=== PATIENT | female | born 1945 | race Caucasian/White ===

== ENCOUNTER → 2016-08-17 | Outpatient (CLI) | payer MEDICARE, BC ==
--- NOTE | 2016-08-18 15:45 | BD ---
EXAMINATION TYPE: MG DEXA axial skeleton. DATE OF EXAM: 08/17/2016 4:15 PM COMPARISON: 2016 CLINICAL HISTORY: osteoarthritis Height: 5'3 Weight: 232 FRAX RISK QUESTIONS: Alcohol (3 or more units per day): no Family History (Parent hip fracture): no Glucocorticoids (More than 3mos): no (Ex: prednisone, prednisolone, methylprednisolone, dexamethasone, and hydrocortisone). History of Fracture in Adulthood: yes Secondary Osteoporosis: 1. Type 1 Diabetes: no 2. Hyperthyroidism: no 3. Menopause before 45: yes 4. Malnutrition: no 5. Chronic liver disease: no Rheumatoid Arthritis: yes Current Tobacco Use: no RISK FACTORS HISTORY OF: Surgery to Spine/ When: 2016 lumbar Other Fractures since Age 52: When: age 52 Family History of Osteoporosis: Active: Postmenopausal woman: MEDICATIONS: Osteoporosis Medications: Which medication: nose spray How Lon years Additional Medications: blood pressure, cholesterol, heart Additional History: osteoarthritis EXAM MEASUREMENTS: Bone mineral density about the R hip (g/cm2): 0.824 Bone mineral density about the L hip (g/cm2): 0.848 T Score values are as follows: -----R Neck: -1.5 -----L Neck: -1.4 -----R Intertrochanter: -0.6 -----L Intertrochanter: 0.7 Bone mineral density has: Decreased -1.5% since study of: 07/24/2015 IMPRESSION: Osteopenia (T Score between -2.5 and -1 as noted by T score values : Shubham Hips There is slightly increased risk of fracture and the patient may be considered for treatment. Re-Screen 1-2 years. NOTE: T-SCORE=SD OF THE YOUNG ADULT MEAN.
--- NOTE | 2016-08-19 08:57 | MM ---
Reason for exam: screening (asymptomatic). Last mammogram was performed 1 year and 1 month ago. History: Patient is postmenopausal. Physical Findings: A clinical breast exam by your physician is recommended on an annual basis and results should be correlated with mammographic findings. MG Screening Mammo w CAD Bilateral CC and MLO view(s) were taken. Prior study comparison: July 24, 2015, bilateral MG screening mammo w CAD. July 02, 2014, bilateral MG screening mammo w CAD. There are scattered fibroglandular densities. No significant changes when compared with prior studies. ASSESSMENT: Benign, BI-RAD 2 RECOMMENDATION: Routine screening mammogram of both breasts in 1 year.
== END | disposition home or self-care (01) ==
LOC: RADMAMWWP 15:02
PROVIDERS: ATTEND Family Medicine
DX: Z12.31 Encounter for screening mammogram for malignant neoplasm of breast (principal); M85.852 Other specified disorders of bone density and structure, left thigh; M85.851 Other specified disorders of bone density and structure, right thigh
CPT/HCPCS: 77080; G0202

== ENCOUNTER 2017-05-09 03:03 | Emergency (ER) | payer MEDICARE, BC ==
[2017-05-09] MEDS: ACETAMINOPHEN TAB 325 MG TAB PO STA ×2 (04:06→10:29)
[2017-05-09 04:12] LABS: ALT 24 U/L (9-52); AST 41 U/L (14-36); Alkaline Phosphatase 74 U/L (38-126); Amylase 60 U/L (30-110); Anion Gap 9 mmol/L; Blood Urea Nitrogen 36 mg/dL (7-17); Calcium 9.3 mg/dL (8.4-10.2); Carbon Dioxide 22 mmol/L (22-30); Chloride 107 mmol/L (98-107); Glucose 143 mg/dL (74-99); Magnesium 2.1 mg/dL (1.6-2.3); Non-African American GFR(MDRD) >60 (>60 ml/min/1.73 sqM); Potassium 5.3 mmol/L (3.5-5.1); Sodium 138 mmol/L (137-145); Total Protein 7.9 g/dL (6.3-8.2)
[2017-05-09 04:21] LABS: Basophils % (A) 1 %; CH 31.1; CHCM 32.2; Eosinophils # (A) 0.1 k/uL (0-0.7); Eosinophils % (A) 2 %; HCT 41.7 % (34.0-46.0); HDW 2.41; HGB 13.3 gm/dL (11.4-16.0); Luc # (Auto) 0.21; Luc % (Auto) 3; Lymphocytes # (A) 2.1 k/uL (1.0-4.8); Lymphocytes % (A) 27 %; MCH 31.1 pg (25.0-35.0); MCHC 31.9 g/dL (31.0-37.0); MCV 97.3 fL (80.0-100.0); Mean Platelet Volume 7.4; Monocytes # (A) 0.4 k/uL (0-1.0); Monocytes % (A) 6 %; Neutrophils # (A) 4.7 k/uL (1.3-7.7); Neutrophils % (A) 62 %; RBC 4.29 m/uL (3.80-5.40); RDW 13.2 % (11.5-15.5); WBC 7.5 k/uL (3.8-10.6); WBC (Perox) 7.21
[2017-05-09 04:25] LABS: INR 1.1 (<1.2); Partial Thromboplastin Time 21.9 sec (22.0-30.0); Prothrombin Time 10.9 sec (9.0-12.0)
[2017-05-09 04:37] LABS: Creatine Kinase MB 1.7 ng/mL (0.0-2.4)
[2017-05-09 04:39] LABS: Troponin I 0.147 ng/mL (0.000-0.034)
--- NOTE | 2017-05-09 04:53 | XR ---
EXAM: XR Chest, 1 View CLINICAL HISTORY: Right flank pain that radiates into the chest. TECHNIQUE: Frontal view of the chest. COMPARISON: 09/03/2011 FINDINGS: Lungs: Unchanged. No consolidation. Pleural space: Unremarkable. No pneumothorax. Heart: Unremarkable. No cardiomegaly. Mediastinum: Unremarkable. Bones/joints: Osseous structures are unchanged. IMPRESSION: No acute findings without significant interval change.
[2017-05-09] MEDS ORDERED: HEPARIN SODIUM,PORCINE 5,000 UNIT/ML 1 ML VIAL IV ONE (04:58)
[2017-05-09] MEDS ORDERED: HEPARIN SODIUM,PORCINE 5,000 UNIT/ML 1 ML VIAL IV PRN (04:58)
[2017-05-09] MEDS ORDERED: HEPARIN SODIUM,PORCINE/D5W PMX 25,000 UNIT in DEXTROSE/WATER 1 500ML.BAG IV SCH (05:00)
[2017-05-09] MEDS ORDERED: NITROGLYCERIN SL TABS 0.4 MG TAB SUBLINGUAL PRN (08:33)
[2017-05-09] MEDS ORDERED: KETOTIFEN 0.025% OPHTH DROPS 5 ML BTL BOTH EYES PRN (08:36)
[2017-05-09] MEDS ORDERED: METOCLOPRAMIDE 10 MG TAB PO PRN (08:36)
--- NOTE | 2017-05-09 08:58 | ED ---
Chest Pain HPI - General Chief Complaint: Chest Pain Stated Complaint: chest pain Time Seen by Provider: 05/09/17 03:15 Source: EMS Mode of arrival: EMS Limitations: no limitations - History of Present Illness Initial Comments: This patient is a 71-year-old woman who presents to be evaluated for pain to the mid back that radiates around both sides (contrary to triage note which states around one side). Patient states that it started little under an hour before she came in. She was at rest. She states the pain was severe, and felt like a rope wrapped around her. She states that has improved a little bit. She felt like he was hard to take a breath. Patient does not acknowledge worsening or relieving factors. MD Complaint: chest pain Onset/Timin -: hour(s) Onset: during rest Pain Location: other (Mid back) Severity: severe Quality: tightness Consistency: constant Improves With: nothing Worsens With: nothing Anginal Symptoms: dyspnea - Related Data Home Medications Medication Instructions Recorded Confirmed Atenolol [Tenormin] 25 mg PO BID 03/03/14 05/09/17 Azelastine HCl [Optivar] 6 ml OP DAILY PRN 03/03/14 05/09/17 Calcitonin Nasal [Fortical] 0.09 ml NASAL DAILY 03/03/14 05/09/17 Calcium Carbonate [Tums] 500 mg PO TID 03/03/14 05/09/17 Clopidogrel [Plavix] 75 mg PO DAILY 03/03/14 05/09/17 Colesevelam [Welchol] 2 tab PO TID 03/03/14 05/09/17 EPINEPHrine [Epipen 2-Sam] 0.3 mg IM ONCE PRN 03/03/14 05/09/17 Gordon 4 % 1 drop OP QID 03/03/14 05/09/17 Hydrochlorothiazide [Hydrodiuril] 12.5 mg PO DAILY 03/03/14 05/09/17 Meclizine [Antivert] 12.5 mg PO Q6H 03/03/14 05/09/17 Olmesartan [Benicar] 20 mg PO DAILY 03/03/14 05/09/17 Potassium Chloride [Klor-Con 10] 10 meq PO DAILY 03/03/14 05/09/17 RABEprazole SODIUM [Aciphex] 20 mg PO DAILY 03/03/14 05/09/17 Triamcinolone Acetonide [Nasacort 2 spray NASAL DAILY 03/03/14 05/09/17 Aq] amLODIPine BESYLATE [Norvasc] 5 mg PO BID 03/03/14 04/04/16 Previous Rx's Medication Instructions Recorded Metoclopramide HCl [Reglan] 10 mg PO Q6HR PRN #15 tablet 03/03/14 Allergies Allergy/AdvReac Type Severity Reaction Status Date / Time aspirin Allergy Unknown Verified 05/09/17 03:10 butorphanol tartrate Allergy Unknown Verified 05/09/17 03:10 [From Stadol] caffeine Allergy Unknown Verified 05/09/17 03:10 cefaclor [From Ceclor] Allergy Unknown Verified 05/09/17 03:10 cefpodoxime proxetil Allergy Unknown Verified 05/09/17 03:10 [From Vantin] cefuroxime axetil Allergy Unknown Verified 05/09/17 03:10 [From Ceftin] ciprofloxacin [From Cipro] Allergy Unknown Verified 05/09/17 03:10 ciprofloxacin HCl Allergy Unknown Verified 05/09/17 03:10 [From Cipro] doxepin Allergy Unknown Verified 05/09/17 03:10 Iodinated Contrast- Oral and Allergy Unknown Verified 05/09/17 03:10 IV Dye [Iodinated Contrast Media - IV Dye] iodine Allergy Unknown Verified 05/09/17 03:10 ketoprofen [From Oruvail] Allergy Unknown Verified 05/09/17 03:10 lidocaine Allergy Unknown Verified 05/09/17 03:10 [From Terramycin (with lidocaine)] loratadine [From Claritin] Allergy Unknown Verified 05/09/17 03:10 methylprednisolone sodium Allergy Unknown Verified 05/09/17 03:10 succinate [From Solu-Medrol] metronidazole [From Flagyl] Allergy Unknown Verified 05/09/17 03:10 ofloxacin [From Floxin] Allergy Unknown Verified 05/09/17 03:10 oxycodone HCl [From Percocet] Allergy Unknown Verified 05/09/17 03:10 oxytetracycline Allergy Unknown Verified 05/09/17 03:10 [From Terramycin (with lidocaine)] penicillin V potassium Allergy Unknown Verified 05/09/17 03:10 [From Pen-Vee K] pitavastatin calcium Allergy Unknown Verified 05/09/17 03:10 [From Livalo] propoxyphene napsylate Allergy Unknown Verified 05/09/17 03:10 [From Darvocet-N] quinapril HCl [From Accupril] Allergy Unknown Verified 05/09/17 03:10 shellfish derived Allergy Unknown Verified 05/09/17 03:10 solifenacin succinate Allergy Unknown Verified 05/09/17 03:10 [From Vesicare] Sulfa (Sulfonamide Allergy Unknown Verified 05/09/17 03:10 Antibiotics) Tetanus Vaccines and Toxoid Allergy Unknown Verified 05/09/17 03:10 [Tetanus Vaccines & Toxoid] nylon Allergy Unknown Uncoded 05/09/17 03:10 rheomacrodex Allergy Unknown Uncoded 05/09/17 03:10 trianlin Allergy Unknown Uncoded 05/09/17 03:10 Review of Systems ROS Statement: Those systems with pertinent positive or pertinent negative responses have been documented in the HPI. ROS Other: All systems not noted in ROS Statement are negative. Constitutional: Denies: fever, chills Respiratory: Denies: cough, dyspnea Cardiovascular: Reports: as per HPI, chest pain. Denies: palpitations, edema, syncope Gastrointestinal: Denies: abdominal pain, nausea, vomiting Genitourinary: Denies: dysuria Musculoskeletal: Reports: as per HPI, back pain Skin: Denies: rash Neurological: Denies: headache, weakness, numbness Psychiatric: Reports: anxiety EKG Findings - EKG Results: EKG: interpreted by AMALIA WNL, sinus rhythm, normal axis, normal QRS - Blocks, [place], Hypertrophy, ST Abn: Repolarization changes or abnormalities: nonspecific abnormality, ST segment, and/or T wave Past Medical History Past Medical History: GERD/Reflux, Hyperlipidemia, Hypertension, Pulmonary Embolus (PE), Rheumatoid Arthritis (RA) Additional Past Medical History / Comment(s): hypoglycemia, reynauds syndrome, ulcers, hiatal hernia, bells palsy History of Any Multi-Drug Resistant Organisms: None Reported Past Surgical History: Appendectomy, Orthopedic Surgery Additional Past Surgical History / Comment(s): carpal tunnel sx, hemmorhoid sx, miscarriage, left carotid Past Psychological History: No Psychological Hx Reported Smoking Status: Former smoker Past Alcohol Use History: None Reported Past Drug Use History: None Reported General Exam Limitations: no limitations General appearance: alert, in no apparent distress Head exam: Present: atraumatic, normocephalic Eye exam: Present: normal appearance. Absent: scleral icterus, conjunctival injection ENT exam: Present: normal oropharynx Neck exam: Present: normal inspection, full ROM Respiratory exam: Present: normal lung sounds bilaterally. Absent: respiratory distress, wheezes, rales, rhonchi, stridor, chest wall tenderness Cardiovascular Exam: Present: regular rate, normal rhythm, normal heart sounds. Absent: systolic murmur, diastolic murmur, rubs, gallop GI/Abdominal exam: Present: soft. Absent: distended, tenderness, guarding, rebound, mass Extremities exam: Present: normal inspection, normal capillary refill. Absent: pedal edema, calf tenderness Back exam: Present: normal inspection. Absent: CVA tenderness (R), CVA tenderness (L) Neurological exam: Present: alert Skin exam: Present: warm, dry, intact, normal color. Absent: rash Course Vital Signs 05/09/17 05/09/17 05/09/17 03:04 04:07 04:49 Temperature 98.3 F 97.4 F L Pulse Rate 68 56 L 60 Respiratory 20 16 20 Rate Blood Pressure 116/55 95/49 107/53 O2 Sat by Pulse 99 99 98 Oximetry 05/09/17 05/09/17 05/09/17 05:21 06:22 07:30 Temperature Pulse Rate 62 67 72 Respiratory 18 18 Rate Blood Pressure 118/56 107/59 O2 Sat by Pulse 99 99 98 Oximetry 05/09/17 05/09/17 09:06 09:35 Temperature Pulse Rate 74 74 Respiratory 16 16 Rate Blood Pressure 127/58 127/58 O2 Sat by Pulse 100 100 Oximetry - Reevaluation(s) Reevaluation #1: 05/09/17 09:04 Patient's repeat 12-lead ECG shows normal sinus rhythm. The intervals are normal. [place] is normal. There may be very subtle ST depression in lead V4. 05/09/17 09:05 Reevaluation #2: 05/09/17 09:04 Patient's repeat troponin came back elevated at 7.5 and I discussed case with Dr. Irvin who will come and see the patient Chest Pain [facility] This patient is a 71-year-old woman with back pain that radiates around the sides of her chest. Her initial EKG nondiagnostic. The initial cardiac enzyme is slightly elevated, and she is started on heparin. Repeat EKG is Nondiagnostic, but the repeat troponin is elevated at 7.5. Case discussed with the foam machine operator who did come and see the patient and offer heart catheterization here, but the patient is declining, stating that she gets her cardiology care through [facility] and requests transfer there. I discussed the case with the creative services coordinator there and they will accept, Dr. Corley as accepting physician. Disposition Clinical Impression: Acute coronary syndrome, Non-STEMI (non-ST elevated myocardial infarction) Disposition: OTHER INSTITUTION NOT DEFINED Condition: Serious Referrals: Hakeem Torres DO [Primary Care Provider] - 1-2 days - Out of Hospital Transfer - Req. Specs Out of Hospital Transfer - Requested Specifics: Other Emergency Center
[2017-05-09] MEDS ORDERED: CALCIUM CARBONATE 500 MG CHEWABLE PO SCH (09:00)
[2017-05-09] MEDS ORDERED: METOPROLOL TARTRATE 25 MG TAB PO SCH (09:00)
[2017-05-09] MEDS ORDERED: PANTOPRAZOLE 40 MG TABLET PO SCH (09:00)
[2017-05-09] MEDS ORDERED: COLESEVELAM 625 MG TAB PO SCH (09:00)
[2017-05-09] MEDS ORDERED: POTASSIUM CHLORIDE ER 10 MEQ TAB.ER.PRT PO SCH (09:00)
[2017-05-09] MEDS ORDERED: HYDROCHLOROTHIAZIDE 12.5 MG CAP PO SCH (09:00)
[2017-05-09] MEDS ORDERED: LOSARTAN 50 MG TAB PO SCH (09:00)
[2017-05-09] MEDS ORDERED: ATENOLOL 25 MG TAB PO SCH (09:00)
[2017-05-09] MEDS ORDERED: FLUTICASONE 50MCG/SPRAY NASAL 16GM NASAL SCH (09:00)
[2017-05-09] MEDS ORDERED: CLOPIDOGREL 75 MG TAB PO SCH (09:00)
[2017-05-09] MEDS ORDERED: amLODIPine 5 MG TAB PO SCH (09:00)
[2017-05-09 09:07] VITALS: PULSE 74; RESP 16
[2017-05-09] MEDS ORDERED: HYDROmorphone 1 MG/ML 1 ML SYRINGE IVP STA (09:30)
[2017-05-09] MEDS ORDERED: MECLIZINE 12.5 MG TAB PO SCH (10:00)
[2017-05-09] MEDS ORDERED: ACETAMINOPHEN TAB 325 MG TAB PO STA (10:26)
[2017-05-09 10:28] VITALS: BP 121/56; TEMP 98
--- NOTE | 2017-05-09 10:32 | CONS ---
CONSULTATION Mrs. Reinoso is a 71-year-old female, came to the emergency room earlier this morning. She woke up from the sleep. The patient started having pain in the back and subsequently it was radiating down to the chest. Pain was associated with nausea and sweating. The pain was moderate to severe and the pain persisted and she was brought to the emergency room. In emergency room, initial EKG showed mild ST depression in the anterolateral leads. The first troponin was a borderline. The second troponin was 7. Patient still has some mild chest discomfort. This patient has a history of hypertension, hyperlipidemia and peripheral vascular disease. Patient had a carotid endarterectomy done about a year ago at the [facility]. MEDICATIONS: The patient's current primary medications include AcipHex, Antivert, Benicar, Fortical spray, hydrochlorothiazide half a tablet daily, Klor-Con, Lipitor 10 mg daily, Nasacort, Tenormin 25 mg daily, Welchol 625 mg 2 tablets daily and Zyrtec p.r.n. ALLERGIES: PATIENT IS ALLERGIC TO ASPIRIN. PHYSICAL EXAMINATION: At present reveals a 71-year-old, obesely built female who does not appear to be in any acute distress. The patient is having mild discomfort. The patient's blood pressure is 110/80 mmHg. HEENT examination is negative. NECK: Supple. There is no increase in jugular venous pressure. Both the carotid pulses are felt. There is no bruit. Chest is symmetrical. Heart the PMI is not felt. First and second heart sounds are normal. There is a grade 2/6 ejection systolic murmur noted. Lungs are clinically clear to auscultation and percussion. Abdomen is negative. Extremities peripheral pulses are not felt. Both femoral pulses are 2+. EKG shows normal sinus rhythm with mild ST depression in V1 to V2 to V4. The patient's creatinine is normal. FINAL IMPRESSION: 1. This patient came with a prolonged episode of chest pain. Second troponin is 7.0. EKG shows mild ST-segment depression in the anterior lateral leads. This is suggestive of non-Q-wave myocardial infarction. 2. Patient has a known history of peripheral vascular disease with a prior history of carotid endarterectomy. The patient has been heparinized. The patient wishes to be transferred to the [facility] to the revenue specialist she has been following. The risk and benefits were fully explained to the patient. At present, patient clinically is stable and we will make arrangements for the transfer to [facility]. MMPRIMO / THOM: [id number] /
[2017-05-09] MEDS ORDERED: ATORVASTATIN 40 MG TAB PO SCH (21:00)
== END 2017-05-09 10:33 | disposition other institution (70) ==
LOC: EC 03:03 → UNDOADMIN 08:33 → 6ICU 08:33 → EC 10:33
DX: I21.4 Non-ST elevation (NSTEMI) myocardial infarction (principal); I24.9 Acute ischemic heart disease, unspecified; E78.5 Hyperlipidemia, unspecified; I10 Essential (primary) hypertension; K21.9 Gastro-esophageal reflux disease without esophagitis; Z86.711 Personal history of pulmonary embolism; Z87.891 Personal history of nicotine dependence; Z79.02 Long term (current) use of antithrombotics/antiplatelets; Z79.52 Long term (current) use of systemic steroids; Z79.899 Other long term (current) drug therapy; Z88.0 Allergy status to penicillin; Z88.1 Allergy status to other antibiotic agents; Z88.2 Allergy status to sulfonamides; Z88.4 Allergy status to anesthetic agent; Z88.5 Allergy status to narcotic agent; Z88.6 Allergy status to analgesic agent; Z88.7 Allergy status to serum and vaccine; Z88.8 Allergy status to other drugs, medicaments and biological substances; Z91.013 Allergy to seafood; Z91.041 Radiographic dye allergy status; Z91.048 Other nonmedicinal substance allergy status
CPT/HCPCS: 99285 ×2; 96365 ×2; 96366 ×5; 96376 ×2; 36415; 93005; 85379; 80053; 82150; 82550; 82553; 83690; 83735; 84484; 85025; 85610; 85730; 71010; J1644 ×2

== ENCOUNTER 2017-08-07 10:07 | Emergency (ER) | payer MEDICARE, BC ==
[2017-08-07 10:35] VITALS: RESP 18
--- NOTE | 2017-08-07 11:33 | ED ---
ENT HPI - General Chief complaint: ENT Stated complaint: NOSEBLEED Time Seen by Provider: 08/07/17 10:50 Source: patient Mode of arrival: ambulatory Limitations: no limitations - History of Present Illness Initial comments: This is a 72-year-old female with a history of CAD and Brilinta and aspirin presents emergency room for a nosebleed. She states it started this morning. Going on for approximately 2 hours. She states that it does go down into her throat every once a while however is mostly coming out from the naris. She denies any lightheadedness or dizziness. No chest pain or short of breath. She states that she is seen her doctor for these nosebleeds multiple times. She is tried home remedies without resolution. Upon evaluation the patient had a nasal clamp on and was not complaining of any further bleeding. - Related Data Home Medications Medication Instructions Recorded Confirmed Atenolol [Tenormin] 25 mg PO BID 03/03/14 05/19/17 Calcitonin Nasal [Fortical] 1 spray NASAL DAILY 03/03/14 05/19/17 Colesevelam [Welchol] 1,875 mg PO BID 03/03/14 05/19/17 EPINEPHrine [Epipen 2-Sam] 0.3 mg IM ONCE PRN 03/03/14 05/19/17 Meclizine [Antivert] 6.25 mg PO Q6H PRN 03/03/14 05/19/17 Olmesartan [Benicar] 20 mg PO DAILY 03/03/14 05/19/17 RABEprazole SODIUM [Aciphex] 20 mg PO DAILY 03/03/14 05/19/17 Triamcinolone Acetonide [Nasacort 2 spray NASAL DAILY PRN 03/03/14 05/19/17 Aq] amLODIPine BESYLATE [Norvasc] 5 mg PO QAM 03/03/14 05/19/17 Amiodarone [Cordarone] 400 mg PO DAILY 05/19/17 05/19/17 Apixaban [Eliquis] 5 mg PO Q12H 05/19/17 05/19/17 Aspirin EC [Ecotrin Low Dose] 81 mg PO DAILY@0900 05/19/17 05/19/17 Atorvastatin [Lipitor] 5 mg PO HS 05/19/17 05/19/17 Calcium Gluconate 500mg 500 mg PO DAILY 05/19/17 05/19/17 Cetirizine HCl [Zyrtec] 2.5 mg PO BID 05/19/17 05/19/17 Hydrochlorothiazide 12.5mg Tab 3.125 mg PO SUSA 05/19/17 05/19/17 Hydrochlorothiazide 12.5mg Tab 6.25 mg PO MOWEFR 05/19/17 05/19/17 Potassium Chloride ER [K-Dur 20] 10 meq PO HS 05/19/17 05/19/17 Potassium Chloride ER [K-Dur 20] 20 meq PO QAM 05/19/17 05/19/17 Ticagrelor [Brilinta] 90 mg PO BID 05/19/17 05/19/17 amLODIPine [Norvasc] 2.5 mg PO HS 05/19/17 05/19/17 Previous Rx's Medication Instructions Recorded Clindamycin [Cleocin] 150 mg PO Q8H #15 capsule 05/19/17 Allergies Allergy/AdvReac Type Severity Reaction Status Date / Time aspirin Allergy Unknown Verified 08/07/17 10:35 butorphanol tartrate Allergy Unknown Verified 08/07/17 10:35 [From Stadol] caffeine Allergy Unknown Verified 08/07/17 10:35 cefaclor [From Ceclor] Allergy Unknown Verified 08/07/17 10:35 cefpodoxime proxetil Allergy Unknown Verified 08/07/17 10:35 [From Vantin] cefuroxime axetil Allergy Unknown Verified 08/07/17 10:35 [From Ceftin] ciprofloxacin [From Cipro] Allergy Unknown Verified 08/07/17 10:35 ciprofloxacin HCl Allergy Unknown Verified 08/07/17 10:35 [From Cipro] doxepin Allergy Unknown Verified 08/07/17 10:35 Iodinated Contrast- Oral and Allergy Unknown Verified 08/07/17 10:35 IV Dye [Iodinated Contrast Media - IV Dye] iodine Allergy Unknown Verified 08/07/17 10:35 ketoprofen [From Oruvail] Allergy Unknown Verified 08/07/17 10:35 lidocaine Allergy Unknown Verified 08/07/17 10:35 [From Terramycin (with lidocaine)] loratadine [From Claritin] Allergy Unknown Verified 08/07/17 10:35 methylprednisolone sodium Allergy Unknown Verified 08/07/17 10:35 succinate [From Solu-Medrol] metronidazole [From Flagyl] Allergy Unknown Verified 08/07/17 10:35 ofloxacin [From Floxin] Allergy Unknown Verified 08/07/17 10:35 oxycodone HCl [From Percocet] Allergy Unknown Verified 08/07/17 10:35 oxytetracycline Allergy Unknown Verified 08/07/17 10:35 [From Terramycin (with lidocaine)] penicillin V potassium Allergy Unknown Verified 08/07/17 10:35 [From Pen-Vee K] pitavastatin calcium Allergy Unknown Verified 08/07/17 10:35 [From Livalo] propoxyphene napsylate Allergy Unknown Verified 08/07/17 10:35 [From Darvocet-N] quinapril HCl [From Accupril] Allergy Unknown Verified 08/07/17 10:35 shellfish derived Allergy Unknown Verified 08/07/17 10:35 solifenacin succinate Allergy Unknown Verified 08/07/17 10:35 [From Vesicare] Sulfa (Sulfonamide Allergy Unknown Verified 08/07/17 10:35 Antibiotics) Tetanus Vaccines and Toxoid Allergy Unknown Verified 08/07/17 10:35 [Tetanus Vaccines & Toxoid] nylon Allergy Unknown Uncoded 08/07/17 10:35 rheomacrodex Allergy Unknown Uncoded 08/07/17 10:35 trianlin Allergy Unknown Uncoded 08/07/17 10:35 Review of Systems ROS Statement: Those systems with pertinent positive or pertinent negative responses have been documented in the HPI. ROS Other: All systems not noted in ROS Statement are negative. Past Medical History Past Medical History: GERD/Reflux, Hyperlipidemia, Hypertension, Myocardial Infarction (OR), Pulmonary Embolus (PE), Rheumatoid Arthritis (RA) Additional Past Medical History / Comment(s): hypoglycemia, reynauds syndrome, ulcers, hiatal hernia, bells palsy History of Any Multi-Drug Resistant Organisms: None Reported Past Surgical History: Appendectomy, Heart Catheterization With Stent, Orthopedic Surgery Additional Past Surgical History / Comment(s): carpal tunnel sx, hemmorhoid sx, miscarriage, left carotid, right radial heart cath with 2 stents 05/09/17 Past Psychological History: No Psychological Hx Reported Smoking Status: Former smoker Past Alcohol Use History: None Reported Past Drug Use History: None Reported General Exam - General Exam Comments Initial Comments: Constitutional: Awake alert Appears comfortable Head: Normocephalic atraumatic Eyes: no conjunctival injection No scleral icterus EOMI ENT: Left near has a small ulceration on the septum anteriorly with a small amount of slow bleeding to this area. No evidence for severe bleeding. No blood going down the posterior pharynx Neck: No JVD Supple Heart: Regular rate rhythm normal S1-S2 no murmurs Lungs: Clear to auscultation bilaterally No wheezing No rales Abdomen: Soft nondistended nontender Extremities: Non edematous DP pulses intact Radial pulses intact Neuro: A&Ox3 No focal neurologic deficits Psych: Appropriate mood and affect Limitations: no limitations Course Vital Signs 08/07/17 08/07/17 10:30 11:41 Temperature 98.4 F 97.9 F Pulse Rate 71 55 L Respiratory 18 18 Rate Blood Pressure 142/78 127/58 O2 Sat by Pulse 97 96 Oximetry Medical Decision Making - Medical Decision Making Is a 72-year-old female came in for nosebleed. At time I evaluated the nosebleed was mostly resolved. I used chemical cautery over the ulceration on the septum she was monitored for 10 minutes and did not have recurrence of the bleeding. She was sent home. Told to watch for any nasal trauma. Needs return emergency Department if she has worsening bleeding and that she cannot control at home. Told to use Afrin and calm ball and nasal clamp at home if it rebleeds. Follow-up with her primary doctor. All questions were answered. Disposition Clinical Impression: Epistaxis Disposition: HOME SELF-CARE Condition: Stable Instructions: Nosebleed (ED) Referrals: Hakeem Torres DO [Primary Care Provider] - 1-2 days
[2017-08-07 11:42] VITALS: BP 127/58; PULSE 55; TEMP 97.9
== END 2017-08-07 11:41 | disposition home or self-care (01) ==
LOC: EC 10:07
DX: R04.0 Epistaxis (principal); I10 Essential (primary) hypertension; I25.2 Old myocardial infarction; E78.5 Hyperlipidemia, unspecified; K21.9 Gastro-esophageal reflux disease without esophagitis; I25.10 Atherosclerotic heart disease of native coronary artery without angina pectoris; Z86.711 Personal history of pulmonary embolism; Z87.891 Personal history of nicotine dependence; Z88.0 Allergy status to penicillin; Z88.1 Allergy status to other antibiotic agents; Z88.2 Allergy status to sulfonamides; Z88.4 Allergy status to anesthetic agent; Z88.5 Allergy status to narcotic agent; Z88.6 Allergy status to analgesic agent; Z88.7 Allergy status to serum and vaccine; Z88.8 Allergy status to other drugs, medicaments and biological substances; Z91.041 Radiographic dye allergy status; Z91.048 Other nonmedicinal substance allergy status; Z91.013 Allergy to seafood; Z79.01 Long term (current) use of anticoagulants; Z79.82 Long term (current) use of aspirin; Z79.899 Other long term (current) drug therapy
CPT/HCPCS: 30901; 99283

== ENCOUNTER 2017-08-08 19:52 | Emergency (ER) | payer MEDICARE, BC ==
[2017-08-08] MEDS ORDERED: SODIUM CHLORIDE 0.9% 1,000 ML IV STA (21:16)
[2017-08-08] MEDS ORDERED: PANTOPRAZOLE 40 MG/10 ML VIAL IVP STA (21:16)
[2017-08-08] MEDS ORDERED: ONDANSETRON 4 MG/2 ML VIAL IVP STA (21:16)
[2017-08-08] MEDS ORDERED: MAG HYDROX/AL HYDROX/SIMETH 30 ML, HYOSCYAMINE ELIXIR 10 ML, CIMETIDINE HCL 300 MG, LID... PO STA ×4 (21:17)
--- NOTE | 2017-08-08 21:22 | ED ---
Nausea/Vomiting/Diarrhea HPI - General Chief complaint: Nausea/Vomiting/Diarrhea Stated complaint: Vomiting/Chills Time Seen by Provider: 08/08/17 20:39 Source: patient, family, RN notes reviewed, old records reviewed Mode of arrival: ambulatory Limitations: no limitations - History of Present Illness Initial comments: This patient is a 72-year-old female presents today with chief complaint of vomiting and diarrhea since 3:00 this evening. She reports that she's had approximately 5 episodes of vomiting and multiple episodes of diarrhea. She states that she has had some epigastric abdominal pain related to this. She denies any food exposures that could've been related to this. She reports that she feels chilled and very dehydrated. She denies any specific chest pain or shortness of breath. She reports that she's been having some minor upper respiratory congestion for the past few weeks. Patient relates that she has had no headache vision changes or neck pain. He does relate that she's been having some back pain associated with this. Denies any urinary symptoms. - Related Data Home Medications Medication Instructions Recorded Confirmed Atenolol [Tenormin] 25 mg PO BID 03/03/14 08/08/17 Calcitonin Nasal [Fortical] 1 spray NASAL DAILY 03/03/14 08/08/17 Colesevelam [Welchol] 1,875 mg PO BID 03/03/14 08/08/17 EPINEPHrine [Epipen 2-Sam] 0.3 mg IM ONCE PRN 03/03/14 08/08/17 Meclizine [Antivert] 6.25 mg PO Q6H PRN 03/03/14 08/08/17 Olmesartan [Benicar] 20 mg PO DAILY 03/03/14 08/08/17 RABEprazole SODIUM [Aciphex] 20 mg PO DAILY 03/03/14 08/08/17 Triamcinolone Acetonide [Nasacort 2 spray NASAL DAILY PRN 03/03/14 08/08/17 Aq] amLODIPine BESYLATE [Norvasc] 5 mg PO QAM 03/03/14 08/08/17 Amiodarone [Cordarone] 200 mg PO DAILY 05/19/17 08/08/17 Aspirin EC [Ecotrin Low Dose] 81 mg PO DAILY@0900 05/19/17 08/08/17 Atorvastatin [Lipitor] 5 mg PO HS 05/19/17 08/08/17 Calcium Gluconate 500mg 500 mg PO DAILY 05/19/17 08/08/17 Cetirizine HCl [Zyrtec] 2.5 mg PO BID 05/19/17 08/08/17 Hydrochlorothiazide 12.5mg Tab 3.125 mg PO SUSA 05/19/17 08/08/17 Hydrochlorothiazide 12.5mg Tab 6.25 mg PO MOWEFR 05/19/17 08/08/17 Potassium Chloride ER [K-Dur 20] 10 meq PO HS 05/19/17 08/08/17 Potassium Chloride ER [K-Dur 20] 20 meq PO QAM 05/19/17 08/08/17 Ticagrelor [Brilinta] 90 mg PO BID 05/19/17 08/08/17 amLODIPine [Norvasc] 2.5 mg PO HS 05/19/17 08/08/17 Oxymetazoline 0.05% Nasl Rosalia 2 spray EA NOSTRIL BID PRN 08/08/17 08/08/17 [Afrin 0.05% Nasal Rosalia] Previous Rx's Medication Instructions Recorded Ondansetron Odt [Zofran Odt] 4 mg PO Q8HR PRN #12 tab 08/08/17 Allergies Allergy/AdvReac Type Severity Reaction Status Date / Time aspirin Allergy Unknown Verified 08/08/17 20:35 butorphanol tartrate Allergy Unknown Verified 08/08/17 20:35 [From Stadol] caffeine Allergy Unknown Verified 08/08/17 20:35 cefaclor [From Ceclor] Allergy Unknown Verified 08/08/17 20:35 cefpodoxime proxetil Allergy Unknown Verified 08/08/17 20:35 [From Vantin] cefuroxime axetil Allergy Unknown Verified 08/08/17 20:35 [From Ceftin] ciprofloxacin [From Cipro] Allergy Unknown Verified 08/08/17 20:35 ciprofloxacin HCl Allergy Unknown Verified 08/08/17 20:35 [From Cipro] doxepin Allergy Unknown Verified 08/08/17 20:35 Iodinated Contrast- Oral and Allergy Unknown Verified 08/08/17 20:35 IV Dye [Iodinated Contrast Media - IV Dye] iodine Allergy Unknown Verified 08/08/17 20:35 ketoprofen [From Oruvail] Allergy Unknown Verified 08/08/17 20:35 lidocaine Allergy Unknown Verified 08/08/17 20:35 [From Terramycin (with lidocaine)] loratadine [From Claritin] Allergy Unknown Verified 08/08/17 20:35 methylprednisolone sodium Allergy Unknown Verified 08/08/17 20:35 succinate [From Solu-Medrol] metronidazole [From Flagyl] Allergy Unknown Verified 08/08/17 20:35 ofloxacin [From Floxin] Allergy Unknown Verified 08/08/17 20:35 oxycodone HCl [From Percocet] Allergy Unknown Verified 08/08/17 20:35 oxytetracycline Allergy Unknown Verified 08/08/17 20:35 [From Terramycin (with lidocaine)] penicillin V potassium Allergy Unknown Verified 08/08/17 20:35 [From Pen-Vee K] pitavastatin calcium Allergy Unknown Verified 08/08/17 20:35 [From Livalo] propoxyphene napsylate Allergy Unknown Verified 08/08/17 20:35 [From Darvocet-N] quinapril HCl [From Accupril] Allergy Unknown Verified 08/08/17 20:35 shellfish derived Allergy Unknown Verified 08/08/17 20:35 solifenacin succinate Allergy Unknown Verified 08/08/17 20:35 [From Vesicare] Sulfa (Sulfonamide Allergy Unknown Verified 08/08/17 20:35 Antibiotics) Tetanus Vaccines and Toxoid Allergy Unknown Verified 08/08/17 20:35 [Tetanus Vaccines & Toxoid] nylon Allergy Unknown Uncoded 08/08/17 20:15 rheomacrodex Allergy Unknown Uncoded 08/08/17 20:15 trianlin Allergy Unknown Uncoded 08/08/17 20:15 Review of Systems ROS Statement: Those systems with pertinent positive or pertinent negative responses have been documented in the HPI. ROS Other: All systems not noted in ROS Statement are negative. Past Medical History Past Medical History: GERD/Reflux, Hyperlipidemia, Hypertension, Myocardial Infarction (RI), Pulmonary Embolus (PE), Rheumatoid Arthritis (RA) Additional Past Medical History / Comment(s): hypoglycemia, reynauds syndrome, ulcers, hiatal hernia, bells palsy History of Any Multi-Drug Resistant Organisms: None Reported Past Surgical History: Appendectomy, Heart Catheterization With Stent, Orthopedic Surgery Additional Past Surgical History / Comment(s): carpal tunnel sx, hemmorhoid sx, miscarriage, left carotid, right radial heart cath with 2 stents 05/09/17 Past Psychological History: No Psychological Hx Reported Smoking Status: Former smoker Past Alcohol Use History: None Reported Past Drug Use History: None Reported General Exam - General Exam Comments Initial Comments: This patient is a 72-year-old female. No acute distress. Limitations: no limitations General appearance: alert, in no apparent distress Head exam: Present: atraumatic, normocephalic, normal inspection Eye exam: Present: normal appearance, PERRL, EOMI. Absent: scleral icterus, conjunctival injection, periorbital swelling ENT exam: Present: normal exam, mucous membranes moist Neck exam: Present: normal inspection. Absent: tenderness, meningismus, lymphadenopathy Respiratory exam: Present: normal lung sounds bilaterally Cardiovascular Exam: Present: regular rate, normal rhythm, systolic murmur. Absent: normal heart sounds, diastolic murmur, rubs, gallop, clicks GI/Abdominal exam: Present: soft, tenderness (Minimal epigastric tenderness.), normal bowel sounds. Absent: distended, guarding, rebound, rigid Extremities exam: Present: normal inspection, full ROM, normal capillary refill. Absent: tenderness, pedal edema, joint swelling, calf tenderness Back exam: Present: normal inspection Neurological exam: Present: alert, oriented X3, CN II-XII intact Psychiatric exam: Present: normal affect, normal mood Skin exam: Present: warm, dry, intact, normal color. Absent: rash Course Vital Signs 08/08/17 08/08/17 20:10 22:16 Temperature 97.3 F L 97.6 F Pulse Rate 68 70 Respiratory 16 18 Rate Blood Pressure 136/60 117/56 O2 Sat by Pulse 98 99 Oximetry - Reevaluation(s) Reevaluation #1: 08/08/17 22:54 Patient is reevaluated reports she feels much better at this time. Denies any abdominal pain no tenderness. Medical Decision Making - Medical Decision Making This patient is a 72-year-old female presents today with sudden onset of vomiting and diarrhea. Patient has had no fever or chills. She states that she has no specific abdominal pains had some minimal epigastric tenderness. Patient EKG was reviewed and normal. Patient's labwork was reviewed. She does have a mildly elevated white blood cell count. Discusses likely inflammatory related to patient's vomiting and diarrhea. I discussed that we will give patient 2 L of fluid for dehydration. Discussed following up with her primary care physician as well. Discussed if she has any fevers chills or abdominal pain she should return for further evaluation including computed tomography scan. She KUB was reviewed and normal bowel gas pattern. Patient will be discharged at this time with diagnosis of acute nausea vomiting likely a viral gastroenteritis. Discussed she should take Zofran and small sips of fluid. Discussed return parameters. Patient is history plan will comply. - Lab Data Result diagrams: 08/08/17 21:00 08/08/17 21:00 Lab Results 08/08/17 08/08/17 08/08/17 Range/Units 21:00 21:00 21:00 WBC 14.2 H (3.8-10.6) k/uL RBC 4.57 (3.80-5.40) m/uL Hgb 14.2 (11.4-16.0) gm/dL Hct 44.5 (34.0-46.0) % MCV 97.5 (80.0-100.0) fL MCH 31.2 (25.0-35.0) pg MCHC 32.0 (31.0-37.0) g/dL RDW 15.3 (11.5-15.5) % Plt Count 178 (150-450) k/uL Neutrophils % 92 % Lymphocytes % 2 % Monocytes % 4 % Eosinophils % 1 % Basophils % 0 % Neutrophils # 13.1 H (1.3-7.7) k/uL Lymphocytes # 0.3 L (1.0-4.8) k/uL Monocytes # 0.5 (0-1.0) k/uL Eosinophils # 0.1 (0-0.7) k/uL Basophils # 0.0 (0-0.2) k/uL Sodium 142 (137-145) mmol/L Potassium 4.1 (3.5-5.1) mmol/L Chloride 107 (98-107) mmol/L Carbon Dioxide 23 (22-30) mmol/L Anion Gap 12 mmol/L BUN 30 H (7-17) mg/dL Creatinine 0.90 (0.52-1.04) mg/dL Est GFR (MDRD) Af Amer >60 (>60 ml/min/1.73 sqM) Est GFR (MDRD) Non-Af >60 (>60 ml/min/1.73 sqM) Glucose 139 H (74-99) mg/dL Calcium 9.8 (8.4-10.2) mg/dL Total Bilirubin 0.6 (0.2-1.3) mg/dL AST 22 (14-36) U/L ALT 28 (9-52) U/L Alkaline Phosphatase 69 (38-126) U/L Troponin I <0.012 (0.000-0.034) ng/mL Total Protein 8.0 (6.3-8.2) g/dL Albumin 4.7 (3.5-5.0) g/dL Amylase 112 H (30-110) U/L Lipase 331 H (23-300) U/L Urine Color Urine Appearance (Clear) Urine pH (5.0-8.0) Ur Specific [place] (1.001-1.035) Urine Protein (Negative) Urine Glucose (UA) (Negative) Urine Ketones (Negative) Urine Blood (Negative) Urine Nitrite (Negative) Urine Bilirubin (Negative) Urine Urobilinogen (<2.0) mg/dL Ur Leukocyte Esterase (Negative) Urine RBC (0-5) /hpf Urine WBC (0-5) /hpf Ur Squamous Epith Cells (0-4) /hpf Urine Bacteria (None) /hpf Hyaline Casts (0-2) /lpf Urine Mucus (None) /hpf Influenza Type A RNA (Not Detectd) Influenza Type B (PCR) (Not Detectd) 08/08/17 08/08/17 Range/Units 21:38 21:38 WBC (3.8-10.6) k/uL RBC (3.80-5.40) m/uL Hgb (11.4-16.0) gm/dL Hct (34.0-46.0) % MCV (80.0-100.0) fL MCH (25.0-35.0) pg MCHC (31.0-37.0) g/dL RDW (11.5-15.5) % Plt Count (150-450) k/uL Neutrophils % % Lymphocytes % % Monocytes % % Eosinophils % % Basophils % % Neutrophils # (1.3-7.7) k/uL Lymphocytes # (1.0-4.8) k/uL Monocytes # (0-1.0) k/uL Eosinophils # (0-0.7) k/uL Basophils # (0-0.2) k/uL Sodium (137-145) mmol/L Potassium (3.5-5.1) mmol/L Chloride (98-107) mmol/L Carbon Dioxide (22-30) mmol/L Anion Gap mmol/L BUN (7-17) mg/dL Creatinine (0.52-1.04) mg/dL Est GFR (MDRD) Af Amer (>60 ml/min/1.73 sqM) Est GFR (MDRD) Non-Af (>60 ml/min/1.73 sqM) Glucose (74-99) mg/dL Calcium (8.4-10.2) mg/dL Total Bilirubin (0.2-1.3) mg/dL AST (14-36) U/L ALT (9-52) U/L Alkaline Phosphatase (38-126) U/L Troponin I (0.000-0.034) ng/mL Total Protein (6.3-8.2) g/dL Albumin (3.5-5.0) g/dL Amylase (30-110) U/L Lipase (23-300) U/L Urine Color Yellow Urine Appearance Cloudy H (Clear) Urine pH 5.5 (5.0-8.0) Ur Specific [place] 1.019 (1.001-1.035) Urine Protein 1+ H (Negative) Urine Glucose (UA) Negative (Negative) Urine Ketones Negative (Negative) Urine Blood Negative (Negative) Urine Nitrite Negative (Negative) Urine Bilirubin Negative (Negative) Urine Urobilinogen <2.0 (<2.0) mg/dL Ur Leukocyte Esterase Negative (Negative) Urine RBC 2 (0-5) /hpf Urine WBC 1 (0-5) /hpf Ur Squamous Epith Cells 3 (0-4) /hpf Urine Bacteria Occasional H (None) /hpf Hyaline Casts 118 H (0-2) /lpf Urine Mucus Many H (None) /hpf Influenza Type A RNA Not Detected (Not Detectd) Influenza Type B (PCR) Not Detected (Not Detectd) 08/08/17 22:48 EKG shows normal sinus rhythm, normal EKG noted. Ventricularly of 70 bpm. IN interval 176 most seconds. QRS duration 88 ms. QT QTc is 448/483 ms. No evidence of ST elevation or T-wave inversion. Notrauma ventricular arrhythmias. - Radiology Data Radiology results: report reviewed KUB is reviewed and negative for any acute process. Disposition Clinical Impression: Gastroenteritis, Vomiting, Acute diarrhea Disposition: HOME SELF-CARE Condition: Good Instructions: Acute Nausea and Vomiting (ED) Additional Instructions: Patient should have clear liquids for the next any 4 hours. Take them and nausea medicine as needed every 8 hours. Recommended following up with her primary care physician. Return to the emergency department if there are any alarming signs or symptoms occur including fevers, chills, continued diarrhea or vomiting for more than 24 hours. Return if there is any specific abdominal pain. Prescriptions: Ondansetron Odt [Zofran Odt] 4 mg PO Q8HR PRN #12 tab PRN Reason: Nausea Referrals: Hakeem Torres DO [Primary Care Provider] - 1-2 days Time of Disposition: 22:57
[2017-08-08 21:29] LABS: Basophils % (A) 0 %; Eosinophils # (A) 0.1 k/uL (0-0.7); Eosinophils % (A) 1 %; HCT 44.5 % (34.0-46.0); HGB 14.2 gm/dL (11.4-16.0); Lymphocytes # (A) 0.3 k/uL (1.0-4.8); Lymphocytes % (A) 2 %; MCH 31.2 pg (25.0-35.0); MCV 97.5 fL (80.0-100.0); Mean Platelet Volume 8.5; Monocytes # (A) 0.5 k/uL (0-1.0); Monocytes % (A) 4 %; Neutrophils # (A) 13.1 k/uL (1.3-7.7); Neutrophils % (A) 92 %; Platelet Count 178 k/uL (150-450); RBC 4.57 m/uL (3.80-5.40); RDW 15.3 % (11.5-15.5); WBC 14.2 k/uL (3.8-10.6)
[2017-08-08 21:39] LABS: ALT 28 U/L (9-52); AST 22 U/L (14-36); Albumin 4.7 g/dL (3.5-5.0); Alkaline Phosphatase 69 U/L (38-126); Amylase 112 U/L (30-110); Anion Gap 12 mmol/L; Blood Urea Nitrogen 30 mg/dL (7-17); Calcium 9.8 mg/dL (8.4-10.2); Carbon Dioxide 23 mmol/L (22-30); Chloride 107 mmol/L (98-107); Glucose 139 mg/dL (74-99); Lipase 331 U/L (23-300); Potassium 4.1 mmol/L (3.5-5.1); Sodium 142 mmol/L (137-145); Total Bilirubin 0.6 mg/dL (0.2-1.3)
[2017-08-08 21:54] LABS: Appearance,Urine Cloudy (Clear); Bacteria,Urine Occasional /hpf; Bilirubin,Urine Negative (Negative); Blood,Urine Negative (Negative); Color,Urine Yellow; Glucose,Urine (UA) Negative (Negative); Hyaline Casts,Urine 118 /lpf (0-2); Ketones,Urine Negative (Negative); Leukocyte Esterase,Urine Negative (Negative); Mucus,Urine Many /hpf; Nitrite,Urine Negative (Negative); PH, Urine 5.5 (5.0-8.0); Protein,Urine 1+ (Negative); RBC,Urine 2 /hpf (0-5); Specific Gravity,Urine 1.019 (1.001-1.035); Squamous Epithelial Cell,Urine 3 /hpf (0-4); Urobilinogen,Urine <2.0 mg/dL (<2.0); WBC,Urine 1 /hpf (0-5)
--- NOTE | 2017-08-08 21:59 | XR ---
EXAMINATION TYPE: XR KUB DATE OF EXAM: 08/08/2017 9:50 PM CLINICAL HISTORY: Abdominal pain TECHNIQUE: Single supine KUB image of the abdomen is obtained. COMPARISON: None. FINDINGS: Scattered gas is seen in non-distended small bowel loops. Gas and fecal material is seen in non-distended colon. There is no visceromegaly, pneumoperitoneum, or abnormal calcification apprecia soo. The lung bases are clear and the osseous structures are intact. Fusion hardware is noted in the lumbar spine. IMPRESSION: Overall nonobstructive bowel gas pattern.
[2017-08-08 22:17] VITALS: BP 117/56; PULSE 70; RESP 18; TEMP 97.6
[2017-08-08] MEDS ORDERED: SODIUM CHLORIDE 0.9% 1,000 ML IV ONE (22:23)
[2017-08-08] MEDS ORDERED: ONDANSETRON 4 MG ODT STARTER PACK 2 TAB BTL PO STA (22:57)
== END 2017-08-08 23:25 | disposition home or self-care (01) ==
LOC: EC 19:52
DX: K52.9 Noninfective gastroenteritis and colitis, unspecified (principal); K21.9 Gastro-esophageal reflux disease without esophagitis; E78.5 Hyperlipidemia, unspecified; I10 Essential (primary) hypertension; I25.2 Old myocardial infarction; Z90.49 Acquired absence of other specified parts of digestive tract; Z95.5 Presence of coronary angioplasty implant and graft; Z87.891 Personal history of nicotine dependence; Z79.899 Other long term (current) drug therapy; Z79.82 Long term (current) use of aspirin; Z88.6 Allergy status to analgesic agent; Z88.8 Allergy status to other drugs, medicaments and biological substances; Z88.1 Allergy status to other antibiotic agents; Z91.041 Radiographic dye allergy status; Z91.048 Other nonmedicinal substance allergy status; Z88.4 Allergy status to anesthetic agent; Z88.5 Allergy status to narcotic agent; Z88.0 Allergy status to penicillin; Z91.013 Allergy to seafood; Z88.7 Allergy status to serum and vaccine; Z88.2 Allergy status to sulfonamides
CPT/HCPCS: 99284; 96374; 96375; 96361 ×2; 36415; 93005; 80053; 82150; 83690; 84484; 85025; 81001; 87086; 87502; 74018; J2405; S0119; C9113

== ENCOUNTER → 2017-10-01 | Outpatient (CLI) | payer MEDICARE, BC ==
--- NOTE | 2017-10-04 12:46 | MM ---
Reason for exam: screening (asymptomatic). Last mammogram was performed 1 year and 2 months ago. History: Patient is postmenopausal. Physical Findings: A clinical breast exam by your physician is recommended on an annual basis and results should be correlated with mammographic findings. MG Screening Mammo w CAD Bilateral CC and MLO view(s) were taken. Prior study comparison: August 17, 2016, bilateral MG screening mammo w CAD. July 24, 2015, bilateral MG screening mammo w CAD. The breast tissue is almost entirely fat. No significant changes when compared with prior studies. ASSESSMENT: Benign, BI-RAD 2 RECOMMENDATION: Routine screening mammogram of both breasts in 1 year.
== END | disposition home or self-care (01) ==
LOC: RADMAMWWP 11:10
PROVIDERS: ATTEND Family Medicine
DX: Z12.31 Encounter for screening mammogram for malignant neoplasm of breast (principal)
CPT/HCPCS: 77067

== ENCOUNTER 2017-10-13 19:14 | Emergency (ER) | payer MEDICARE, BC ==
[2017-10-13 19:24] VITALS: RESP 18
--- NOTE | 2017-10-13 19:46 | ED ---
General Adult HPI - General Chief complaint: Chest Pain Stated complaint: Chest pain/stents put in apr Time Seen by Provider: 10/13/17 19:24 Source: patient, RN notes reviewed, old records reviewed Mode of arrival: wheelchair Limitations: no limitations - History of Present Illness Initial comments: 72-year-old female presents for evaluation of chest pain. Patient has history of coronary artery disease with multiple stents placed in April at [facility]. Her waterway traffic checker is out of [facility]. Pain began at approximately 6 PM which was one hour and 40 minutes ago. Was associated with nausea and diaphoresis. Pain is present but improving at this time. She is currently on aspirin and Brilinta. She denies missing any medication. At the time of her chest pain she also had some dyspnea on palpitations. No vomiting. No abdominal pain. She does complain of some sharp shooting pains in her left arm which is resolved. She also has history of atrial fibrillation, she is not currently on anticoagulation secondary to nosebleeds. - Related Data Home Medications Medication Instructions Recorded Confirmed Atenolol [Tenormin] 25 mg PO BID@07,16 03/03/14 10/13/17 Colesevelam [Welchol] 1,250 mg PO TID 03/03/14 10/13/17 EPINEPHrine [Epipen 2-Sam] 0.3 mg IM ONCE PRN 03/03/14 10/13/17 Meclizine [Antivert] 12.5 mg PO BID PRN 03/03/14 10/13/17 Olmesartan [Benicar] 20 mg PO AC-LUNCH 03/03/14 10/13/17 RABEprazole SODIUM [Aciphex] 20 mg PO BID 03/03/14 10/13/17 Triamcinolone Acetonide [Nasacort 2 spray NASAL DAILY PRN 03/03/14 10/13/17 Aq] amLODIPine BESYLATE [Norvasc] 5 mg PO QAM@0900 03/03/14 10/13/17 Amiodarone [Cordarone] 200 mg PO DAILY 05/19/17 10/13/17 Aspirin EC [Ecotrin Low Dose] 81 mg PO DAILY@0900 05/19/17 10/13/17 Atorvastatin [Lipitor] 5 mg PO DAILY 05/19/17 10/13/17 Cetirizine HCl [Zyrtec] 2.5 mg PO BID 05/19/17 10/13/17 Hydrochlorothiazide 12.5mg Tab 3.125 mg PO SUSA 05/19/17 10/13/17 Hydrochlorothiazide 12.5mg Tab 6.25 mg PO MOWEFR 05/19/17 10/13/17 Potassium Chloride ER [K-Dur 20] 10 meq PO DAILY@1200 05/19/17 10/13/17 Potassium Chloride ER [K-Dur 20] 20 meq PO QAM 05/19/17 10/13/17 Ticagrelor [Brilinta] 90 mg PO DAILY 05/19/17 10/13/17 amLODIPine [Norvasc] 2.5 mg PO HS@2130 05/19/17 10/13/17 Calcitonin Nasal [Fortical 1 spray NASAL DAILY 10/13/17 10/13/17 (Miacalcin)] Calcium Gluc 500mg/Mag/Vit D 1 tab PO DAILY@1200 10/13/17 10/13/17 Carboxymethylcellulose Sodium 1 drop BOTH EYES HS 10/13/17 10/13/17 [Refresh Tears] Allergies Allergy/AdvReac Type Severity Reaction Status Date / Time aspirin Allergy Unknown Verified 10/13/17 19:54 butorphanol tartrate Allergy Unknown Verified 10/13/17 19:54 [From Stadol] caffeine Allergy Unknown Verified 10/13/17 19:54 cefaclor [From Ceclor] Allergy Unknown Verified 10/13/17 19:54 cefpodoxime proxetil Allergy Unknown Verified 10/13/17 19:54 [From Vantin] cefuroxime axetil Allergy Unknown Verified 10/13/17 19:54 [From Ceftin] ciprofloxacin [From Cipro] Allergy Unknown Verified 10/13/17 19:54 ciprofloxacin HCl Allergy Unknown Verified 10/13/17 19:54 [From Cipro] doxepin Allergy Unknown Verified 10/13/17 19:54 Iodinated Contrast- Oral and Allergy Unknown Verified 10/13/17 19:54 IV Dye [Iodinated Contrast Media - IV Dye] iodine Allergy Unknown Verified 10/13/17 19:54 ketoprofen [From Oruvail] Allergy Unknown Verified 10/13/17 19:54 lidocaine Allergy Unknown Verified 10/13/17 19:54 [From Terramycin (with lidocaine)] loratadine [From Claritin] Allergy Unknown Verified 10/13/17 19:54 methylprednisolone sodium Allergy Unknown Verified 10/13/17 19:54 succinate [From Solu-Medrol] metronidazole [From Flagyl] Allergy Unknown Verified 10/13/17 19:54 ofloxacin [From Floxin] Allergy Unknown Verified 10/13/17 19:54 oxycodone HCl [From Percocet] Allergy Unknown Verified 10/13/17 19:54 oxytetracycline Allergy Unknown Verified 10/13/17 19:54 [From Terramycin (with lidocaine)] penicillin V potassium Allergy Unknown Verified 10/13/17 19:54 [From Pen-Vee K] pitavastatin calcium Allergy Unknown Verified 10/13/17 19:54 [From Livalo] propoxyphene napsylate Allergy Unknown Verified 10/13/17 19:54 [From Darvocet-N] quinapril HCl [From Accupril] Allergy Unknown Verified 10/13/17 19:54 shellfish derived Allergy Unknown Verified 10/13/17 19:54 solifenacin succinate Allergy Unknown Verified 10/13/17 19:54 [From Vesicare] Sulfa (Sulfonamide Allergy Unknown Verified 10/13/17 19:54 Antibiotics) Tetanus Vaccines and Toxoid Allergy Unknown Verified 10/13/17 19:54 [Tetanus Vaccines & Toxoid] nylon Allergy Unknown Uncoded 10/13/17 19:24 rheomacrodex Allergy Unknown Uncoded 10/13/17 19:24 trianlin Allergy Unknown Uncoded 10/13/17 19:24 Review of Systems ROS Statement: Those systems with pertinent positive or pertinent negative responses have been documented in the HPI. ROS Other: All systems not noted in ROS Statement are negative. Past Medical History Past Medical History: GERD/Reflux, Hyperlipidemia, Hypertension, Myocardial Infarction (SD), Pulmonary Embolus (PE), Rheumatoid Arthritis (RA) Additional Past Medical History / Comment(s): hypoglycemia, reynauds syndrome, ulcers, hiatal hernia, bells palsy History of Any Multi-Drug Resistant Organisms: None Reported Past Surgical History: Appendectomy, Heart Catheterization With Stent, Orthopedic Surgery Additional Past Surgical History / Comment(s): carpal tunnel sx, hemmorhoid sx, miscarriage, left carotid, right radial heart cath with 2 stents 05/09/17 Past Psychological History: No Psychological Hx Reported Smoking Status: Former smoker Past Alcohol Use History: None Reported Past Drug Use History: None Reported General Exam Limitations: no limitations General appearance: alert, in no apparent distress Head exam: Present: atraumatic, normocephalic Eye exam: Present: normal appearance, PERRL ENT exam: Present: normal exam Neck exam: Present: normal inspection. Absent: tenderness, meningismus Respiratory exam: Present: normal lung sounds bilaterally, chest wall tenderness (Anterior chest wall tenderness which is in the location of the patient's pain complaint). Absent: respiratory distress, wheezes Cardiovascular Exam: Present: regular rate, normal rhythm, normal heart sounds GI/Abdominal exam: Present: soft. Absent: distended, tenderness Extremities exam: Present: normal inspection, full ROM, normal capillary refill. Absent: pedal edema Back exam: Present: normal inspection, full ROM. Absent: tenderness Neurological exam: Present: alert, oriented X3, CN II-XII intact. Absent: motor sensory deficit Psychiatric exam: Present: normal affect, normal mood Skin exam: Present: warm, dry, intact. Absent: cyanosis, diaphoretic Course Vital Signs 10/13/17 10/13/17 10/13/17 19:22 19:40 19:43 Temperature 98.1 F Pulse Rate 81 76 Pulse Rate [ 76 Resident Care Supervisor ] Respiratory 18 18 Rate Blood Pressure 142/71 140/62 O2 Sat by Pulse 97 98 Oximetry 10/13/17 20:52 Temperature Pulse Rate 72 Pulse Rate [ Resident Care Supervisor ] Respiratory 18 Rate Blood Pressure 124/59 O2 Sat by Pulse 97 Oximetry EKG Findings - EKG Comments: EKG Findings:: EKG shows normal sinus rhythm, ventricular rate 80, MS interval 174, QRS duration 88, QTC 472, there is ST segment depression in the lateral precordium V4 V5 and V6, no ST segment elevation. These findings are new compared to EKG in July 2017. Medical Decision Making - Medical Decision Making 72-year-old female presenting with typical chest pain. Patient had recent coronary stenting in April 2017. Pain is similar to her pain at that time. EKG shows nonspecific ST segment abnormality with ST segment depression in the lateral precordium. Chest x-ray shows no acute findings, hemoglobin stable 13.5, normal white blood cell count, normal electrolytes. Initial troponin is negative, BNP is normal. Given EKG changes and typical pain. Patient is started on heparin. She refuses aspirin and nitroglycerin. She will be transferred to [facility] in [place] where her waterway traffic checker is located. Accepting physician Dr. Reid - Lab Data Result diagrams: 10/13/17 19:47 10/13/17 19:47 Lab Results 10/13/17 10/13/17 10/13/17 Range/Units 19:47 19:47 19:47 WBC 6.8 (3.8-10.6) k/uL RBC 4.43 (3.80-5.40) m/uL Hgb 13.5 (11.4-16.0) gm/dL Hct 41.7 (34.0-46.0) % MCV 94.3 (80.0-100.0) fL MCH 30.4 (25.0-35.0) pg MCHC 32.3 (31.0-37.0) g/dL RDW 14.5 (11.5-15.5) % Plt Count 211 (150-450) k/uL Neutrophils % 58 % Lymphocytes % 28 % Monocytes % 8 % Eosinophils % 2 % Basophils % 0 % Neutrophils # 3.9 (1.3-7.7) k/uL Lymphocytes # 1.9 (1.0-4.8) k/uL Monocytes # 0.6 (0-1.0) k/uL Eosinophils # 0.1 (0-0.7) k/uL Basophils # 0.0 (0-0.2) k/uL PT (9.0-12.0) sec INR (<1.2) APTT (22.0-30.0) sec Sodium 142 (137-145) mmol/L Potassium 4.7 (3.5-5.1) mmol/L Chloride 104 (98-107) mmol/L Carbon Dioxide 24 (22-30) mmol/L Anion Gap 14 mmol/L BUN 27 H (7-17) mg/dL Creatinine 0.77 (0.52-1.04) mg/dL Est GFR (CKD-EPI)AfAm >90 (>60 ml/min/1.73 sqM) Est GFR (CKD-EPI)NonAf 78 (>60 ml/min/1.73 sqM) Glucose 114 H (74-99) mg/dL Calcium 9.6 (8.4-10.2) mg/dL Magnesium 2.2 (1.6-2.3) mg/dL Total Bilirubin 0.5 (0.2-1.3) mg/dL AST 25 (14-36) U/L ALT 22 (9-52) U/L Alkaline Phosphatase 105 (38-126) U/L Total Creatine Kinase 54 (30-135) U/L CK-MB (CK-2) 0.5 (0.0-2.4) ng/mL CK-MB (CK-2) Rel Index 0.9 Troponin I <0.012 (0.000-0.034) ng/mL NT-Pro-B Natriuret Pep pg/mL Total Protein 8.1 (6.3-8.2) g/dL Albumin 4.7 (3.5-5.0) g/dL Lipase 130 (23-300) U/L 10/13/17 10/13/17 Range/Units 19:47 19:47 WBC (3.8-10.6) k/uL RBC (3.80-5.40) m/uL Hgb (11.4-16.0) gm/dL Hct (34.0-46.0) % MCV (80.0-100.0) fL MCH (25.0-35.0) pg MCHC (31.0-37.0) g/dL RDW (11.5-15.5) % Plt Count (150-450) k/uL Neutrophils % % Lymphocytes % % Monocytes % % Eosinophils % % Basophils % % Neutrophils # (1.3-7.7) k/uL Lymphocytes # (1.0-4.8) k/uL Monocytes # (0-1.0) k/uL Eosinophils # (0-0.7) k/uL Basophils # (0-0.2) k/uL PT 10.5 (9.0-12.0) sec INR 1.1 (<1.2) APTT 23.9 (22.0-30.0) sec Sodium (137-145) mmol/L Potassium (3.5-5.1) mmol/L Chloride (98-107) mmol/L Carbon Dioxide (22-30) mmol/L Anion Gap mmol/L BUN (7-17) mg/dL Creatinine (0.52-1.04) mg/dL Est GFR (CKD-EPI)AfAm (>60 ml/min/1.73 sqM) Est GFR (CKD-EPI)NonAf (>60 ml/min/1.73 sqM) Glucose (74-99) mg/dL Calcium (8.4-10.2) mg/dL Magnesium (1.6-2.3) mg/dL Total Bilirubin (0.2-1.3) mg/dL AST (14-36) U/L ALT (9-52) U/L Alkaline Phosphatase (38-126) U/L Total Creatine Kinase (30-135) U/L CK-MB (CK-2) (0.0-2.4) ng/mL CK-MB (CK-2) Rel Index Troponin I (0.000-0.034) ng/mL NT-Pro-B Natriuret Pep 290 pg/mL Total Protein (6.3-8.2) g/dL Albumin (3.5-5.0) g/dL Lipase (23-300) U/L Critical Care Time Critical Care Time: Yes Total Critical Care Time: 35 Disposition Clinical Impression: Unstable angina pectoris Disposition: OTHER INSTITUTION NOT DEFINED Condition: Stable Referrals: Hakeem Torres DO [Primary Care Provider] - 1-2 days Time of Disposition: 21:22 - Out of Hospital Transfer - Req. Specs Out of Hospital Transfer - Requested Specifics: Other Emergency Center ( Transfer to [facility])
--- NOTE | 2017-10-13 20:09 | XR ---
EXAMINATION TYPE: XR chest 2V DATE OF EXAM: 10/13/2017 COMPARISON: 05/09/2017 HISTORY: Palpitations and chest pain TECHNIQUE: Frontal and lateral views of the chest are obtained. FINDINGS: Heart is normal. Thoracic aorta is atheromatous. Lungs are clear of infiltrate. There is n o heart failure. There is no pleural effusion. Bony thorax is intact. There are chest leads. IMPRESSION: No active cardiopulmonary disease. No change.
[2017-10-13 20:28] LABS: Basophils % (A) 0 %; Eosinophils # (A) 0.1 k/uL (0-0.7); Eosinophils % (A) 2 %; HCT 41.7 % (34.0-46.0); HGB 13.5 gm/dL (11.4-16.0); Lymphocytes # (A) 1.9 k/uL (1.0-4.8); Lymphocytes % (A) 28 %; MCH 30.4 pg (25.0-35.0); MCHC 32.3 g/dL (31.0-37.0); MCV 94.3 fL (80.0-100.0); Mean Platelet Volume 7.9; Monocytes # (A) 0.6 k/uL (0-1.0); Monocytes % (A) 8 %; Neutrophils # (A) 3.9 k/uL (1.3-7.7); Neutrophils % (A) 58 %; Platelet Count 211 k/uL (150-450); RBC 4.43 m/uL (3.80-5.40); RDW 14.5 % (11.5-15.5); WBC 6.8 k/uL (3.8-10.6)
[2017-10-13 20:37] LABS: INR 1.1 (<1.2); Partial Thromboplastin Time 23.9 sec (22.0-30.0); Prothrombin Time 10.5 sec (9.0-12.0)
[2017-10-13 20:50] LABS: ALT 22 U/L (9-52); AST 25 U/L (14-36); Albumin 4.7 g/dL (3.5-5.0); Alkaline Phosphatase 105 U/L (38-126); Anion Gap 14 mmol/L; Blood Urea Nitrogen 27 mg/dL (7-17); Calcium 9.6 mg/dL (8.4-10.2); Carbon Dioxide 24 mmol/L (22-30); Chloride 104 mmol/L (98-107); Glucose 114 mg/dL (74-99); Lipase 130 U/L (23-300); Magnesium 2.2 mg/dL (1.6-2.3); Potassium 4.7 mmol/L (3.5-5.1); Sodium 142 mmol/L (137-145); Total Bilirubin 0.5 mg/dL (0.2-1.3); Total Protein 8.1 g/dL (6.3-8.2)
[2017-10-13] MEDS ORDERED: ASPIRIN 325 MG TAB PO STA (20:50)
[2017-10-13] MEDS ORDERED: NITROGLYCERIN SL TABS 0.4 MG TAB SUBLINGUAL STA (20:50)
[2017-10-13 20:54] LABS: Creatine Kinase 54 U/L (30-135)
[2017-10-13 21:08] LABS: Creatine Kinase MB 0.5 ng/mL (0.0-2.4); Troponin I <0.012 ng/mL (0.000-0.034)
[2017-10-13] MEDS ORDERED: HEPARIN SODIUM,PORCINE 5,000 UNIT/ML 1 ML VIAL IV PRN (21:16)
[2017-10-13] MEDS ORDERED: HEPARIN SODIUM,PORCINE 5,000 UNIT/ML 1 ML VIAL IV ONE (21:16)
[2017-10-13] MEDS ORDERED: HEPARIN SOD,PORK IN 0.45% NACL 25,000 UNIT in 0.45% NACL 1 500ML.BAG IV SCH (21:30)
[2017-10-13 21:39] VITALS: BP 136/67; PULSE 85; TEMP 98
== END 2017-10-13 22:29 | disposition other institution (70) ==
LOC: EC 19:14
DX: I20.0 Unstable angina (principal); K21.9 Gastro-esophageal reflux disease without esophagitis; E78.5 Hyperlipidemia, unspecified; I10 Essential (primary) hypertension; I25.2 Old myocardial infarction; Z86.711 Personal history of pulmonary embolism; Z95.5 Presence of coronary angioplasty implant and graft; Z87.891 Personal history of nicotine dependence; Z79.899 Other long term (current) drug therapy; Z88.0 Allergy status to penicillin; Z88.1 Allergy status to other antibiotic agents; Z88.2 Allergy status to sulfonamides; Z88.4 Allergy status to anesthetic agent; Z88.5 Allergy status to narcotic agent; Z88.6 Allergy status to analgesic agent; Z88.7 Allergy status to serum and vaccine; Z88.8 Allergy status to other drugs, medicaments and biological substances; Z91.013 Allergy to seafood; Z91.041 Radiographic dye allergy status; Z91.048 Other nonmedicinal substance allergy status
CPT/HCPCS: 36415; 93005; 83880; 80053; 82550; 82553; 83690; 83735; 84484; 85025; 85610; 85730; 71046; 99291; 96365; 96376; J1644 ×2

== ENCOUNTER → 2018-03-01 | Outpatient (CLI) | payer MEDICARE, BC ==
--- NOTE | 2018-03-01 11:32 | US ---
EXAMINATION TYPE: US kidneys/renal and bladder DATE OF EXAM: 03/01/2018 COMPARISON: US, CT CLINICAL HISTORY: N20.0 kidney stones. Pt states recent kidney stone with stent procedure EXAM MEASUREMENTS: Right Kidney: 10.9 x 5.5 x 6.0 cm Left Kidney: 12.1 x 6.1 x 5.6 cm Right Kidney: Possible parapelvic cysts, largest= 1.7 x 1.4 x 0.7 cm Left Kidney: Possible multiple parapelvic cysts vs. dilated calyces Bladder: wnl Bilateral Jets seen: Yes There is no evidence for hydronephrosis at this point in time. No nephrolithiasis is seen. No kash s are identified. The urinary bladder is anechoic. Bilateral ureteral jets are seen. IMPRESSION: 1. I cannot exclude left-sided hydronephrosis. Consider CT correlation. 2. Parapelvic cysts also suspected bilaterally.
== END | disposition home or self-care (01) ==
LOC: RADUSWWP 10:51
PROVIDERS: ATTEND Surgery
DX: N20.0 Calculus of kidney (principal)
CPT/HCPCS: 76770

== ENCOUNTER 2018-04-08 18:33 | Emergency (ER) | payer MEDICARE, BC ==
[2018-04-08 19:10] VITALS: PULSE 69
--- NOTE | 2018-04-08 19:33 | ED ---
General Adult HPI <Issac Durbin - Last Filed: 04/09/18 02:26> - General Source: patient Mode of arrival: wheelchair Limitations: no limitations <Gray Perales - Last Filed: 04/09/18 21:39> - General Chief complaint: Chest Pain Stated complaint: CHest Pain, SOB - History of Present Illness Initial comments: Dictation was produced using [employer] dictation software. please excuse any grammatical, word or spelling errors. Chief Complaint: 72-year-old female past medical history of myocardial infarction,, GERD, dyslipidemia, pulmonary embolus presents with shortness breath and chest pressure. History of Present Illness: Patient is a 72-year-old female with multiple cardiac comorbidities presents with chest pressure. She states there is mild association of shortness of breath. Patient has a history of pulmonary embolus, severe aortic stenosis. There is plans to do aortic valve repair. Her transition teacher is based out of [place]. Patient states his chest pressure located to his left anterior chest. Denies any radiation to the neck or shoulders. No associated diaphoresis. Patient states she had chest pain with a previous heart attack however today her symptoms of remind her of that instance. Patient was recently started on azithromycin for inner ear pressure by her primary care physician. The ROS documented in this emergency department record has been reviewed and confirmed by me. Those systems with pertinent positive or negative responses have been documented in the HPI. All other systems are other negative and/or noncontributory. (Gary Perales) - Related Data Home Medications Medication Instructions Recorded Confirmed Atenolol [Tenormin] 25 mg PO BID@03/03/14 04/08/18 Colesevelam [Welchol] 1,250 mg PO TID 03/03/14 04/08/18 amLODIPine BESYLATE [Norvasc] 5 mg PO BID 03/03/14 04/08/18 Amiodarone [Cordarone] 200 mg PO DAILY 05/19/17 04/08/18 Atorvastatin [Lipitor] 5 mg PO DAILY 05/19/17 04/08/18 Cetirizine HCl [Zyrtec] 5 mg PO BID 05/19/17 04/08/18 Calcium Gluc 500mg/Mag/Vit D 1 tab PO DAILY@1200 10/13/17 04/08/18 Azithromycin [Zithromax] See Taper PO DIRECTED 04/08/18 04/08/18 Furosemide [Lasix] 40 mg PO DAILY 04/08/18 04/08/18 Potassium Chloride ER [K-Dur 10] 15 meq PO DAILY 04/08/18 04/08/18 Allergies Allergy/AdvReac Type Severity Reaction Status Date / Time aspirin Allergy Unknown Verified 10/13/17 19:54 butorphanol tartrate Allergy Unknown Verified 10/13/17 19:54 [From Stadol] caffeine Allergy Unknown Verified 10/13/17 19:54 cefaclor [From Ceclor] Allergy Unknown Verified 10/13/17 19:54 cefpodoxime proxetil Allergy Unknown Verified 10/13/17 19:54 [From Vantin] cefuroxime axetil Allergy Unknown Verified 10/13/17 19:54 [From Ceftin] ciprofloxacin [From Cipro] Allergy Unknown Verified 10/13/17 19:54 ciprofloxacin HCl Allergy Unknown Verified 10/13/17 19:54 [From Cipro] doxepin Allergy Unknown Verified 10/13/17 19:54 Iodinated Contrast- Oral and Allergy Unknown Verified 10/13/17 19:54 IV Dye [Iodinated Contrast Media - IV Dye] iodine Allergy Unknown Verified 10/13/17 19:54 ketoprofen [From Oruvail] Allergy Unknown Verified 10/13/17 19:54 lidocaine Allergy Unknown Verified 10/13/17 19:54 [From Terramycin (with lidocaine)] loratadine [From Claritin] Allergy Unknown Verified 10/13/17 19:54 methylprednisolone sodium Allergy Unknown Verified 10/13/17 19:54 succinate [From Solu-Medrol] metronidazole [From Flagyl] Allergy Unknown Verified 10/13/17 19:54 ofloxacin [From Floxin] Allergy Unknown Verified 10/13/17 19:54 oxycodone HCl [From Percocet] Allergy Unknown Verified 10/13/17 19:54 oxytetracycline Allergy Unknown Verified 10/13/17 19:54 [From Terramycin (with lidocaine)] penicillin V potassium Allergy Unknown Verified 10/13/17 19:54 [From Pen-Vee K] pitavastatin calcium Allergy Unknown Verified 10/13/17 19:54 [From Livalo] propoxyphene napsylate Allergy Unknown Verified 10/13/17 19:54 [From Darvocet-N] quinapril HCl [From Accupril] Allergy Unknown Verified 10/13/17 19:54 shellfish derived Allergy Unknown Verified 10/13/17 19:54 solifenacin succinate Allergy Unknown Verified 10/13/17 19:54 [From Vesicare] Sulfa (Sulfonamide Allergy Unknown Verified 10/13/17 19:54 Antibiotics) Tetanus Vaccines and Toxoid Allergy Unknown Verified 10/13/17 19:54 [Tetanus Vaccines & Toxoid] nylon Allergy Unknown Uncoded 10/13/17 19:24 rheomacrodex Allergy Unknown Uncoded 10/13/17 19:24 trianlin Allergy Unknown Uncoded 10/13/17 19:24 Review of Systems ROS Other: All systems not noted in ROS Statement are negative. <Issac Durbin - Last Filed: 04/09/18 02:26> ROS Other: All systems not noted in ROS Statement are negative. <Gary Perales - Last Filed: 04/09/18 21:39> ROS Statement: Those systems with pertinent positive or pertinent negative responses have been documented in the HPI. Past Medical History Past Medical History: GERD/Reflux, Hyperlipidemia, Hypertension, Myocardial Infarction (OR), Pulmonary Embolus (PE), Rheumatoid Arthritis (RA) Additional Past Medical History / Comment(s): hypoglycemia, reynauds syndrome, ulcers, hiatal hernia, bells palsy History of Any Multi-Drug Resistant Organisms: None Reported Past Surgical History: Appendectomy, Heart Catheterization With Stent, Orthopedic Surgery Additional Past Surgical History / Comment(s): carpal tunnel sx, hemmorhoid sx, miscarriage, left carotid, right radial heart cath with 2 stents 05/09/17 Past Psychological History: No Psychological Hx Reported Smoking Status: Former smoker Past Alcohol Use History: None Reported Past Drug Use History: None Reported <Gary Perales - Last Filed: 04/09/18 21:39> General Exam <Issac Durbin - Last Filed: 04/09/18 02:26> Limitations: no limitations <Gary Perales - Last Filed: 04/09/18 21:39> - General Exam Comments Initial Comments: PHYSICAL EXAM: General Impression: Alert and oriented x3, not in acute distress HEENT: Normocephalic atraumatic, extra-ocular movements intact, pupils equal and reactive to light bilaterally, mucous membranes moist, TMs clear without any posterior fusion Cardiovascular: Heart regular rate and rhythm, systolic ejection murmur at the aortic location Chest: Lungs clear to auscultation bilaterally, no rhonchi, no wheeze, no rales Abdomen: Bowel sounds present, abdomen soft, non-tender, non-distended, no organomegaly Musculoskeletal: Pulses present and equal in all extremities, no peripheral edema Motor: Power 5/5 bilaterally, no focal deficits noted Neurological: CN II-XII grossly intact, no focal motor or sensory deficits noted Skin: Intact with no visualized rashes Psych: Normal affect and mood (Gary Perales) Course <Issac Durbin - Last Filed: 04/09/18 02:26> <Gary Perales - Last Filed: 04/09/18 21:39> Vital Signs 04/08/18 04/09/18 19:03 02:44 Temperature 98.0 F Pulse Rate 69 69 Respiratory 18 16 Rate Blood Pressure 138/60 145/68 O2 Sat by Pulse 99 98 Oximetry - Reevaluation(s) Reevaluation #1: 04/09/18 02:26 We have attempted to reach the patient's transition teacher paging a number of times. We have also checked a second troponin which is also negative. The patient's chest pressure has subsided. I did recommend patient be admitted for further telemetry monitoring and another set of cardiac enzymes with patient is refusing at this point stating she would like to go home and attempt to reach her transition teacher the morning. She will return if the chest pain increases again (Issac Durbin) Medical Decision Making - Lab Data Result diagrams: 04/08/18 20:12 04/08/18 20:12 <Issac Durbin - Last Filed: 04/09/18 02:26> - Lab Data Result diagrams: 04/08/18 20:12 04/08/18 20:12 <Gary Perales - Last Filed: 04/09/18 21:39> - Medical Decision Making I receive this patient has a sign out. Pending the results of the ventilation perfusion scan. The scan is read as low probability. Discussed results with patient and they would like her personal transition teacher Dr. Thomas ([phone]) informed. (Issac Durbin) ED course: 72-year-old female presents with chest pressure. Patient has extensive cardiac comorbidities. Patient is well-appearing. Physical examination is otherwise benign. Vital signs upon arrival are within acceptable limits.Clinical presentation is suspicion for acute coronary syndrome versus pulmonary embolus. Laboratory evaluation obtained. CBC unremarkable. Coag panel is unremarkable. Patient has d-dimer of 0.62. Metabolic panel shows findings within acceptable limits. Cardiac enzymes are negative. Abdominal labs are negative. X-ray shows no acute processes. Patient unwilling to obtained CT angios for mildly elevated d-dimer. VQ scan was obtained. Patient is signed out to oncoming physician for follow-up of VQ scan and final disposition. EKG interpretation: Ventricular rate 72, normal sinus rhythm, DC interval 202, QRS 92, QTC 486. No DC prolongation, no QTC prolongation, no ST or T-wave changes noted. EKG compared to 10/13/2017 showing no changes. Overall, this EKG is unremarkable (Gary Perales) - Lab Data Lab Results 04/08/18 04/08/18 04/08/18 Range/Units 20:12 20:12 20:12 WBC 5.3 (3.8-10.6) k/uL RBC 4.29 (3.80-5.40) m/uL Hgb 13.6 (11.4-16.0) gm/dL Hct 42.0 (34.0-46.0) % MCV 97.9 (80.0-100.0) fL MCH 31.6 (25.0-35.0) pg MCHC 32.3 (31.0-37.0) g/dL RDW 13.8 (11.5-15.5) % Plt Count 192 (150-450) k/uL Neutrophils % 61 % Lymphocytes % 23 % Monocytes % 9 % Eosinophils % 2 % Basophils % 1 % Neutrophils # 3.2 (1.3-7.7) k/uL Lymphocytes # 1.2 (1.0-4.8) k/uL Monocytes # 0.5 (0-1.0) k/uL Eosinophils # 0.1 (0-0.7) k/uL Basophils # 0.0 (0-0.2) k/uL PT (9.0-12.0) sec INR (<1.2) APTT (22.0-30.0) sec D-Dimer (<0.60) mg/L FEU Sodium 141 (137-145) mmol/L Potassium 4.8 (3.5-5.1) mmol/L Chloride 109 H (98-107) mmol/L Carbon Dioxide 24 (22-30) mmol/L Anion Gap 8 mmol/L BUN 31 H (7-17) mg/dL Creatinine 0.96 (0.52-1.04) mg/dL Est GFR (CKD-EPI)AfAm 69 (>60 ml/min/1.73 sqM) Est GFR (CKD-EPI)NonAf 60 (>60 ml/min/1.73 sqM) Glucose 112 H (74-99) mg/dL Calcium 9.3 (8.4-10.2) mg/dL Magnesium 2.2 (1.6-2.3) mg/dL Total Bilirubin 0.4 (0.2-1.3) mg/dL AST 25 (14-36) U/L ALT 30 (9-52) U/L Alkaline Phosphatase 76 (38-126) U/L Total Creatine Kinase 54 (30-135) U/L CK-MB (CK-2) 0.5 (0.0-2.4) ng/mL CK-MB (CK-2) Rel Index 0.9 Troponin I <0.012 (0.000-0.034) ng/mL Total Protein 7.8 (6.3-8.2) g/dL Albumin 4.4 (3.5-5.0) g/dL Lipase 117 (23-300) U/L 04/08/18 04/09/18 Range/Units 20:12 01:23 WBC (3.8-10.6) k/uL RBC (3.80-5.40) m/uL Hgb (11.4-16.0) gm/dL Hct (34.0-46.0) % MCV (80.0-100.0) fL MCH (25.0-35.0) pg MCHC (31.0-37.0) g/dL RDW (11.5-15.5) % Plt Count (150-450) k/uL Neutrophils % % Lymphocytes % % Monocytes % % Eosinophils % % Basophils % % Neutrophils # (1.3-7.7) k/uL Lymphocytes # (1.0-4.8) k/uL Monocytes # (0-1.0) k/uL Eosinophils # (0-0.7) k/uL Basophils # (0-0.2) k/uL PT 10.0 (9.0-12.0) sec INR 1.0 (<1.2) APTT 22.9 (22.0-30.0) sec D-Dimer 0.62 H (<0.60) mg/L FEU Sodium (137-145) mmol/L Potassium (3.5-5.1) mmol/L Chloride (98-107) mmol/L Carbon Dioxide (22-30) mmol/L Anion Gap mmol/L BUN (7-17) mg/dL Creatinine (0.52-1.04) mg/dL Est GFR (CKD-EPI)AfAm (>60 ml/min/1.73 sqM) Est GFR (CKD-EPI)NonAf (>60 ml/min/1.73 sqM) Glucose (74-99) mg/dL Calcium (8.4-10.2) mg/dL Magnesium (1.6-2.3) mg/dL Total Bilirubin (0.2-1.3) mg/dL AST (14-36) U/L ALT (9-52) U/L Alkaline Phosphatase (38-126) U/L Total Creatine Kinase (30-135) U/L CK-MB (CK-2) (0.0-2.4) ng/mL CK-MB (CK-2) Rel Index Troponin I <0.012 (0.000-0.034) ng/mL Total Protein (6.3-8.2) g/dL Albumin (3.5-5.0) g/dL Lipase (23-300) U/L Disposition Is patient prescribed a controlled substance at d/c from ED?: No <Issac Durbin - Last Filed: 04/09/18 02:26> <Gary Perales - Last Filed: 04/09/18 21:39> Clinical Impression: Chest pain Disposition: HOME SELF-CARE Condition: Fair Instructions: Chest Pain (ED) Referrals: Hakeem Torres DO [Primary Care Provider] - 1-2 days
--- NOTE | 2018-04-08 19:48 | XR ---
EXAMINATION TYPE: XR chest 2V DATE OF EXAM: 04/08/2018 COMPARISON: 10/13/2017 HISTORY: Chest pain TECHNIQUE: Frontal and lateral views of the chest are obtained. FINDINGS: There is no heart failure nor confluent pneumonic infiltrate. Costophrenic angles are corrina r. Thoracic aorta is atheromatous. There are chest leads. There is some enlargement of the azygos lym ph node or azygous vein. IMPRESSION: Possible new azygos adenopathy compared to old exam. Normal heart.
[2018-04-08 20:21] LABS: Basophils % (A) 1 %; Eosinophils # (A) 0.1 k/uL (0-0.7); Eosinophils % (A) 2 %; HGB 13.6 gm/dL (11.4-16.0); Lymphocytes # (A) 1.2 k/uL (1.0-4.8); Lymphocytes % (A) 23 %; MCH 31.6 pg (25.0-35.0); MCHC 32.3 g/dL (31.0-37.0); MCV 97.9 fL (80.0-100.0); Monocytes # (A) 0.5 k/uL (0-1.0); Monocytes % (A) 9 %; Neutrophils # (A) 3.2 k/uL (1.3-7.7); Neutrophils % (A) 61 %; Platelet Count 192 k/uL (150-450); RBC 4.29 m/uL (3.80-5.40); RDW 13.8 % (11.5-15.5); WBC 5.3 k/uL (3.8-10.6)
[2018-04-08 20:31] LABS: Albumin 4.4 g/dL (3.5-5.0); Calcium 9.3 mg/dL (8.4-10.2); Magnesium 2.2 mg/dL (1.6-2.3); Potassium 4.8 mmol/L (3.5-5.1); Total Bilirubin 0.4 mg/dL (0.2-1.3); Total Protein 7.8 g/dL (6.3-8.2)
[2018-04-08 20:32] LABS: Partial Thromboplastin Time 22.9 sec (22.0-30.0)
[2018-04-08 20:40] LABS: D-Dimer 0.62 mg/L FEU (<0.60)
[2018-04-08 20:46] LABS: Creatine Kinase 54 U/L (30-135)
[2018-04-08] MEDS ORDERED: methylPREDNISolone SOD SUCCI 125 MG/2 ML VIAL IV STA (20:54)
[2018-04-08] MEDS ORDERED: FAMOTIDINE 20 MG/2 ML VIAL IV STA (20:54)
[2018-04-08] MEDS ORDERED: diphenhydrAMINE 50 MG/ML 1 ML VIAL IVP STA (20:55)
[2018-04-08 20:59] LABS: Creatine Kinase MB 0.5 ng/mL (0.0-2.4); Troponin I <0.012 ng/mL (0.000-0.034)
--- NOTE | 2018-04-08 23:48 | NM ---
EXAMINATION TYPE: NM pul vent and perfuse DATE OF EXAM: 04/08/2018 COMPARISON: NONE HISTORY: TECHNIQUE: Utilizing inhalation of 68.7 mCi Tc 99m DTPA aerosol and intravenous injection of 5.07 mC i of Tc 99m MAA, ventilation and perfusion images are acquired post injection in multiple projections . FINDINGS: There is fairly uniform distribution on the ventilation images. Perfusion images are within normal li mits. There is no mismatch. IMPRESSION: Negative exam. There is a very low probability of pulmonary embolism.
[2018-04-09 02:44] VITALS: BP 145/68; RESP 16; TEMP 98
== END 2018-04-09 02:45 | disposition home or self-care (01) ==
LOC: EC 18:33
DX: R07.89 Other chest pain (principal); R06.02 Shortness of breath; R79.1 Abnormal coagulation profile; E78.5 Hyperlipidemia, unspecified; I10 Essential (primary) hypertension; I25.2 Old myocardial infarction; M06.9 Rheumatoid arthritis, unspecified; Z86.711 Personal history of pulmonary embolism; Z87.891 Personal history of nicotine dependence; Z88.6 Allergy status to analgesic agent; Z88.8 Allergy status to other drugs, medicaments and biological substances; Z88.1 Allergy status to other antibiotic agents; Z91.041 Radiographic dye allergy status; Z91.018 Allergy to other foods; Z88.2 Allergy status to sulfonamides; Z91.013 Allergy to seafood; Z88.0 Allergy status to penicillin; Z88.5 Allergy status to narcotic agent; Z88.7 Allergy status to serum and vaccine; Z95.5 Presence of coronary angioplasty implant and graft; Z53.29 Procedure and treatment not carried out because of patient's decision for other reasons
CPT/HCPCS: 99285 ×2; 36415 ×2; 93005; 85379; 80053; 82550; 82553; 83690; 83735; 84484 ×2; 85025; 85610; 85730; 71046; 78582; A9540; A9567

== ENCOUNTER → 2018-06-13 | Outpatient (CLI) | payer MEDICARE, BC ==
--- NOTE | 2018-06-14 13:17 | ECHOF ---
Referral Reason:I73.; K21.9; I25.10; I35.0 MEASUREMENTS -------- HEIGHT: 162.6 cm WEIGHT: 111.1 kg BP: 137/59 RVIDd: 2.9 cm (< 3.3) IVSd: 1.1 cm (0.6 - 1.1) LVIDd: 4.4 cm (3.9 - 5.3) LVPWd: 1.2 cm (0.6 - 1.1) IVSs: 1.6 cm LVIDs: 3.3 cm LVPWs: 1.7 cm LA Diam: 3.7 cm (2.7 - 3.8) LAESV Index (A-L): 35.19 ml/m Ao Diam: 2.8 cm (2.0 - 3.7) AV Cusp: 1.2 cm (1.5 - 2.6) MV EXCURSION: 16.594 mm (> 18.000) MV EF SLOPE: 127 mm/s (70 - 150) EPSS: 0.3 cm MV E Rajendra: 0.90 m/s MV DecT: 159 ms MV A Rajendra: 0.74 m/s MV E/A Ratio: 1.22 AV maxP.19 mmHg AV meanP.91 mmHg AR PHT: 502 ms RAP: 5.00 mmHg RVSP: 38.09 mmHg FINDINGS -------- Sinus rhythm. This was a technically good study. The left ventricular size is normal. There is borderline concentric left ventricular hypertrophy. Overall left ventricular systolic function is normal with, an EF between 55 - 60 %. The right ventricle is normal in size. LA is moderately dilated 34-39 ml/m2 The right atrium is normal in size. There is moderate aortic valve sclerosis. There is [id number] aortic regurgitation. There i s severe aortic stenosis present. Peak/mean gradient across the Aortic Valve is 71.19mmHg / 41.91mm Hg. AOV is possible Bicuspid. Mild mitral annular calcification present. Mild mitral regurgitation is present. Mild tricuspid regurgitation present. There is mild pulmonary hypertension. The right ventricular systolic pressure, as measured by Doppler, is 38.09mmHg. There is no pulmonic regurgitation present. The aortic root size is normal. Normal inferior vena cava with normal inspiratory collapse consistent with estimated right atrial pre ssure of 5 mmHg. There is no pericardial effusion. CONCLUSIONS -------- 1. Sinus rhythm. 2. This was a technically good study. 3. The left ventricular size is normal. 4. There is borderline concentric left ventricular hypertrophy. 5. Overall left ventricular systolic function is normal with, an EF between 55 - 60 %. 6. LA is moderately dilated 34-39 ml/m2 7. There is moderate aortic valve sclerosis. 8. There is eozk-fk-[id number] aortic regurgitation. 9. There is severe aortic stenosis present. 10. Peak/mean gradient across the Aortic Valve is 71.19mmHg / 41.91mmHg. 11. AOV is possible Bicuspid. 12. Mild mitral annular calcification present. 13. Mild mitral regurgitation is present. 14. Mild tricuspid regurgitation present. 15. There is mild pulmonary hypertension. 16. There is no pulmonic regurgitation present. 17. The aortic root size is normal. 18. Normal inferior vena cava with normal inspiratory collapse consistent with estimated right atrial pressure of 5 mmHg. 19. There is no pericardial effusion. UNDERWATER TRAPPER: Jemma Melendez RDCS
== END | disposition home or self-care (01) ==
LOC: RADECHMAIN 11:23
PROVIDERS: ATTEND Internal Medicine
DX: I35.0 Nonrheumatic aortic (valve) stenosis (principal); I27.20 Pulmonary hypertension, unspecified; I51.7 Cardiomegaly; I73.00 Raynaud's syndrome without gangrene; K21.9 Gastro-esophageal reflux disease without esophagitis; I25.10 Atherosclerotic heart disease of native coronary artery without angina pectoris
CPT/HCPCS: 93306

== ENCOUNTER 2018-07-13 19:53 | Emergency (ER) | payer MEDICARE, BC ==
[2018-07-13 21:20] LABS: INR 0.9 (<1.2); Partial Thromboplastin Time 22.9 sec (22.0-30.0); Prothrombin Time 9.9 sec (9.0-12.0)
--- NOTE | 2018-07-13 21:21 | XR ---
EXAMINATION TYPE: XR chest 2V DATE OF EXAM: 07/13/2018 COMPARISON: 04/08/2018 HISTORY: Chest pain TECHNIQUE: Frontal and lateral views of the chest are obtained. FINDINGS: There is no heart failure nor confluent pneumonic infiltrate. Costophrenic angles are corrina r. There are chest leads. There is prominent azygos lymph node. There is mild coarsening of interstit ial markings. IMPRESSION: Large azygous lymph node. No change compared to last exam. No pulmonary consolidation or heart failure.
[2018-07-13 21:23] LABS: HCT 40.8 % (34.0-46.0); MCH 30.8 pg (25.0-35.0); MCHC 31.8 g/dL (31.0-37.0); MCV 97.1 fL (80.0-100.0); Mean Platelet Volume 7.2; Platelet Count 188 k/uL (150-450); RBC 4.21 m/uL (3.80-5.40); RDW 14.1 % (11.5-15.5); WBC 5.3 k/uL (3.8-10.6)
[2018-07-13 21:25] LABS: Albumin 4.3 g/dL (3.5-5.0); Calcium 9.3 mg/dL (8.4-10.2); Potassium 4.2 mmol/L (3.5-5.1); Total Bilirubin 0.4 mg/dL (0.2-1.3); Total Protein 7.8 g/dL (6.3-8.2)
[2018-07-13 21:29] LABS: Creatine Kinase 75 U/L (30-135)
[2018-07-13] MEDS ORDERED: FAMOTIDINE 20 MG/2 ML VIAL IV STA (21:36)
[2018-07-13] MEDS ORDERED: ACETAMINOPHEN TAB 325 MG TAB PO STA (21:39)
[2018-07-13 21:41] VITALS: RESP 18
[2018-07-13 21:41] LABS: Band Neutrophils % 3 %; Eosinophils # (M) 0.27 k/uL (0-0.7); Lymphocytes # (M) 0.85 k/uL (1.0-4.8); Monocytes # (M) 0.48 k/uL (0-1.0); Neutrophils % (M) 67 %; Nucleated Red Blood Cells 0 /100 WBC (0-0); Polychromasia Present; Total Cells Counted 100
[2018-07-13 21:42] LABS: Creatine Kinase MB 0.5 ng/mL (0.0-2.4); Troponin I <0.012 ng/mL (0.000-0.034)
--- NOTE | 2018-07-13 22:02 | ED ---
General Adult HPI - General Chief complaint: Chest Pain Stated complaint: Center of back pain. Hx of heart ttacks Time Seen by Provider: 07/13/18 20:51 Source: patient Mode of arrival: ambulatory Limitations: no limitations - History of Present Illness Initial comments: This a 73-year-old feel past medical history of significant cardiovascular disease including stent placement 2 years ago which has occluded patient on aspirin, aortic stenosis nonrheumatic, and history of pulmonary and wasn't presenting today for chief complaint of center of back pain, patient states that the pain radiates towards the arms bilaterally. Patient states that the pain began around noon, she states describes as a dull aching pain. Patient denies any numbness, dizziness, syncope, chest pain. She does admit to dyspnea however she states this is unchanged in characteristic since her initial [place]. Patient denies any worsening shortness of breath or dyspnea on exertion. Patient denies any lower extremity edema, calf pain, recent travel, history of cancer. Remainder of ROS negative, patient denies any recent fever, pain, abdominal pain, nausea or vomiting, dysuria or hematuria, constipation or diarrhea, headaches or visual changes, or any other complaints. Upon arrival patient does not appear to be in acute distress, vital signs within acceptable limits. Patient states has established cardiology care at [facility], where she sees Dr. Lynn. - Related Data Home Medications Medication Instructions Recorded Confirmed Atenolol [Tenormin] 25 mg PO BID 03/03/14 07/13/18 Colesevelam [Welchol] 1,250 mg PO TID@0800,1200,1600 03/03/14 07/13/18 amLODIPine BESYLATE [Norvasc] 5 mg PO DAILY@0930 03/03/14 07/13/18 Amiodarone [Cordarone] 200 mg PO DAILY 05/19/17 07/13/18 Atorvastatin [Lipitor] 5 mg PO HS 05/19/17 07/13/18 Calcium Gluc 500mg/Mag/Vit D 1 tab PO DAILY 10/13/17 07/13/18 Furosemide [Lasix] 40 mg PO DAILY 04/08/18 07/13/18 Potassium Chloride ER [K-Dur 10] 10 meq PO DAILY@0900 04/08/18 07/13/18 Aspirin EC [Ecotrin Low Dose] 81 mg PO DAILY@0930 07/13/18 07/13/18 Calcitonin Nasal [Fortical 1 spray NASAL DAILY 07/13/18 07/13/18 (Miacalcin)] Carboxymethyl/Gly/Poly80/Pf 1 dropper BOTH EYES QID PRN 07/13/18 07/13/18 [Refresh Optive Stanley-3 Drops] Cetirizine HCl [Zyrtec] 2.5 mg PO BID 07/13/18 07/13/18 Cholecalciferol [Vitamin D3] 200 unit PO DAILY@1200 07/13/18 07/13/18 Cholecalciferol [Vitamin D3] 400 unit PO DAILY@1600 07/13/18 07/13/18 EPINEPHrine [Epipen 2-Sam] 0.3 mg IM ONCE PRN 07/13/18 07/13/18 Meclizine [Antivert] 6.25 mg PO Q6H PRN 07/13/18 07/13/18 Olmesartan [Benicar] 10 mg PO DAILY 07/13/18 07/13/18 Potassium Chloride ER [K-Dur 10] 10 meq PO DAILY@1200 07/13/18 07/13/18 RABEprazole SODIUM [Aciphex] 20 mg PO DAILY@1600 07/13/18 07/13/18 Triamcinolone Acetonide [Nasacort] 1 spray EA NOSTRIL DAILY 07/13/18 07/13/18 amLODIPine [Norvasc] 2.5 mg PO HS@2130 07/13/18 07/13/18 Allergies Allergy/AdvReac Type Severity Reaction Status Date / Time aspirin Allergy Unknown Verified 07/13/18 21:42 butorphanol tartrate Allergy Unknown Verified 07/13/18 21:42 [From Stadol] caffeine Allergy Unknown Verified 07/13/18 21:42 cefaclor [From Ceclor] Allergy Unknown Verified 07/13/18 21:42 cefpodoxime proxetil Allergy Unknown Verified 07/13/18 21:42 [From Vantin] cefuroxime axetil Allergy Unknown Verified 07/13/18 21:42 [From Ceftin] ciprofloxacin [From Cipro] Allergy Unknown Verified 07/13/18 21:42 ciprofloxacin HCl Allergy Unknown Verified 07/13/18 21:42 [From Cipro] doxepin Allergy Unknown Verified 07/13/18 21:42 Iodinated Contrast- Oral and Allergy Unknown Verified 07/13/18 21:42 IV Dye [Iodinated Contrast Media - IV Dye] iodine Allergy Unknown Verified 07/13/18 21:42 ketoprofen [From Oruvail] Allergy Unknown Verified 07/13/18 21:42 lidocaine Allergy Unknown Verified 07/13/18 21:42 [From Terramycin (with lidocaine)] loratadine [From Claritin] Allergy Unknown Verified 07/13/18 21:42 methylprednisolone sodium Allergy Unknown Verified 07/13/18 21:42 succinate [From Solu-Medrol] metronidazole [From Flagyl] Allergy Unknown Verified 07/13/18 21:42 ofloxacin [From Floxin] Allergy Unknown Verified 07/13/18 21:42 oxycodone HCl [From Percocet] Allergy Unknown Verified 07/13/18 21:42 oxytetracycline Allergy Unknown Verified 07/13/18 21:42 [From Terramycin (with lidocaine)] penicillin V potassium Allergy Unknown Verified 07/13/18 21:42 [From Pen-Vee K] pitavastatin calcium Allergy Unknown Verified 07/13/18 21:42 [From Livalo] propoxyphene napsylate Allergy Unknown Verified 07/13/18 21:42 [From Darvocet-N] quinapril HCl [From Accupril] Allergy Unknown Verified 07/13/18 21:42 shellfish derived Allergy Unknown Verified 07/13/18 21:42 solifenacin succinate Allergy Unknown Verified 07/13/18 21:42 [From Vesicare] Sulfa (Sulfonamide Allergy Unknown Verified 07/13/18 21:42 Antibiotics) Tetanus Vaccines and Toxoid Allergy Unknown Verified 07/13/18 21:42 [Tetanus Vaccines & Toxoid] nylon Allergy Unknown Uncoded 10/13/17 19:24 rheomacrodex Allergy Unknown Uncoded 10/13/17 19:24 trianlin Allergy Unknown Uncoded 10/13/17 19:24 Review of Systems ROS Statement: Those systems with pertinent positive or pertinent negative responses have been documented in the HPI. ROS Other: All systems not noted in ROS Statement are negative. Constitutional: Denies: fever, chills, night sweats ENT: Denies: ear pain, throat pain Respiratory: Reports: cough (recent cough, none currently), dyspnea (chronic since previous [place]). Denies: wheezes, hemoptysis, stridor Cardiovascular: Reports: dyspnea on exertion. Denies: chest pain, palpitations , edema Gastrointestinal: Denies: abdominal pain, nausea, diarrhea, constipation, hematemesis Genitourinary: Denies: urgency, dysuria, frequency, hematuria Musculoskeletal: Reports: back pain (mid back) Skin: Denies: rash, lesions Neurological: Denies: headache, weakness, numbness, paresthesias, confusion Past Medical History Past Medical History: GERD/Reflux, Hyperlipidemia, Hypertension, Myocardial Infarction ([place]), Pulmonary Embolus ([place]), Rheumatoid Arthritis (RA) Additional Past Medical History / Comment(s): hypoglycemia, reynauds syndrome, ulcers, hiatal hernia, bells palsy History of Any Multi-Drug Resistant Organisms: None Reported Past Surgical History: Appendectomy, Heart Catheterization With Stent, Orthopedic Surgery Additional Past Surgical History / Comment(s): carpal tunnel sx, hemmorhoid sx, miscarriage, left carotid, right radial heart cath with 2 stents 05/09/17 Past Psychological History: No Psychological Hx Reported Smoking Status: Former smoker Past Alcohol Use History: None Reported Past Drug Use History: None Reported General Exam - General Exam Comments Initial Comments: General: The patient is awake and alert, in no distress. (-) Levign sign Eye: +3 mm pupils are equal, round and reactive to light, extra-ocular movements are intact. No nystagmus. There is normal conjunctiva bilaterally. No signs of icterus. Ears, nose, mouth and throat: There are moist mucous membranes and no oral lesions. Neck: The neck is supple, there is no tenderness or JVD. Cardiovascular: There is a regular rate and rhythm. No rub or gallop is appreciated. Holosystolic murmur audible on examination Respiratory: Lungs are clear to auscultation, respirations are non-labored, breath sounds are equal. No wheezes, stridor, rales, or rhonchi. Gastrointestinal: Obese, Soft, non-distended, non-tender abdomen without masses or organomegaly noted. There is no rebound or guarding present. Bowel sounds are unremarkable.No pulsatile massses. Musculoskeletal: No pain to palpation of the thoracic or lumbar spine Normal ROM , no tenderness. Strength 5/5. Sensation intact. Radial pulses equal bilaterally 2+. Neurological: A&O x 3. CN II-XII intact, There are no obvious motor or sensory deficits. Coordination appears grossly intact. Speech is normal. Skin: Skin is warm and dry and no rashes or lesions are noted. No pitting lower extremity edema. No noted diaphoresis Psychiatric: Cooperative, appropriate mood & affect, normal judgment. Limitations: no limitations Course Vital Signs 07/13/18 07/13/18 20:07 21:40 Temperature 98.0 F Pulse Rate 77 75 Respiratory 16 18 Rate Blood Pressure 134/59 151/67 O2 Sat by Pulse 98 98 Oximetry EKG Findings - EKG Comments: EKG Findings:: Ventricular rate 75 bpm, MI interval 194 ms, QRS duration 92ms, QT/QTC 446/498 ms, this is a normal sinus rhythm, there is prolonged patient of the QT, no specific ST or T-wave abnormalities. Medical Decision Making - Medical Decision Making 73yo female presenting chief complaint back pain with significant cardiac history concerning for acute cardiac syndrome, primary embolism or aortic dissection. EKG revealed QT prolongation however patient is on multiple medications including amiodarone which prolonged QT. No ST elevation or depression at this time. Initial troponin negative. X-ray revealed no evidence of heart failure or consolidation. Pt states extensive ALLERGIES, she states she is not the comfortable with care if contrast dye that will be administered for needed evaluation. She is requesting transfer to [facility] for continuity of care and further evaluation. I discussed at length with transfer which include worsening of symptoms and even . Patient does appear stable at this time, vital signs the next limits. No signs of distress. Patient was given atenolol for pain management. At 10:00 PM I spoke with Dr. Carlos jimenez, emergency center he accepted admission patient be transferred via EMS with fluids handing. I discussed case with Dr. Durbin prior to transfer of patient. - Lab Data Result diagrams: 07/13/18 20:30 07/13/18 20:30 Lab Results 07/13/18 07/13/18 07/13/18 Range/Units 20:30 20:30 20:30 WBC 5.3 (3.8-10.6) k/uL RBC 4.21 (3.80-5.40) m/uL Hgb 13.0 (11.4-16.0) gm/dL Hct 40.8 (34.0-46.0) % MCV 97.1 (80.0-100.0) fL MCH 30.8 (25.0-35.0) pg MCHC 31.8 (31.0-37.0) g/dL RDW 14.1 (11.5-15.5) % Plt Count 188 (150-450) k/uL Neutrophils % (Manual) 67 % Band Neutrophils % 3 % Lymphocytes % (Manual) 16 % Monocytes % (Manual) 9 % Eosinophils % (Manual) 5 % Neutrophils # (Manual) 3.70 (1.3-7.7) k/uL Lymphocytes # (Manual) 0.85 L (1.0-4.8) k/uL Monocytes # (Manual) 0.48 (0-1.0) k/uL Eosinophils # (Manual) 0.27 (0-0.7) k/uL Nucleated RBCs 0 (0-0) /100 WBC Polychromasia Present PT (9.0-12.0) sec INR (<1.2) APTT (22.0-30.0) sec Sodium 139 (137-145) mmol/L Potassium 4.2 (3.5-5.1) mmol/L Chloride 107 (98-107) mmol/L Carbon Dioxide 24 (22-30) mmol/L Anion Gap 8 mmol/L BUN 27 H (7-17) mg/dL Creatinine 0.98 (0.52-1.04) mg/dL Est GFR (CKD-EPI)AfAm 67 (>60 ml/min/1.73 sqM) Est GFR (CKD-EPI)NonAf 58 (>60 ml/min/1.73 sqM) Glucose 124 H (74-99) mg/dL Calcium 9.3 (8.4-10.2) mg/dL Magnesium 2.0 (1.6-2.3) mg/dL Total Bilirubin 0.4 (0.2-1.3) mg/dL AST 27 (14-36) U/L ALT 22 (9-52) U/L Alkaline Phosphatase 87 (38-126) U/L Total Creatine Kinase 75 (30-135) U/L CK-MB (CK-2) 0.5 (0.0-2.4) ng/mL CK-MB (CK-2) Rel Index 0.7 Troponin I <0.012 (0.000-0.034) ng/mL Total Protein 7.8 (6.3-8.2) g/dL Albumin 4.3 (3.5-5.0) g/dL 07/13/18 Range/Units 20:30 WBC (3.8-10.6) k/uL RBC (3.80-5.40) m/uL Hgb (11.4-16.0) gm/dL Hct (34.0-46.0) % MCV (80.0-100.0) fL MCH (25.0-35.0) pg MCHC (31.0-37.0) g/dL RDW (11.5-15.5) % Plt Count (150-450) k/uL Neutrophils % (Manual) % Band Neutrophils % % Lymphocytes % (Manual) % Monocytes % (Manual) % Eosinophils % (Manual) % Neutrophils # (Manual) (1.3-7.7) k/uL Lymphocytes # (Manual) (1.0-4.8) k/uL Monocytes # (Manual) (0-1.0) k/uL Eosinophils # (Manual) (0-0.7) k/uL Nucleated RBCs (0-0) /100 WBC Polychromasia PT 9.9 (9.0-12.0) sec INR 0.9 (<1.2) APTT 22.9 (22.0-30.0) sec Sodium (137-145) mmol/L Potassium (3.5-5.1) mmol/L Chloride (98-107) mmol/L Carbon Dioxide (22-30) mmol/L Anion Gap mmol/L BUN (7-17) mg/dL Creatinine (0.52-1.04) mg/dL Est GFR (CKD-EPI)AfAm (>60 ml/min/1.73 sqM) Est GFR (CKD-EPI)NonAf (>60 ml/min/1.73 sqM) Glucose (74-99) mg/dL Calcium (8.4-10.2) mg/dL Magnesium (1.6-2.3) mg/dL Total Bilirubin (0.2-1.3) mg/dL AST (14-36) U/L ALT (9-52) U/L Alkaline Phosphatase (38-126) U/L Total Creatine Kinase (30-135) U/L CK-MB (CK-2) (0.0-2.4) ng/mL CK-MB (CK-2) Rel Index Troponin I (0.000-0.034) ng/mL Total Protein (6.3-8.2) g/dL Albumin (3.5-5.0) g/dL Disposition Clinical Impression: Back pain, Arm paresthesia, left Disposition: OTHER INSTITUTION NOT DEFINED Condition: Stable Is patient prescribed a controlled substance at d/c from ED?: No Referrals: Hakeem Torres DO [Primary Care Provider] - 1-2 days Time of Disposition: 22:10 - Out of Hospital Transfer - Req. Specs Out of Hospital Transfer - Requested Specifics: Other Emergency Center ([facility]-Dr. Gonzalez)
[2018-07-14 00:25] VITALS: BP 155/72; PULSE 72; TEMP 98.3
== END 2018-07-14 00:24 | disposition other institution (70) ==
LOC: EC 19:53
DX: M54.9 Dorsalgia, unspecified (principal); R20.2 Paresthesia of skin; I45.81 Long QT syndrome; K21.9 Gastro-esophageal reflux disease without esophagitis; E78.5 Hyperlipidemia, unspecified; I10 Essential (primary) hypertension; I25.2 Old myocardial infarction; M06.9 Rheumatoid arthritis, unspecified; Z86.711 Personal history of pulmonary embolism; Z87.891 Personal history of nicotine dependence; Z79.82 Long term (current) use of aspirin; Z79.899 Other long term (current) drug therapy; Z88.6 Allergy status to analgesic agent; Z91.018 Allergy to other foods; Z88.1 Allergy status to other antibiotic agents; Z91.041 Radiographic dye allergy status; Z91.013 Allergy to seafood; Z88.7 Allergy status to serum and vaccine; Z88.0 Allergy status to penicillin; Z88.5 Allergy status to narcotic agent; Z88.8 Allergy status to other drugs, medicaments and biological substances; Z95.5 Presence of coronary angioplasty implant and graft; Z53.8 Procedure and treatment not carried out for other reasons
CPT/HCPCS: 36415; 71046; 80053; 82550; 82553; 83735; 84484; 85025; 85610; 85730; 93005; 99285

== ENCOUNTER → 2018-08-16 | Outpatient (CLI) | payer MEDICARE, BC | END | disposition home or self-care (01) | LOC: CPPFTMAIN 14:01 | PROVIDERS: ATTEND Internal Medicine | DX: J98.4 Other disorders of lung (principal); R06.02 Shortness of breath | CPT/HCPCS: 94010; 94726; 94729 ==

== ENCOUNTER 2019-03-06 08:41 | Emergency (ER) | payer MEDICARE, BC ==
[2019-03-06 09:43] LABS: Basophils % (A) 1 %; Eosinophils # (A) 0.2 k/uL (0-0.7); Eosinophils % (A) 3 %; HCT 40.6 % (34.0-46.0); HGB 12.8 gm/dL (11.4-16.0); Lymphocytes # (A) 1.2 k/uL (1.0-4.8); Lymphocytes % (A) 21 %; MCH 29.8 pg (25.0-35.0); MCHC 31.6 g/dL (31.0-37.0); MCV 94.5 fL (80.0-100.0); Mean Platelet Volume 7.3; Monocytes # (A) 0.5 k/uL (0-1.0); Monocytes % (A) 8 %; Neutrophils # (A) 3.7 k/uL (1.3-7.7); Neutrophils % (A) 64 %; Platelet Count 178 k/uL (150-450); RBC 4.29 m/uL (3.80-5.40); RDW 14.3 % (11.5-15.5); WBC 5.9 k/uL (3.8-10.6)
[2019-03-06 09:51] LABS: INR 0.9 (<1.2); Partial Thromboplastin Time 22.8 sec (22.0-30.0); Prothrombin Time 10.1 sec (9.0-12.0)
--- NOTE | 2019-03-06 09:52 | ED ---
General Adult HPI - General Source: patient Mode of arrival: ambulatory Limitations: no limitations <Virgil Herrera - Last Filed: 03/06/19 12:53> <Jose Juan Bedoya - Last Filed: 03/06/19 16:32> - General Chief complaint: Neuro Symptoms/Deficit Stated complaint: rt eye vision problem, headache Time Seen by Provider: 03/06/19 08:56 - History of Present Illness Initial comments: 73-year-old female with a past medical history of hyperlipidemia, hypertension, [place], PE, hypoglycemia, right carotid surgery 2 months ago presents for eye problems. Patient states that about a week ago on Wednesday she had a few minutes of black vision in the right eye. States the vision resolved however it is now a little bit blurry. States that she has had throbbing in the right eye since that time as well. Patient states she has been getting migraines on and off but has never had these symptoms with migraines. States she called her clerical warehouseman today and they were concerned about a blood clot in the eye. Patient unfortunately had her carotid surgery at [facility]. Denies any pain in the neck. Denies any chest pain. Denies any headache at this time. Patient has no other complaints at this time including shortness of breath, chest pain, abdominal pain, nausea or vomiting, headache. (Virgil Herrera) - Related Data Home Medications Medication Instructions Recorded Confirmed Atenolol [Tenormin] 25 mg PO BID 03/03/14 03/06/19 Colesevelam [Welchol] 1,250 mg PO TID@0800,1200,1600 03/03/14 03/06/19 amLODIPine BESYLATE [Norvasc] 5 mg PO DAILY@92903/03/14 03/06/19 Amiodarone [Cordarone] 200 mg PO DAILY 05/19/17 03/06/19 Atorvastatin [Lipitor] 5 mg PO HS 05/19/17 03/06/19 Calcium Gluc 500mg/Mag/Vit D 1 tab PO DAILY 10/13/17 03/06/19 Furosemide [Lasix] 40 mg PO DAILY 04/08/18 03/06/19 Aspirin EC [Ecotrin Low Dose] 81 mg PO DAILY@0907/13/18 03/06/19 Calcitonin Nasal [Fortical 1 spray NASAL DAILY 07/13/18 03/06/19 (Miacalcin)] Carboxymethyl/Gly/Poly80/Pf 1 dropper BOTH EYES QID PRN 07/13/18 03/06/19 [Refresh Optive Stanley-3 Drops] Cetirizine HCl [Zyrtec] 2.5 mg PO BID 07/13/18 03/06/19 Cholecalciferol [Vitamin D3] 200 unit PO DAILY@1200 07/13/18 03/06/19 Cholecalciferol [Vitamin D3] 400 unit PO DAILY@1600 07/13/18 03/06/19 EPINEPHrine [Epipen 2-Sam] 0.3 mg IM ONCE PRN 07/13/18 03/06/19 Meclizine [Antivert] 6.25 mg PO Q6H PRN 07/13/18 03/06/19 Olmesartan [Benicar] 10 mg PO DAILY 07/13/18 03/06/19 RABEprazole SODIUM [Aciphex] 20 mg PO DAILY@1600 07/13/18 03/06/19 Triamcinolone Acetonide [Nasacort] 1 spray EA NOSTRIL DAILY 07/13/18 03/06/19 amLODIPine [Norvasc] 2.5 mg PO HS@2130 07/13/18 03/06/19 Potassium Chloride ER [K-Dur 20] 10 meq PO DAILY@1200 03/06/19 03/06/19 Potassium Chloride ER [K-Dur 20] 20 meq PO DAILY 03/06/19 03/06/19 Allergies Allergy/AdvReac Type Severity Reaction Status Date / Time aspirin Allergy Unknown Verified 03/06/19 09:54 butorphanol tartrate Allergy Unknown Verified 03/06/19 09:54 [From Stadol] caffeine Allergy Unknown Verified 03/06/19 09:54 cefaclor [From Ceclor] Allergy Unknown Verified 03/06/19 09:54 cefpodoxime proxetil Allergy Unknown Verified 03/06/19 09:54 [From Vantin] cefuroxime axetil Allergy Unknown Verified 03/06/19 09:54 [From Ceftin] ciprofloxacin [From Cipro] Allergy Unknown Verified 03/06/19 09:54 ciprofloxacin HCl Allergy Unknown Verified 03/06/19 09:54 [From Cipro] doxepin Allergy Unknown Verified 03/06/19 09:54 Iodinated Contrast- Oral and Allergy Unknown Verified 03/06/19 09:54 IV Dye [Iodinated Contrast Media - IV Dye] iodine Allergy Unknown Verified 03/06/19 09:54 ketoprofen [From Oruvail] Allergy Unknown Verified 03/06/19 09:54 lidocaine Allergy Unknown Verified 03/06/19 09:54 [From Terramycin (with lidocaine)] loratadine [From Claritin] Allergy Unknown Verified 03/06/19 09:54 methylprednisolone sodium Allergy Unknown Verified 03/06/19 09:54 succinate [From Solu-Medrol] metronidazole [From Flagyl] Allergy Unknown Verified 03/06/19 09:54 ofloxacin [From Floxin] Allergy Unknown Verified 03/06/19 09:54 oxycodone HCl [From Percocet] Allergy Unknown Verified 03/06/19 09:54 oxytetracycline Allergy Unknown Verified 03/06/19 09:54 [From Terramycin (with lidocaine)] penicillin V potassium Allergy Unknown Verified 03/06/19 09:54 [From Pen-Vee K] pitavastatin calcium Allergy Unknown Verified 03/06/19 09:54 [From Livalo] propoxyphene napsylate Allergy Unknown Verified 03/06/19 09:54 [From Darvocet-N] quinapril HCl [From Accupril] Allergy Unknown Verified 03/06/19 09:54 shellfish derived Allergy Unknown Verified 03/06/19 09:54 solifenacin succinate Allergy Unknown Verified 03/06/19 09:54 [From Vesicare] Sulfa (Sulfonamide Allergy Unknown Verified 03/06/19 09:54 Antibiotics) Tetanus Vaccines and Toxoid Allergy Unknown Verified 03/06/19 09:54 [Tetanus Vaccines & Toxoid] nylon Allergy Unknown Uncoded 03/06/19 08:48 rheomacrodex Allergy Unknown Uncoded 03/06/19 08:48 trianlin Allergy Unknown Uncoded 03/06/19 08:48 Review of Systems ROS Other: All systems not noted in ROS Statement are negative. <Virgil Herrera - Last Filed: 03/06/19 12:53> ROS Other: All systems not noted in ROS Statement are negative. <Jose Juan Bedoya - Last Filed: 03/06/19 16:32> ROS Statement: Those systems with pertinent positive or pertinent negative responses have been documented in the HPI. Past Medical History Past Medical History: GERD/Reflux, Hyperlipidemia, Hypertension, Myocardial Infarction ([place]), Pulmonary Embolus ([place]), Rheumatoid Arthritis ([place]) Additional Past Medical History / Comment(s): hypoglycemia, reynauds syndrome, ulcers, hiatal hernia, bells palsy History of Any Multi-Drug Resistant Organisms: None Reported Past Surgical History: Appendectomy, Heart Catheterization With Stent, Orthopedic Surgery Additional Past Surgical History / Comment(s): carpal tunnel sx, hemmorhoid sx, miscarriage, laura carotid, right radial heart cath with 2 stents 05/09/17 lithotripsy Past Psychological History: No Psychological Hx Reported Smoking Status: Former smoker Past Alcohol Use History: None Reported Past Drug Use History: None Reported <Virgil Herrera - Last Filed: 03/06/19 12:53> General Exam Limitations: no limitations General appearance: alert, in no apparent distress Head exam: Present: atraumatic, normocephalic, normal inspection Eye exam: Present: normal appearance, PERRL, EOMI. Absent: scleral icterus, conjunctival injection, periorbital swelling Expanded Eyelids: Normal Inspection: Bilateral Pupils: Regular, Round: Bilateral Sclera/Conjunctival: Normal Inspection: Bilateral IOP (R) in mmH IOP (L) in mmH IOP measured with: Tonopen ENT exam: Present: normal exam, mucous membranes moist Neck exam: Present: normal inspection. Absent: tenderness, meningismus, lymphadenopathy Respiratory exam: Present: normal lung sounds bilaterally. Absent: respiratory distress, wheezes, rales, rhonchi, stridor Cardiovascular Exam: Present: regular rate, normal rhythm, normal heart sounds. Absent: systolic murmur, diastolic murmur, rubs, gallop, clicks <Virgil Herrera - Last Filed: 03/06/19 12:53> Course <Jose Juan Bedoya - Last Filed: 03/06/19 16:32> Vital Signs 03/06/19 03/06/19 08:44 13:00 Temperature 98.3 F 98.0 F Pulse Rate 74 70 Respiratory 16 18 Rate Blood Pressure 134/60 130/64 O2 Sat by Pulse 99 99 Oximetry - Reevaluation(s) Reevaluation #1: 03/06/19 16:31 PA supervision: I proceeded [id number] evaluation the patient did discuss Pfizer her and her was present. I did review the imaging. Patient complains some eye pain but no findings thus far and imaging. I did discuss the case with Dr. Capone who is agreed to see the patient in his office. 03/06/19 16:32 Ultrasound imaging was reviewed by me no evidence of any retinal detachment seen at this time (Jose Juan Bedoya) Medical Decision Making - Lab Data Result diagrams: 03/06/19 09:35 03/06/19 09:30 <Virgil Herrera - Last Filed: 03/06/19 12:53> - Lab Data Result diagrams: 03/06/19 09:35 03/06/19 09:30 <Jose Juan Bedoya - Last Filed: 03/06/19 16:32> - Medical Decision Making 73-year-old female presents for blurry vision of the right eye for the past week. Patient had a few minutes of black vision in the right eye about a week ago that then turned to blurry vision and aching in the eye. History of migraines and she has been having frequent migraines over the past week. Patient has a history of carotid surgery on the right 2 months ago. CBC CMP and PTINR unremarkable. Mild dehydration, patient given IV fluids. Visual acuity is 20/20 in the right eye, 20/25 in the left eye. Pressure in the right eye is 26, left eye 24 with tonometer. Exam of the eyes unremarkable. A bedside ultrasound of the right eye does not show any evidence of retinal detachment. CT brain is normal. CT orbits is normal bilaterally. Carotid duplex ultrasound was ordered which shows hemodynamic significant stenosis of the proximal ICA of the left corresponding to approximately 50-69% diameter reduction by Doppler criteria. No mention of stenosis in the right carotid. Patient states her materials clerk and vascular surgeon is aware of the stenosis in the right carotid. Patient's ocular pain could be related to an ocular migraine as she has been expressing migraines lately. However Dr. Bedoya spoke with Dr Capone, and patient will be discharged from the hospital and will go directly to his office. (Virgil Herrera) - Lab Data Lab Results 03/06/19 03/06/19 03/06/19 Range/Units 09:30 09:30 09:35 WBC 5.9 (3.8-10.6) k/uL RBC 4.29 (3.80-5.40) m/uL Hgb 12.8 (11.4-16.0) gm/dL Hct 40.6 (34.0-46.0) % MCV 94.5 (80.0-100.0) fL MCH 29.8 (25.0-35.0) pg MCHC 31.6 (31.0-37.0) g/dL RDW 14.3 (11.5-15.5) % Plt Count 178 (150-450) k/uL Neutrophils % 64 % Lymphocytes % 21 % Monocytes % 8 % Eosinophils % 3 % Basophils % 1 % Neutrophils # 3.7 (1.3-7.7) k/uL Lymphocytes # 1.2 (1.0-4.8) k/uL Monocytes # 0.5 (0-1.0) k/uL Eosinophils # 0.2 (0-0.7) k/uL Basophils # 0.0 (0-0.2) k/uL PT 10.1 (9.0-12.0) sec INR 0.9 (<1.2) APTT 22.8 (22.0-30.0) sec Sodium 141 (137-145) mmol/L Potassium 4.3 (3.5-5.1) mmol/L Chloride 106 (98-107) mmol/L Carbon Dioxide 27 (22-30) mmol/L Anion Gap 8 mmol/L BUN 35 H (7-17) mg/dL Creatinine 0.91 (0.52-1.04) mg/dL Est GFR (CKD-EPI)AfAm 73 (>60 ml/min/1.73 sqM) Est GFR (CKD-EPI)NonAf 64 (>60 ml/min/1.73 sqM) Glucose 124 H (74-99) mg/dL Calcium 9.5 (8.4-10.2) mg/dL Total Bilirubin 0.5 (0.2-1.3) mg/dL AST 26 (14-36) U/L ALT 21 (9-52) U/L Alkaline Phosphatase 59 (38-126) U/L Total Protein 7.7 (6.3-8.2) g/dL Albumin 4.4 (3.5-5.0) g/dL Disposition Is patient prescribed a controlled substance at d/c from ED?: No Time of Disposition: 12:57 <Virgil Herrera - Last Filed: 03/06/19 12:53> <Jose Juan Bedoya - Last Filed: 03/06/19 16:32> Clinical Impression: Ocular pain, right eye Disposition: HOME SELF-CARE Condition: Good Instructions (If sedation given, give patient instructions): Blurred Vision (ED), Eye Pain (ED) Additional Instructions: Please go directly to Dr sanchez office. Follow-up with primary care as well. Return if you have any worsening symptoms. Referrals: Hakeem Torres DO [Primary Care Provider] - 1-2 days Roberto Capone MD [STAFF PHYSICIAN] - 1-2 days
[2019-03-06 10:00] LABS: Albumin 4.4 g/dL (3.5-5.0); Calcium 9.5 mg/dL (8.4-10.2); Potassium 4.3 mmol/L (3.5-5.1); Total Bilirubin 0.5 mg/dL (0.2-1.3); Total Protein 7.7 g/dL (6.3-8.2)
--- NOTE | 2019-03-06 10:06 | CT ---
EXAMINATION TYPE: CT brain wo con DATE OF EXAM: 03/06/2019 COMPARISON: 03/03/2014 INDICATION: Episode of right side vision loss DLP: 948.8 mGycm, Automated exposure control for dose reduction was used. CONTRAST: None CT of the brain is performed utilizing 3 mm thick sections through the posterior fossa and 3 mm thick sections through the remaining calvarium. Study is performed within 24 hours of arrival to the hosp [facility]. No abnormal hyperdensity is present to suggest an acute intracranial hemorrhage. No mass lesion is evident. No acute infarcts are evident. Ventricles and sulci are appropriate for the patient age. Paranasal sinuses and mastoid air cells within the [id number] are clear. IMPRESSIONS: 1. Normal CT Brain 2. No acute intracranial process.
--- NOTE | 2019-03-06 10:12 | CT ---
EXAMINATION TYPE: CT orbits wo con DATE OF EXAM: 03/06/2019 COMPARISON: CT brain same date INDICATION: Episode of right side vision loss DLP: 948.8 mGycm, Automated exposure control for dose reduction was used. CONTRAST: None CT of the orbits is performed utilizing 2 mm thick sections through the level of the orbits.. Study is performed within 24 hours of arrival to the hospital. Findings: Visualized paranasal sinuses are clear. Mastoid air cells are clear . Orbits appear symmetrical. Extraocular muscles appear normal. Intraconal and extraconal fat is norm al. Superior ophthalmic veins appear normal. There is been prior uncinectomies and ethmoidectomies. IMPRESSIONS: 1. Normal bilateral orbits
--- NOTE | 2019-03-06 10:38 | US ---
EXAMINATION TYPE: US carotid duplex BILAT DATE OF EXAM: 03/06/2019 COMPARISON: NONE CLINICAL HISTORY: r vision loss h/o carotid surg 2 mo ago. Left endarterectomy two years ago. EXAM MEASUREMENTS: RIGHT: Peak Systolic Velocity (PSV) cm/sec ----- Right CCA: 107.3 ----- Right ICA: 89.2 ----- Right ECA: 143.6 ICA/CCA ratio: 0.8 RIGHT: End Diastole cm/sec ----- Right CCA: 16.7 ----- Right ICA: 15.4 ----- Right ECA: 14.4 LEFT: Peak Systolic Velocity (PSV) cm/sec ----- Left CCA: 93.3 ----- Left ICA: 287.0 ----- Left ECA: 125.8 ICA/CCA ratio: 3.1 LEFT: End Diastole cm/sec ----- Left CCA: 15.3 ----- Left ICA: 50.1 ----- Left ECA: 6.3 VERTEBRALS (direction of flow): Right Vertebral: Antegrade Left Vertebral: Antegrade Rhythm: Normal Grayscale, color Doppler, spectral Doppler imaging performed of the carotid arteries. Waveform analys is shows elevated peak systolic velocity within the left internal carotid artery proximally, end-kiran tolic velocity also elevated, there is loss of the systolic window, spectral broadening. Elevated lef t ICA velocity causing stenosis. 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 Criteria for Assigning % of Stenosis / Diameter reduction (Estimation based on the indirect measurements of the internal carotid artery velocities (ICA PSV). 1. Normal (no stenosis)=ICA PSV < 125 cm/s: ratio < 2.0: ICA EDV<40 cm/s. 2. Less than 50% stenosis=ICA PSV < 125 cm/s: ratio < 2.0: ICA EDV<40 cm/s. 3. 50 to 69% stenosis=ICA PSV of 125 to 230 cm/s: ration 2.0 ? 4.0: ICA EDV 40-100 cm/s. 4. Greater than 70% stenosis to near occlusion= ICA PSV > 230 cm/s: ratio > 4.0: ICA EDV > 100 cm/s. 5. Near occlusion= ICA PSV velocities may be low or undetectable: variable ratio and ICA EDV. 6. Total occlusion=unable to detect flow.
[2019-03-06] MEDS ORDERED: SODIUM CHLORIDE 0.9% 500 ML 500 ML IV STA (11:04)
[2019-03-06 13:11] VITALS: BP 130/64; PULSE 70; RESP 18; TEMP 98
== END 2019-03-06 13:11 | disposition home or self-care (01) ==
LOC: EC 08:41
DX: H57.11 Ocular pain, right eye (principal); I65.22 Occlusion and stenosis of left carotid artery; E86.0 Dehydration; K21.9 Gastro-esophageal reflux disease without esophagitis; E78.5 Hyperlipidemia, unspecified; I10 Essential (primary) hypertension; I25.2 Old myocardial infarction; Z86.69 Personal history of other diseases of the nervous system and sense organs; Z95.5 Presence of coronary angioplasty implant and graft; Z98.890 Other specified postprocedural states; Z87.891 Personal history of nicotine dependence; Z79.82 Long term (current) use of aspirin; Z79.899 Other long term (current) drug therapy; Z88.6 Allergy status to analgesic agent; Z88.5 Allergy status to narcotic agent; Z88.1 Allergy status to other antibiotic agents; Z91.041 Radiographic dye allergy status; Z88.4 Allergy status to anesthetic agent; Z88.8 Allergy status to other drugs, medicaments and biological substances; Z88.0 Allergy status to penicillin; Z91.013 Allergy to seafood; Z88.2 Allergy status to sulfonamides; Z88.7 Allergy status to serum and vaccine; Z91.048 Other nonmedicinal substance allergy status; Z53.29 Procedure and treatment not carried out because of patient's decision for other reasons
CPT/HCPCS: 36415; 70450; 70480; 80053; 85025; 85610; 85730; 93005; 93880; 99284

== ENCOUNTER → 2019-05-04 | Outpatient (CLI) | payer MEDICARE, BC | END | disposition home or self-care (01) | LOC: LABWHC1 15:58 | PROVIDERS: ATTEND Student in an Organized Health Care Education/Training Program | DX: M25.511 Pain in right shoulder (principal); M75.111 Incomplete rotator cuff tear or rupture of right shoulder, not specified as traumatic; M19.011 Primary osteoarthritis, right shoulder | CPT/HCPCS: 87070 ==

== ENCOUNTER → 2019-09-08 | Outpatient (CLI) | payer MEDICARE, BC ==
[2019-09-08 11:48] LABS: African American GFR (CKD) 64 (>60 ml/min/1.73 sqM); Anion Gap 6 mmol/L; Blood Urea Nitrogen 28 mg/dL (7-17); Calcium 9.4 mg/dL (8.4-10.2); Carbon Dioxide 26 mmol/L (22-30); Chloride 107 mmol/L (98-107); Glucose 155 mg/dL (74-99); Non-African American GFR(CKD) 55 (>60 ml/min/1.73 sqM); Potassium 4.7 mmol/L (3.5-5.1); Sodium 139 mmol/L (137-145)
== END | disposition home or self-care (01) ==
LOC: LABWHC1 11:13
PROVIDERS: ATTEND Internal Medicine
DX: K21.9 Gastro-esophageal reflux disease without esophagitis (principal); I73.00 Raynaud's syndrome without gangrene; I25.10 Atherosclerotic heart disease of native coronary artery without angina pectoris; I35.0 Nonrheumatic aortic (valve) stenosis
CPT/HCPCS: 36415; 80048

== ENCOUNTER → 2019-11-02 | Outpatient (CLI) | payer MEDICARE, BC ==
--- NOTE | 2019-11-02 14:30 | XR ---
EXAMINATION TYPE: XR chest 2V DATE OF EXAM: 11/02/2019 COMPARISON: 07/13/2018 and 04/08/2018 HISTORY: 74 year-old female shortness of breath, bronchitis, R05. TECHNIQUE: Frontal and lateral views FINDINGS: Partially visualized reversed right total shoulder arthroplasty. Heart borderline enlarged. Diffuse interstitial density is unchanged. Soft tissue nodularity at the a zygos esophageal recess region. No monty consolidation or pleural effusion. Endovascular aortic valve replacement. IMPRESSION: 1. Borderline cardiomegaly and interstitial changes. Correlate for mild pulmonary vascular congestion . 2. If there are corresponding signs/symptoms of fluid overload state, follow-up after successful judd tment is recommended to reassess the nodularity at the right paratracheal region and exclude mass/lym phadenopathy. This could represent distention of the azygos vein in the setting of volume overload.
--- NOTE | 2019-11-02 14:55 | US ---
EXAMINATION TYPE: US lower ext pseudo artery RT DATE OF EXAM: 11/02/2019 COMPARISON: NONE CLINICAL HISTORY: Pseudoaneurysm I72. 4. Valve replacement 1 month ago, right groin pain EXAM PERFORMED: Grayscale and color Doppler duplex imaging performed of the groin, post cardiac subha ter to assess for pseudoaneurysm. SIDE PERFORMED: Right Color and Waveform Doppler performed to assess for the presence of pseudoaneurysm; Is there ultrasound evidence of a pseudoaneurysm: no Is there evidence of AV shunting: no Is there a fluid collection present: no Limited scanning performed in the right groin. IMPRESSION: No evident pseudoaneurysm within the right groin.
== END | disposition home or self-care (01) ==
LOC: RADUSMAIN 14:02
PROVIDERS: ATTEND Internal Medicine Interventional Cardiology
DX: I51.7 Cardiomegaly (principal); R05 Cough; R06.02 Shortness of breath; I72.4 Aneurysm of artery of lower extremity
CPT/HCPCS: 71046; 93975

== ENCOUNTER → 2020-03-28 | Outpatient (CLI) | payer MEDICARE, BC ==
--- NOTE | 2020-03-28 15:56 | XR ---
EXAMINATION TYPE: XR lumbar spine 2 or 3V DATE OF EXAM: 03/28/2020 CLINICAL HISTORY: History of fusion with low back pain. TECHNIQUE: Frontal and lateral images of the lumbar spine are obtained. COMPARISON: Prior lumbar spine x-ray January 27, 2016 FINDINGS: There are 5 lumbar type vertebral bodies redemonstrated. There are persistent posterior in terpedicular rods and screws with artificial disc material L5-S1 level. Appearance unchanged. Stable slight grade 1 anterolisthesis L4 on L5. Persistent moderate to severe multilevel anterior and latera l spurring. Vertebral body heights and disc space heights are otherwise maintained. Vascular calcific ation overlying abdominal aorta redemonstrated. New metallic stent graft right common iliac artery no soo. IMPRESSION: As above.
== END | disposition home or self-care (01) ==
LOC: RADXRMAIN 15:17
PROVIDERS: ATTEND Family Medicine
DX: M51.36 Other intervertebral disc degeneration, lumbar region (principal); Z98.1 Arthrodesis status
CPT/HCPCS: 72100

== ENCOUNTER → 2020-04-12 | Day surgery (SDC) | payer MEDICARE, BC ==
[2020-04-11 11:50] VITALS: BMI 44.1
[~2020-04-12] MED LIST: LACTATED RINGERS 1,000 ML IV SCH; LIDOCAINE 1% (10MG/ML) FOR IV START INTRADERMA PRN; LIDOCAINE 1% INJ 10MG/ML (20 ML MDV) ONE; PROPOFOL 10 MG/ML 20 ML VIAL IV ONE
[2020-04-12 08:10] VITALS: RESP 18; TEMP 96
--- NOTE | 2020-04-12 09:01 | P.PCN ---
Date of Procedure: 04/12/20 Procedure(s) Performed: BRIEF HISTORY: Patient is a 74-year-old, pleasant, white female scheduled for an upper endoscopy as a part of evaluation of long-standing history of GERD for the last 15 years duration. Lately has been complaining of chronic persistent nausea with occasional emesis. Her medications were changed from AcipHex to omeprazole 20 mg daily and is feeling better. Scheduled for endoscopy to evaluate further. PROCEDURE PERFORMED: Esophagogastroduodenoscopy with biopsy. PREOPERATIVE DIAGNOSIS: Long-standing history of GERD/chronic persistent nausea. IV sedation per anesthesia. PROCEDURE: After informed consent was obtained, the patient was brought into the endoscopy unit. IV sedation was administered by Anesthesia under continuous monitoring. Initially the Olympus GIF-140 video endoscope was inserted into the mouth. Esophagus intubated without any difficulty. It was gradually advanced into the stomach and duodenum and carefully examined. The bulb and the second part of the duodenum appeared normal. Biopsies were done from the duodenum to rule out celiac disease. The scope at this time was withdrawn to the stomach, adequately insufflated with air, and upon careful examination, mucosa of the antrum, had mild gastritis and biopsies were done from this area. The body, cardia and the fundus appeared normal. The scope was then withdrawn into the esophagus. The GE junction was located at 39 cm from the incisors. The esophagus appeared normal. There were no erosions or ulcerations seen , biopsies were done from the distal esophagus and the patient tolerated the procedure well. IMPRESSION: 1. Mild antral gastritis. 2. No evidence of esophagitis or Motley's esophagus. RECOMMENDATIONS: The findings of this examination were discussed with the patient as well as a family. She was advised to follow with the biopsy results. She will continue with omeprazole 20 mg daily and continue to follow antireflux measures..
[2020-04-12 09:17] VITALS: BP 143/75; PULSE 58
== END ==
LOC: ORWHC2ENDO 07:38 → MERGE 10:50
PROVIDERS: ATTEND Internal Medicine Gastroenterology
DX: K29.50 Unspecified chronic gastritis without bleeding (principal); K21.9 Gastro-esophageal reflux disease without esophagitis; I25.2 Old myocardial infarction; I25.10 Atherosclerotic heart disease of native coronary artery without angina pectoris; I10 Essential (primary) hypertension; I73.9 Peripheral vascular disease, unspecified; E78.5 Hyperlipidemia, unspecified; M06.9 Rheumatoid arthritis, unspecified; I73.00 Raynaud's syndrome without gangrene; Z86.711 Personal history of pulmonary embolism; Z79.82 Long term (current) use of aspirin; Z79.899 Other long term (current) drug therapy; Z90.49 Acquired absence of other specified parts of digestive tract; Z95.4 Presence of other heart-valve replacement; Z95.5 Presence of coronary angioplasty implant and graft
CPT/HCPCS: 88305; 88302; 43239; J2001; J2704

== ENCOUNTER → 2020-06-14 | Outpatient (CLI) | payer MEDICARE, BC ==
--- NOTE | 2020-06-18 10:47 | MM ---
Reason for exam: screening (asymptomatic). Last mammogram was performed 2 years and 8 months ago. History: Patient is postmenopausal. Physical Findings: A clinical breast exam by your physician is recommended on an annual basis and results should be correlated with mammographic findings. MG Screening Mammo w CAD Bilateral CC and MLO view(s) were taken. Prior study comparison: October 01, 2017, bilateral MG screening mammo w CAD. August 17, 2016, bilateral MG screening mammo w CAD. There are scattered fibroglandular densities. There is chronic nodularity in the left breast. Benign oil cyst calcifications. No significant changes when compared with prior studies. ASSESSMENT: Benign, BI-RAD 2 RECOMMENDATION: Routine screening mammogram of both breasts in 1 year.
== END | disposition home or self-care (01) ==
LOC: RADMAMWWP 08:50
PROVIDERS: ATTEND Family Medicine
DX: Z12.31 Encounter for screening mammogram for malignant neoplasm of breast (principal)
CPT/HCPCS: 77067

== ENCOUNTER 2020-09-21 | Emergency (ER) | payer MEDICARE, BC ==
--- NOTE | 2020-09-21 21:43 | ED ---
Skin/Abscess/FB HPI - General Chief complaint: Skin/Abscess/Foreign Body Stated complaint: Allergic Reaction Time Seen by Provider: 09/21/20 21:25 Source: patient Mode of arrival: ambulatory Limitations: no limitations - History of Present Illness Initial comments: 75-year-old female presents with ALLERGIC reaction to the first covid vaccine. Patient states 10 days ago she got the first vaccine in about 3-4 hours later she developed itchy red arm right where she got the injection. Patient states she tolerated is expecting this. Patient then stated over the last few days she noticed increased rash on the back of her neck and upper back she is very itchy and now today she feels sensation in the left side of her tongue and face just feels "different". Patient denies any fever nausea vomiting. Patient has significant medication ALLERGIES patient denies any shortness of breath wheezing or trouble breathing. MD complaint: rash, other (itching) -: days(s) Location: head, neck, back Consistency: constant Improves with: medication (benedryl) Context: new medication (vaccine) Associated symptoms: itching - Related Data Home Medications Medication Instructions Recorded Confirmed Colesevelam [Welchol] 1,250 mg PO TID 03/03/14 04/12/20 amLODIPine BESYLATE [Norvasc] 5 mg PO QAM 03/03/14 04/11/20 atenoloL [Tenormin] 25 mg PO BID 03/03/14 04/11/20 Amiodarone [Cordarone] 200 mg PO QAM 05/19/17 04/11/20 Atorvastatin [Lipitor] 5 mg PO HS 05/19/17 04/12/20 Calcium Gluc 500mg/Mag/Vit D 1 tab PO DAILY 10/13/17 04/12/20 Furosemide [Lasix] 60 mg PO DAILY 04/08/18 04/12/20 Aspirin EC [Ecotrin Low Dose] 81 mg PO DAILY 07/13/18 04/12/20 Calcitonin Nasal [Fortical 1 spray NASAL DAILY 07/13/18 04/12/20 (Miacalcin)] Carboxymethyl/Gly/Poly80/Pf 1 dropper BOTH EYES QID PRN 07/13/18 04/12/20 [Refresh Optive Stanley-3 Drops] Cholecalciferol [Vitamin D3] 600 unit PO DIRECTED 07/13/18 04/12/20 EPINEPHrine [Epipen 2-Sam] 0.3 mg IM ONCE PRN 07/13/18 04/11/20 Meclizine [Antivert] 6.25 mg PO Q6H PRN 07/13/18 04/12/20 Triamcinolone Acetonide [Nasacort] 1 spray EA NOSTRIL DAILY 07/13/18 04/12/20 amLODIPine [Norvasc] 2.5 mg PO HS 07/13/18 04/12/20 Clopidogrel [Plavix] 75 mg PO DAILY 02/27/20 04/11/20 Omeprazole 20 mg PO BID 02/27/20 04/12/20 Azithromycin [Zithromax] 500 mg PO ONCE PRN 04/11/20 04/11/20 Cetirizine HCl [Zyrtec] 2.5 mg PO BID 04/11/20 04/12/20 Olmesartan [Benicar] 20 mg PO DAILY@1300 04/11/20 04/12/20 Potassium Chloride [Klor-Con 10] 5 meq PO DAILY@1200 04/11/20 04/12/20 Potassium Chloride [Klor-Con 10] 10 meq PO QAM 04/11/20 04/12/20 Previous Rx's Medication Instructions Recorded Hydrocortisone Cream 1 applic TOPICAL BID #100 cream..g. 09/21/20 [Hydrocortisone 2.5% Cream] Allergies Allergy/AdvReac Type Severity Reaction Status Date / Time iodine Allergy Severe Anaphylaxis Verified 09/21/20 21:08 shellfish derived Allergy Severe Anaphylaxis Verified 09/21/20 21:08 butorphanol tartrate Allergy Unknown Verified 09/21/20 21:08 [From Stadol] caffeine Allergy Unknown Verified 09/21/20 21:08 cefaclor [From Ceclor] Allergy Unknown Verified 09/21/20 21:08 cefpodoxime proxetil Allergy Unknown Verified 09/21/20 21:08 [From Vantin] cefuroxime axetil Allergy Unknown Verified 09/21/20 21:08 [From Ceftin] ciprofloxacin [From Cipro] Allergy Unknown Verified 09/21/20 21:08 ciprofloxacin HCl Allergy Unknown Verified 09/21/20 21:08 [From Cipro] doxepin Allergy Unknown Verified 09/21/20 21:08 Iodinated Contrast Media Allergy Unknown Verified 09/21/20 21:08 [Iodinated Contrast Media - IV Dye] ketoprofen [From Oruvail] Allergy Unknown Verified 09/21/20 21:08 lidocaine Allergy Unknown Verified 09/21/20 21:08 [From Terramycin (with lidocaine)] loratadine [From Claritin] Allergy Unknown Verified 09/21/20 21:08 methylprednisolone sodium Allergy Unknown Verified 09/21/20 21:08 succinate [From Solu-Medrol] metronidazole [From Flagyl] Allergy Unknown Verified 09/21/20 21:08 ofloxacin [From Floxin] Allergy Unknown Verified 09/21/20 21:08 oxycodone HCl [From Percocet] Allergy Unknown Verified 09/21/20 21:08 oxytetracycline Allergy Unknown Verified 09/21/20 21:08 [From Terramycin (with lidocaine)] penicillin V potassium Allergy Unknown Verified 09/21/20 21:08 [From Pen-Vee K] pitavastatin calcium Allergy Unknown Verified 09/21/20 21:08 [From Livalo] propoxyphene napsylate Allergy Unknown Verified 09/21/20 21:08 [From Darvocet-N] quinapril HCl [From Accupril] Allergy Unknown Verified 09/21/20 21:08 solifenacin succinate Allergy Unknown Verified 09/21/20 21:08 [From Vesicare] Sulfa (Sulfonamide Allergy Unknown Verified 09/21/20 21:08 Antibiotics) Tetanus Vaccines and Toxoid Allergy Unknown Verified 09/21/20 21:08 [Tetanus Vaccines & Toxoid] nylon Allergy Unknown Uncoded 09/21/20 21:08 rheomacrodex Allergy Unknown Uncoded 09/21/20 21:08 trianlin Allergy Unknown Uncoded 09/21/20 21:08 Review of Systems ROS Statement: Those systems with pertinent positive or pertinent negative responses have been documented in the HPI. ROS Other: All systems not noted in ROS Statement are negative. Constitutional: Denies: fever, chills ENT: Denies: throat pain Respiratory: Denies: cough, dyspnea, wheezes Endocrine: Denies: fatigue Gastrointestinal: Denies: nausea, vomiting Skin: Reports: rash, pruritus Past Medical History Past Medical History: CVA/TIA, GERD/Reflux, Hyperlipidemia, Hypertension, Myocardial Infarction ([place]) Additional Past Medical History / Comment(s): Hypoglycemia, Reynauds Syndrome. Hx ulcers, kidney stones, Shingles, H Pylori. Hiatal Hernia, [place] Palsy, Sciatcia. Hx Slight TIA, no damage. Last Myocardial Infarction Date:: 2017 History of Any Multi-Drug Resistant Organisms: None Reported Past Surgical History: Appendectomy, Back Surgery, Cardiac Valve Replacement, Heart Catheterization With Stent, Orthopedic Surgery Additional Past Surgical History / Comment(s): Cardiac Valve Replacement 10/05. Carpal tunnel sx, hemmorhoid sx, miscarriage, bilateral carotid artery surgery, right radial heart cath with 2 stents ,lithotripsy, right shoulder surgery. BACK SX X 3 PLUS CAGE AND SCREWS, Past Anesthesia/Blood Transfusion Reactions: Motion Sickness, Postoperative Nausea & Vomiting (PONV) Additional Past Anesthesia/Blood Transfusion Reaction / Comment(s): "Sensitive to anesthesia, a little bit goes a long way." Date of Last Stent Placement:: 05/09/17 Past Psychological History: No Psychological Hx Reported Smoking Status: Former smoker Past Alcohol Use History: None Reported Past Drug Use History: None Reported - Past Family History Mother Family Medical History: Cancer General Exam Limitations: no limitations General appearance: alert, in no apparent distress Head exam: Present: atraumatic, normocephalic, normal inspection Eye exam: Present: normal appearance, PERRL, EOMI. Absent: scleral icterus, conjunctival injection, periorbital swelling ENT exam: Present: normal exam, normal oropharynx Neck exam: Present: normal inspection, full ROM. Absent: tenderness, meningismus, lymphadenopathy Respiratory exam: Present: normal lung sounds bilaterally. Absent: respiratory distress, wheezes, rales, rhonchi, stridor Cardiovascular Exam: Present: regular rate, normal rhythm, normal heart sounds. Absent: systolic murmur, diastolic murmur, rubs, gallop, clicks GI/Abdominal exam: Present: soft, normal bowel sounds. Absent: distended, tenderness, guarding, rebound, rigid Neurological exam: Present: alert, oriented X3, CN II-XII intact Psychiatric exam: Present: normal affect, normal mood Skin exam: Present: warm, dry, intact, normal color, erythema (left upper arm where shot was given, slight redness at neck, at hairline. no other rash noted). Absent: rash Course Vital Signs 09/21/20 21:04 Temperature 98.3 F Pulse Rate 70 Respiratory 18 Rate Blood Pressure 134/60 O2 Sat by Pulse 98 Oximetry Medical Decision Making - Medical Decision Making pt very comfortable in the room. Patient not having trouble breathing or swallowing no tongue or lip edema airway patent. Discussed with . Due to patient's significant ALLERGY list we will try topical steroids for symptoms the patient to continue on child's dose Benadryl every 4 hours as needed patient have close follow-up with family doctor to discussed getting possible second covid vaccine. Disposition Clinical Impression: Vaccine reaction, Pruritic rash Disposition: HOME SELF-CARE Condition: Fair Instructions (If sedation given, give patient instructions): Itchy Skin (ED) Prescriptions: Hydrocortisone Cream [Hydrocortisone 2.5% Cream] 1 applic TOPICAL BID #100 cream..g. Is patient prescribed a controlled substance at d/c from ED?: No Referrals: Hakeem Torres DO [Primary Care Provider] - 1-2 days Time of Disposition: 22:49
== END 2020-09-21 23:04 | disposition home or self-care (01) ==

== ENCOUNTER → 2020-10-18 | Outpatient (CLI) | payer MEDICARE, BC ==
--- NOTE | 2020-10-18 16:38 | XR ---
Left shoulder HISTORY: Pain, limited range of motion 3 views of the left shoulder There is hypertrophic change at the chromic clavicular joint. Bone mineralization alignment are maint ained. No fracture or dislocation. Left lung apex as visualized is normal. Distal acromion is somewha t downturned. Questionable calcification along the distribution of the rotator cuff. Postprocedural c hanges noted to the heart, there is atelectatic calcification seen within the aorta. IMPRESSION: Correlate for impingement, shoulder MRI may be of benefit. Possible calcific tendinitis.
== END | disposition home or self-care (01) ==
LOC: RADXRMAIN 15:20
PROVIDERS: ATTEND Nurse Practitioner Family
DX: M75.42 Impingement syndrome of left shoulder (principal)

== ENCOUNTER → 2020-12-04 | Outpatient (CLI) | payer MEDICARE, BC ==
--- NOTE | 2020-12-04 09:41 | CT ---
EXAMINATION TYPE: CT abdomen pelvis wo con DATE OF EXAM: 12/04/2020 COMPARISON: None HISTORY: 75-year-old female R31.29, Other microscopic hematuria CT DLP: 1112.40 mGycm. Automated exposure control for dose reduction was used. TECHNIQUE: Contiguous axial scanning of the abdomen and pelvis without IV contrast. Coronal and sagit nicole reconstructions performed. FINDINGS: Partially visualized prosthetic aortic valve or a neoplastic. Some RCA coronary calcifications are pr esent. Prominent varices along the lower posterior mediastinum involving the azygos system and also a long the left heart margin. Heart upper limits of normal in size. Strandy areas of atelectasis in the lower lungs without pleural effusion. Noncontrast appearance of the liver, gallbladder, adrenal glands, spleen, and pancreas show no gross crowding. Parapelvic cysts within the left kidney measuring up to 1.7 cm. No hydronephrosis on either side. The re is a 1.4 cm calculus within the calyx of the mid pole right kidney. No suspicious calcification al milagros the course of either ureter. Moderate to severe atherosclerotic calcifications, aorta and iliac arteries. This may be a severe raffaele nosis of the proximal left common iliac artery. A right common iliac artery stent is present. No dilated small bowel, free fluid, or free air. No mesenteric or retroperitoneal lymphadenopathy. Oral contrast progressed into the ascending colon. Mild to moderate stool. Mildly redundant sigmoid c olon. No pericolonic inflammatory change. Bladder is urine distended. Uterus anteverted. Both ovaries are visualized. Pelvic phleboliths. No ab normal fluid collection in the pelvis or pelvic lymphadenopathy. Bones: Mild to moderate degenerative change of the hips. Postsurgical change of L5-S1 posterior and i nterbody lumbar fusion. Moderate degenerative disc disease above and L4-L5 with facet arthropathy and grade 1 anterolisthesis. IMPRESSION: 1. A 1.4 cm calculus within a calyx of the right kidney midpole. No obstructive uropathy. Parapelvic cysts in the left kidney measure up to 1.7 cm. 2. Consider contrast enhanced CT chest to evaluate apparent varices of the azygos system in the visu alized lower chest and additional varices along the left heart margin. 3. Previous right common iliac artery stent. Atherosclerotic calcifications may contribute to severe stenosis of the proximal left common iliac artery.
== END | disposition home or self-care (01) ==
LOC: RADCTMAIN 08:14
PROVIDERS: ATTEND Surgery
DX: N20.0 Calculus of kidney (principal); N28.1 Cyst of kidney, acquired
CPT/HCPCS: 74176

== ENCOUNTER → 2021-02-17 | Outpatient (CLI) | payer MEDICARE, BC ==
--- NOTE | 2021-02-17 18:48 | US ---
EXAMINATION TYPE: US kidneys/renal and bladder DATE OF EXAM: 02/17/2021 COMPARISON: 03/01/2018 CLINICAL HISTORY: 72-year-old female N20.0 KIDNEY STONES. History of kidney stones, lithotripsy right kidney 2 weeks ago EXAM MEASUREMENTS: Right Kidney: 11.8 x 5.8 x 4.7 cm Left Kidney: 11.5 x 6.0 x 4.5 cm Right Kidney: no evidence of hydronephrosis Left Kidney: parapelvic cysts noted measuring up to 2.2 cm versus 1.9 cm in 2018. No clearly apparent shadowing calculus seen on either side by ultrasound. Bladder: appears wnl Bilateral Jets seen: yes IMPRESSION: Parapelvic cysts in the left kidney measuring up to 2.2 cm. No definite hydronephrosis.
== END | disposition home or self-care (01) ==
LOC: RADUSWWP 12:49
PROVIDERS: ATTEND Surgery
DX: N28.1 Cyst of kidney, acquired (principal); Z87.442 Personal history of urinary calculi
CPT/HCPCS: 76770

== ENCOUNTER → 2021-04-29 | Outpatient (CLI) | payer MEDICARE, BC ==
[2021-04-29 22:42] LABS: Basophils # (A) 0.03 X 10*3/uL (0.00-0.10); Basophils % (A) 0.5 %; Eosinophils # (A) 0.12 X 10*3/uL (0.04-0.35); HGB 14.4 g/dL (12.0-15.0); Lymphocytes # (A) 1.27 X 10*3/uL (0.90-5.00); Lymphocytes % (A) 21.7 %; MCH 31.7 pg (27.0-32.0); MCV 99.1 fL (80.0-97.0); Mean Platelet Volume 10.5 fL (9.5-12.2); Monocytes # (A) 0.62 X 10*3/uL (0.20-1.00); Monocytes % (A) 10.6 %; Neutrophils # (A) 3.81 X 10*3/uL (1.80-7.70); Platelet Count 167 X 10*3/uL (140-440); RBC 4.54 X 10*6/uL (4.10-5.20); RDW 14.6 % (11.5-14.5); WBC 5.86 X 10*3/uL (4.50-10.00)
[2021-04-30 07:35] LABS: African American GFR (CKD) 50.9 (60.0-200.0); BUN/Creat Ratio 35.49 Ratio (12.00-20.00); Blood Urea Nitrogen 43.3 mg/dL (9.0-27.0); Calcium 9.4 mg/dL (8.7-10.3); Carbon Dioxide 21.1 mmol/L (21.6-31.8); Non-African American GFR(CKD) 43.9 (60.0-200.0)
== END | disposition home or self-care (01) ==
LOC: LABWHC1 16:33
PROVIDERS: ATTEND Internal Medicine
DX: I25.10 Atherosclerotic heart disease of native coronary artery without angina pectoris (principal); I35.0 Nonrheumatic aortic (valve) stenosis; K21.9 Gastro-esophageal reflux disease without esophagitis; R23.3 Spontaneous ecchymoses
CPT/HCPCS: 36415; 80048; 85025

== ENCOUNTER → 2021-08-18 | Outpatient (CLI) | payer MEDICARE, BC ==
--- NOTE | 2021-08-18 14:36 | XR ---
KUB HISTORY: N 20.0 Frontal KUB submitted and correlated to CT scan dated 12/04/2020, prior KUB 08/08/2017 Patient shows postop changes at the lumbosacral spine. There is a vascular stent along the left and r ight common iliac region. There is a slight spinal curvature. There are hypertrophic changes along th e spine. Multiple calcifications are present within the pelvis. Lung bases are clear. No evident richard l obstruction or pneumoperitoneum. Bowel gas may obscure underlying detail. Retained fecal debris pre sent within the colon. There are possible atelectatic diverticula, calcified injection granuloma. Cholo cification seen on prior CT in the right kidney is not as well seen on plain film. IMPRESSION: Overlying bowel gas may obscure detail. Indeterminate pelvic calcifications.
== END | disposition home or self-care (01) ==
LOC: RADXRMAIN 11:21
PROVIDERS: ATTEND Surgery
DX: N20.0 Calculus of kidney (principal)
CPT/HCPCS: 74018

== ENCOUNTER → 2021-10-17 | Outpatient (CLI) | payer MEDICARE, BC ==
--- NOTE | 2021-10-18 10:40 | CT ---
EXAMINATION TYPE: CT abdomen pelvis wo con DATE OF EXAM: 10/17/2021 HISTORY: DIVERTICULITIS/ RENAL STONE CT DLP: 796.7 mGycm. Automated Exposure Control for Dose Reduction was Utilized. TECHNIQUE: CT scan of the abdomen and pelvis is performed without oral or IV contrast. COMPARISON: CT abdomen and pelvis December 04, 2020 FINDINGS: Within the limitations of a non-contrast study, the following observations are made. LUNG BASES: Coronary artery calcification redemonstrated. Mild bibasilar atelectasis and/or scarring again seen. Persistent prominent retrocrural vessels posterior to the aorta. LIVER/GB: No significant abnormality is appreciated. PANCREAS: No significant abnormality is seen. SPLEEN: No significant abnormality is seen. ADRENALS: No significant abnormality is seen. KIDNEYS: No renal calculi identified bilaterally on current study. Persistent central parapelvic cyst s redemonstrated. No hydronephrosis seen bilaterally currently. No intraluminal calculi in the urinar y bladder. BOWEL: Suboptimal evaluation of bowel without enteric contrast. Stomach poorly distended and suboptim ally evaluated. No suspicious small or large bowel dilatation. Somewhat redundant sigmoid colon redem onstrated.. GENITAL ORGANS: Anteverted uterus redemonstrated. Occasional scattered pelvic phleboliths including d ominant cul-de-sac phlebolith axial image 67 redemonstrated. LYMPH NODES: No new greater than 1cm abdominal or pelvic lymph nodes are appreciated. OSSEOUS STRUCTURES: Postsurgical changes lumbosacral junction redemonstrated. Stable grade 1 anteroli sthesis L4 on L5 with vacuum disc phenomenon. [id number] axial joint space loss in both hips re demonstrated. OTHER: Severe calcified plaque of the abdominal aorta extends into the iliac branch vessels. Common i liac arterial stents are now thought present. IMPRESSION: 1. No renal stones or hydronephrosis is seen bilaterally on current study. 2. No significant colonic diverticulosis or CT evidence for acute diverticulitis on current exam.
== END | disposition home or self-care (01) ==
LOC: RADCTMAIN 18:19
PROVIDERS: ATTEND Family Medicine
DX: K57.32 Diverticulitis of large intestine without perforation or abscess without bleeding (principal)
CPT/HCPCS: 74176

== ENCOUNTER → 2021-12-22 | Outpatient (CLI) | payer MEDICARE, BC ==
--- NOTE | 2021-12-22 18:36 | US ---
EXAMINATION TYPE: US carotid duplex BILAT DATE OF EXAM: 12/22/2021 COMPARISON: 03/06/2019 CLINICAL HISTORY: 76-year-old female I35.0 NONRHEUMATIC AORTIC STENOSIS. Bilat. Carotid endarterectom y. 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 Indirect Doppler criteria was utilized. FINDINGS: EXAM MEASUREMENTS: RIGHT: Peak Systolic Velocity (PSV) cm/sec ----- Right CCA: 85.7 ----- Right ICA: 85.0 ----- Right ECA: 93.5 ICA/CCA ratio: 1.0 RIGHT: End Diastole cm/sec ----- Right CCA: 20.9 ----- Right ICA: 25.3 ----- Right ECA: 10.5 LEFT: Peak Systolic Velocity (PSV) cm/sec ----- Left CCA: 64.3 ----- Left ICA: occluded ----- Left ECA: 96.2 ICA/CCA ratio: N/A LEFT: End Diastole cm/sec ----- Left CCA: 8.4 ----- Left ICA: occluded ----- Left ECA: 15.7 VERTEBRALS (direction of flow): Right Vertebral: Antegrade Left Vertebral: Antegrade Rhythm: Normal Ginning Operator notes: Mild plaque right bifurcation. LEFT ICA appears occluded IMPRESSION: No flow could be identified within the left ICA. Findings suggest ICA occlusion. Criteria for Assigning % of Stenosis / Diameter reduction (Estimation based on the indirect measurements of the internal carotid artery velocities (ICA PSV). 1. Normal (no stenosis)=ICA PSV < 125 cm/s: ratio < 2.0: ICA EDV<40 cm/s. 2. Less than 50% stenosis=ICA PSV < 125 cm/s: ratio < 2.0: ICA EDV<40 cm/s. 3. 50 to 69% stenosis=ICA PSV of 125 to 230 cm/s: ration 2.0 ? 4.0: ICA EDV 40-100 cm/s. 4. Greater than 70% stenosis to near occlusion= ICA PSV > 230 cm/s: ratio > 4.0: ICA EDV > 100 cm/s. 5. Near occlusion= ICA PSV velocities may be low or undetectable: variable ratio and ICA EDV. 6. Total occlusion=unable to detect flow.
--- NOTE | 2021-12-23 10:32 | CA ---
Transthoracic Echo Report Name: Azeb Reinoso Age: 76 Gender: F : 1945 Exam Date: 12/22/2021 13:58 Exam Location: [facility] Ht (in): 64 Wt (lb): 189 Ordering Physician: Carl Thomas MD Attending/Referring Phys: Carl Thomas MD Supervisor Grinding Jemma Melendez [facility] Procedure CPT: Indications: I25.10 THSCL HEART DISEASE Cardiac Hx: TAVR 2018 Technical Quality: Good Contrast 1: Total Dose (mL): Contrast 2: Total Dose (mL): MEASUREMENTS (Male / Female) Normal Values 2D ECHO LV Diastolic Diameter PLAX 4.7 cm 4.2 - 5.9 / 3.9 - 5.3 cm LV Systolic Diameter PLAX 3.5 cm IVS Diastolic Thickness 1.1 cm 0.6 - 1.0 / 0.6 - 0.9 cm LVPW Diastolic Thickness 1.0 cm 0.6 - 1.0 / 0.6 - 0.9 cm LV Relative Wall Thickness 0.4 RV Internal Dim ED PLAX 3.0 cm LVOT Diameter 1.7 cm LA Systolic Diameter LX 3.6 cm 3.0 - 4.0 / 2.7 - 3.8 cm LA Volume 54.5 cm??? 18 - 58 / 22 - 52 cm??? M-MODE Aortic Root Diameter MM 2.8 cm MV E Point Septal Separation 0.7 cm AV Cusp Separation MM 1.4 cm DOPPLER AV Peak Velocity 262.5 cm/s AV Peak Gradient 27.6 mmHg AV Mean Velocity 165.3 cm/s AV Mean Gradient 12.8 mmHg AV Velocity Time Integral 61.0 cm LVOT Peak Velocity 106.4 cm/s LVOT Peak Gradient 4.5 mmHg LVOT Velocity Time Integral 24.2 cm LVOT Stroke Volume 56.7 cm??? LVOT Stroke Volume Index 29.7 ml/m??? AV Area Cont Eq vti 0.9 cm??? AV Area Cont Eq pk 1.0 cm??? MV Area PHT 2.7 cm??? Mitral E Point Velocity 66.9 cm/s Mitral A Point Velocity 95.5 cm/s Mitral E to A Ratio 0.7 MV Deceleration Time 279.6 ms MV E' Velocity 5.1 cm/s Mitral E to MV E' Ratio 13.2 TR Peak Velocity 279.1 cm/s TR Peak Gradient 31.2 mmHg Right Ventricular Systolic Press 36.1 mmHg FINDINGS Left Ventricle Left ventricular ejection fraction is estimated at 60-65 %. Left ventricular cavity size normal. Borderline left ventricular hypertrophy. Right Ventricle Normal right ventricular size and function. Mild pulmonary hypertension. Right Atrium Normal right atrial size. Left Atrium Mildly increased left atrial volume. No evidence for an atrial septal defect. Mitral Valve Mitral valve thickened. Mild mitral annular calcification. Mild mitral regurgitation. Aortic Valve TAVR DONE IN 2019. Peak gradient of 28 mmHg, and mean gradient of 13 mm/Hg, no aortic valve stenosis or regurgitation. Tricuspid Valve Mild tricuspid regurgitation. Pulmonic Valve Trace pulmonic regurgitation. Pericardium Normal pericardium. Aorta Normal size aortic root and proximal ascending aorta. CONCLUSIONS #1. Normal left ventricle size and function with borderline hypertrophy #2. Mitral valve calcification with mild regurgitation #3. Prosthetic tissue aortic valve with mild gradient Previewed by: Dr. Juan Carlos Vergara MD (Electronically Signed) Final Date: 23 December 2021 10:31
== END | disposition home or self-care (01) ==
LOC: RADUSWWP 12:45
PROVIDERS: ATTEND Internal Medicine
DX: I65.23 Occlusion and stenosis of bilateral carotid arteries (principal)
CPT/HCPCS: 93306; 93880

== ENCOUNTER → 2022-02-10 | Outpatient (CLI) | payer MEDICARE, BC ==
--- NOTE | 2022-02-11 17:59 | MM ---
Reason for Exam: Screening (asymptomatic). Last mammogram was performed 1 year(s) and 8 month(s) ago. Patient History: Menarche at age 14. First Full-Term at age 27. Postmenopausal. Risk Values: Mackenzie 5 year model risk: 2.0%. NCI Lifetime model risk: 4.5%. Prior Study Comparison: 08/17/2016 Bilateral Screening Mammogram, [facility]. 10/01/2017 Bilateral Screening Mammogram, [facility]. 06/14/2020 Bilateral Screening Mammogram, [facility]. Tissue Density: There are scattered fibroglandular densities. Findings: Analyzed By CAD. There is no suspicious group of microcalcifications or new suspicious mass in either breast. Chronic nodularity in the left breast. Stable benign calcifications. No significant change from prior examinations. Overall Assessment: Benign, BI-RAD 2 Management: Screening Mammogram of both breasts in 1 year. A clinical breast exam by your physician is recommended on an annual basis and results should be correlated with mammographic findings. Electronically signed and approved by: Glenroy Ruiz D.O.
== END | disposition home or self-care (01) ==
LOC: RADMAMWWP 14:45
PROVIDERS: ATTEND Family Medicine
DX: Z12.31 Encounter for screening mammogram for malignant neoplasm of breast (principal); R92.1 Mammographic calcification found on diagnostic imaging of breast; Z78.0 Asymptomatic menopausal state
CPT/HCPCS: 77063; 77067

== ENCOUNTER 2022-10-18 19:43 | Emergency (ER) | payer MEDICARE, BC ==
[2022-10-18 20:05] VITALS: BP 154/72; PULSE 70; RESP 18; TEMP 98.1
--- NOTE | 2022-10-18 20:29 | ED ---
Fall HPI - General Chief Complaint: Fall Stated Complaint: Fall Time Seen by Provider: 10/18/22 20:07 Source: patient, family, RN notes reviewed Mode of arrival: wheelchair - History of Present Illness Initial Comments: This is a 77-year-old female who presents to the emergency department for a fall. Patient states that she tripped over something in her house, and when she fell she landed on her right knee. Currently complaining of pain and swelling to the right knee. She has been trying to ice the knee with only minimal relief in symptoms, however she has not yet taken any Tylenol. States that she has some numbness in the middle 3 toes and is worried about injuring a tendon. She is using a knee brace and is still able to walk on it, but feels like her knee brace is not very supportive. Denies hitting her head or sustaining any other injuries. She does take Plavix. Denies any fevers, chills, sore throat, cough, dyspnea, chest pain, palpitations, abdominal pain, nausea, vomiting, diarrhea, back pain, or headaches. MD Complaint: fall Fall Witnessed: yes, by family Place Fall Occurred: home Loss of Consciousness: none Prolonged Down Time?: no Location - Extremities: Right: Knee - Related Data Home Medications Medication Instructions Recorded Confirmed Colesevelam [Welchol] 1,250 mg PO BID@0900,1600 03/03/14 10/18/22 amLODIPine BESYLATE [Norvasc] 5 mg PO DAILY@0903/03/14 10/18/22 atenoloL [Tenormin] 25 mg PO BID@0900,209903/03/14 10/18/22 Amiodarone [Cordarone] 200 mg PO DAILY@89905/19/17 10/18/22 Atorvastatin [Lipitor] 5 mg PO HS@209905/19/17 10/18/22 Furosemide [Lasix] 60 mg PO DAILY@89904/08/18 10/18/22 Aspirin EC [Ecotrin Low Dose] 81 mg PO DAILY@89907/13/18 10/18/22 Calcitonin Nasal [Fortical 1 spray NASAL DAILY@89907/13/18 10/18/22 (Miacalcin)] Carboxymethyl/Gly/Poly80/Pf 1 dropper BOTH EYES QID PRN 07/13/18 10/18/22 [Refresh Optive Stanley-3 Drops] EPINEPHrine [Epipen 2-Sam] 0.3 mg IM ONCE PRN 07/13/18 10/18/22 Meclizine [Antivert] 6.25 mg PO Q6H PRN 07/13/18 10/18/22 Triamcinolone Acetonide [Nasacort] 2 spray EA NOSTRIL BID PRN 07/13/18 10/18/22 amLODIPine [Norvasc] 2.5 mg PO HS 07/13/18 10/18/22 Clopidogrel [Plavix] 75 mg PO DAILY@0900 02/27/20 10/18/22 Omeprazole 40 mg PO DAILY@0902/27/20 10/18/22 Cetirizine HCl [Zyrtec] 2.5 mg PO BID@0900,209904/11/20 10/18/22 Olmesartan [Benicar] 20 mg PO DAILY@1300 04/11/20 10/18/22 Potassium Chloride [Klor-Con 10] 5 meq PO HS@209904/11/20 10/18/22 Potassium Chloride [Klor-Con 10] 10 meq PO DAILY@0900 04/11/20 10/18/22 Calcium/Magnesium/Vit D3/[place] 1 cap PO DAILY@0910/18/22 10/18/22 [Calcium-Mag Oxide-Vit D3 Sftgl] Cholecalciferol [Vitamin D3 (10 5 mcg PO DAILY@1200 10/18/22 10/18/22 Mcg = 400 Iu)] Cholecalciferol [Vitamin D3 (10 10 mcg PO DAILY@1600 10/18/22 10/18/22 Mcg = 400 Iu)] Nystatin 100,000Unit/gm Cream 1 applic TOPICAL BID 10/18/22 10/18/22 [Mycostatin Cream] Allergies Allergy/AdvReac Type Severity Reaction Status Date / Time iodine Allergy Severe Anaphylaxis Verified 10/18/22 21:50 shellfish derived Allergy Severe Anaphylaxis Verified 10/18/22 21:50 butorphanol tartrate Allergy Unknown Verified 10/18/22 21:50 [From Stadol] caffeine Allergy Unknown Verified 10/18/22 21:50 cefaclor [From Ceclor] Allergy Unknown Verified 10/18/22 21:50 cefpodoxime proxetil Allergy Unknown Verified 10/18/22 21:50 [From Vantin] cefuroxime axetil Allergy Unknown Verified 10/18/22 21:50 [From Ceftin] ciprofloxacin [From Cipro] Allergy Unknown Verified 10/18/22 21:50 ciprofloxacin HCl Allergy Unknown Verified 10/18/22 21:50 [From Cipro] doxepin Allergy Unknown Verified 10/18/22 21:50 Iodinated Contrast Media Allergy Unknown Verified 10/18/22 21:50 [Iodinated Contrast Media - IV Dye] ketoprofen [From Oruvail] Allergy Unknown Verified 10/18/22 21:50 lidocaine Allergy Unknown Verified 10/18/22 21:50 [From Terramycin (with lidocaine)] loratadine [From Claritin] Allergy Unknown Verified 10/18/22 21:50 methylprednisolone sodium Allergy Unknown Verified 10/18/22 21:50 succinate [From Solu-Medrol] metronidazole [From Flagyl] Allergy Unknown Verified 10/18/22 21:50 ofloxacin [From Floxin] Allergy Unknown Verified 10/18/22 21:50 oxycodone HCl [From Percocet] Allergy Unknown Verified 10/18/22 21:50 oxytetracycline Allergy Unknown Verified 10/18/22 21:50 [From Terramycin (with lidocaine)] penicillin V potassium Allergy Rash/Hives Verified 10/18/22 21:50 [From Pen-Vee K] pitavastatin calcium Allergy Unknown Verified 10/18/22 21:50 [From Livalo] propoxyphene napsylate Allergy Unknown Verified 10/18/22 21:50 [From Darvocet-N] quinapril HCl [From Accupril] Allergy Unknown Verified 10/18/22 21:50 solifenacin succinate Allergy Unknown Verified 10/18/22 21:50 [From Vesicare] Sulfa (Sulfonamide Allergy Unknown Verified 10/18/22 21:50 Antibiotics) Tetanus Vaccines and Toxoid Allergy Unknown Verified 10/18/22 21:50 [Tetanus Vaccines & Toxoid] nylon Allergy Unknown Uncoded 10/18/22 19:54 rheomacrodex Allergy Unknown Uncoded 10/18/22 19:54 trianlin Allergy Unknown Uncoded 10/18/22 19:54 Review of Systems ROS Statement: Those systems with pertinent positive or pertinent negative responses have been documented in the HPI. ROS Other: All systems not noted in ROS Statement are negative. Past Medical History Past Medical History: Atrial Fibrillation, CVA/TIA, Deep Vein Thrombosis (DVT), GERD/Reflux, Hyperlipidemia, Hypertension, Myocardial Infarction ([place]), Pulmonary Embolus (PE), Rheumatoid Arthritis (RA) Additional Past Medical History / Comment(s): Hypoglycemia, Reynauds Syndrome. Hx ulcers, kidney stones, Shingles, H Pylori. Hiatal Hernia, [place] Palsy, Sciatcia. Hx Slight TIA, no damage. TMJ, Shingles Last Myocardial Infarction Date:: 2017 History of Any Multi-Drug Resistant Organisms: None Reported Past Surgical History: Appendectomy, Back Surgery, Cardiac Valve Replacement, Heart Catheterization With Stent, Joint Replacement, Orthopedic Surgery Additional Past Surgical History / Comment(s): Cardiac Valve Replacement 10/05. Carpal tunnel sx, hemmorhoid sx, miscarriage, bilateral carotid artery surgery, right radial heart cath with 2 stents ,lithotripsy, right shoulder surgery. BACK SX X 3 PLUS CAGE AND SCREWS, Dand C, aortic valve replacement with stent in abdominal area, sinus, stent to left upper leg (2020) , left thumb trigger finger, right index finger trigger sc 01/2022. Past Anesthesia/Blood Transfusion Reactions: Motion Sickness, Postoperative Nausea & Vomiting (PONV) Additional Past Anesthesia/Blood Transfusion Reaction / Comment(s): "Sensitive to anesthesia, a little bit goes a long way." Date of Last Stent Placement:: 05/09/17 Past Psychological History: No Psychological Hx Reported Smoking Status: Former smoker Past Alcohol Use History: None Reported Past Drug Use History: None Reported - Past Family History Mother Family Medical History: Cancer General Exam Limitations: no limitations General appearance: alert, in no apparent distress Head exam: Present: atraumatic, normocephalic, normal inspection Respiratory exam: Present: normal lung sounds bilaterally. Absent: respiratory distress, wheezes, rales, rhonchi, stridor Cardiovascular Exam: Present: regular rate, normal rhythm, normal heart sounds. Absent: systolic murmur, diastolic murmur, rubs, gallop, clicks Extremities exam: Present: other (Mild tenderness and swelling to the right patella and right popliteal fossa. 2+ DP and TP pulses and capillary refill less than 1 second.) Neurological exam: Present: alert, oriented X3, CN II-XII intact Psychiatric exam: Present: normal affect, normal mood Skin exam: Present: warm, dry, intact, normal color. Absent: rash Course Vital Signs 10/18/22 19:54 Temperature 98.1 F Pulse Rate 70 Respiratory 18 Rate Blood Pressure 154/72 O2 Sat by Pulse 98 Oximetry Medical Decision Making - Medical Decision Making This is a 77-year-old female who presents to the emergency department for right knee pain after a fall. Was pt. sent in by a medical professional or institution? @ -No Did you speak to anyone other than the patient for history? @ -No Did you review nursing and triage notes? @ -Yes, and I agree, it is accurate with regards to the patient's symptoms. Were old charts reviewed? @ -No Differential Diagnosis? @ -Differential Knee Injury: Fracture, dislocation, contusion, sprain, joint effusion, ACL/PCL/MCL injury, meniscus injury, this is not meant to be an all-inclusive list. X-rays interpreted by me (1pt min.)? @ -X-ray of the right knee obtained. My interpretation identifies no evidence of any fractures or dislocations. What testing was considered but not performed? (CT, X-rays, U/S, labs)? Why? @ -None What meds were considered but not given? Why? @ -None Did you discuss the management of the patient with other professionals? @ -No Did you reconcile home meds? @ -No Was smoking cessation discussed for >3mins.? @ -No Was critical care preformed (if so, how long)? @ -No Were there social determinants of health that impacted care today? How? (Homelessness, low income, unemployed, alcoholism, drug addiction, transportation, low edu. Level, literacy, decrease access to med. care, fpc, rehab)? @ -No Was there de-escalation of care discussed even if they declined? (Discuss DNR or withdrawal of care, Hospice)? @ -No What co-morbidities impacted this encounter? (DM, HTN, Smoking, COPD, CAD, Can cer, CVA, Hep., AIDS, mental health diagnosis, sleep apnea, morbid obesity)? @ -Morbid obesity, RA Was patient admitted / discharged? @ -Discharged. X-rays of the right knee obtained revealing no acute findings. Symptoms most likely related to a contusion. However, injuries to the ligaments, tendons, and meniscus cannot be ruled out. Discussed with the patient that she'll need to follow up with orthopedics. Advised she take the Tylenol that she has at home. She is also advised to keep the leg elevated and apply ice for 15-20 minutes every 2-3 hours. She was provided with a knee brace to be used as needed. Information for orthopedic follow-up was provided as well. Undiagnosed new problem with uncertain prognosis? @ -None Drug Therapy requiring intensive monitoring for toxicity (Heparin, Nitro, Insulin, Cardizem)? @ -None Were any procedures done? @ -None Diagnosis/symptom? @ -Right knee pain, fall Acute, or Chronic, or Acute on Chronic? @ -Acute Uncomplicated (without systemic symptoms) or Complicated (systemic symptoms)? @ -Uncomplicated Side effects of treatment? @ -None Exacerbation, Progression, or Severe Exacerbation] @ -Not applicable Poses a threat to life or bodily function? @ -No Return precautions reviewed in depth, the patient is instructed to return to the emergency department with any new, worsening, or concerning symptoms. Patient verbalized understanding. This case was discussed in detail with the attending ED physician, Dr. Durbin. Presentation, findings, and treatment plan discussed in detail as well. - Radiology Data Radiology results: report reviewed, image reviewed Disposition Clinical Impression: Fall, Right knee pain Disposition: HOME SELF-CARE Instructions (If sedation given, give patient instructions): Fall Prevention for Older Adults (ED), Knee Immobilizer (ED) Additional Instructions: Return to the emergency department with any new, worsening, or concerning symptoms. Continue to keep the leg elevated and apply ice for 15-20 minutes every 2-3 hours. Take Tylenol as needed for pain relief. You can also use the knee immobilizer as needed. Contact orthopedics as listed below for further evaluation. Is patient prescribed a controlled substance at d/c from ED?: No Referrals: Hakeem Torres DO [Primary Care Provider] - 1-2 days Wilberto Niño DO [Doctor of Osteopathic Medicine] - 1-2 days
--- NOTE | 2022-10-18 21:57 | XR ---
EXAMINATION TYPE: XR knee complete RT DATE OF EXAM: 10/18/2022 8:43 PM INDICATION: Patient age:Female; 77 years old; Reason for study: Fall; PHH. COMPARISON: No relevant priors TECHNIQUE: The Right knee(s) was examined in 3 projections. Frontal, lateral and oblique. FINDINGS: No evidence of any acute osseous pathology, joint space narrowing, soft tissue swelling, or joint effusion is noted. Vascular calcifications are noted. IMPRESSION: 1. No acute osseous pathology.
== END 2022-10-18 22:31 | disposition home or self-care (01) ==
LOC: EC 19:43
DX: M25.561 Pain in right knee (principal); K21.9 Gastro-esophageal reflux disease without esophagitis; E78.5 Hyperlipidemia, unspecified; I48.91 Unspecified atrial fibrillation; I63.9 Cerebral infarction, unspecified; I10 Essential (primary) hypertension; Z79.899 Other long term (current) drug therapy; Z90.89 Acquired absence of other organs; Z95.5 Presence of coronary angioplasty implant and graft; Z79.82 Long term (current) use of aspirin; Z79.02 Long term (current) use of antithrombotics/antiplatelets; Z95.2 Presence of prosthetic heart valve; Z88.7 Allergy status to serum and vaccine; Z88.1 Allergy status to other antibiotic agents; Z88.2 Allergy status to sulfonamides; Z91.041 Radiographic dye allergy status; Z88.5 Allergy status to narcotic agent; Z91.018 Allergy to other foods; Z88.4 Allergy status to anesthetic agent; Z88.8 Allergy status to other drugs, medicaments and biological substances; Z91.048 Other nonmedicinal substance allergy status; Z91.013 Allergy to seafood; Z87.442 Personal history of urinary calculi; Z87.891 Personal history of nicotine dependence; W18.09XA Striking against other object with subsequent fall, initial encounter; Y93.89 Activity, other specified; Y92.009 Unspecified place in unspecified non-institutional (private) residence as the place of occurrence of the external cause
CPT/HCPCS: 73562; 99283; L1830

== ENCOUNTER → 2022-11-10 | Outpatient (CLI) | payer MEDICARE, BC ==
[2022-11-10 20:10] LABS: Basophils # (A) 0.04 X 10*3/uL (0.00-0.10); Basophils % (A) 0.8 %; Eosinophils # (A) 0.21 X 10*3/uL (0.04-0.35); HCT 42.3 % (37.2-46.3); HGB 13.3 g/dL (12.0-15.0); Immature Grans, Automated 0.4 %; Lymphocytes # (A) 1.31 X 10*3/uL (0.90-5.00); MCH 31.3 pg (27.0-32.0); MCHC 31.4 g/dL (32.0-37.0); MCV 99.5 fL (80.0-97.0); Mean Platelet Volume 10.4 fL (9.5-12.2); Monocytes # (A) 0.54 X 10*3/uL (0.20-1.00); Monocytes % (A) 10.3 %; NRBC Per 100 WBC 0 /100 WBCS (0.0-0.0); Neutrophils # (A) 3.11 X 10*3/uL (1.80-7.70); Neutrophils % (A) 59.5 %; Platelet Count 182 X 10*3/uL (140-440); RBC 4.25 X 10*6/uL (4.10-5.20); RDW 14.1 % (11.5-14.5); WBC 5.23 X 10*3/uL (4.50-10.00)
[2022-11-10 20:47] LABS: African American GFR (CKD) 63.8 (60.0-200.0); Albumin 4.5 g/dL (3.8-4.9); Albumin/Globulin Ratio 1.55 (1.60-3.17); Anion Gap 13.9 mmol/L (10.00-18.00); BUN/Creat Ratio 45.6 Ratio (12.00-20.00); Blood Urea Nitrogen 45.6 mg/dL (9.0-27.0); Calcium 9.4 mg/dL (8.7-10.3); Carbon Dioxide 25.1 mmol/L (20.0-27.5); Globulin 2.9 g/dL (1.6-3.3); Non-African American GFR(CKD) 55.1 (60.0-200.0); Phosphorus 3.8 mg/dL (2.4-5.1); Potassium 4.3 mmol/L (3.5-5.5); Total Bilirubin 0.3 mg/dL (0.30-1.20); Total Protein 7.4 g/dL (6.2-8.2)
[2022-11-10 20:56] LABS: Appearance,Urine Clear (Clear); Bilirubin,Urine Negative (Negative); Blood,Urine Negative (Negative); Color,Urine Yellow (Yellow); Ketones,Urine Negative (Negative); Nitrite,Urine Negative (Negative); PH, Urine 5.5 (5.0-8.0); Specific Gravity,Urine 1.019 (1.001-1.030); Urobilinogen,Urine 0.2 (0.2,1.0)
== END | disposition home or self-care (01) ==
LOC: LABWHC1 13:14
PROVIDERS: ATTEND Family Medicine
DX: N17.9 Acute kidney failure, unspecified (principal)
CPT/HCPCS: 36415; 80053; 81003; 84100; 84156; 85025

== ENCOUNTER → 2022-12-15 | Outpatient (CLI) | payer MEDICARE, BC ==
--- NOTE | 2022-12-16 06:23 | MR ---
EXAMINATION TYPE: MR knee RT wo con DATE OF EXAM: 12/15/2022 COMPARISON: Right knee x-ray October 18, 2022 HISTORY: Rt knee pain, swelling, and gives out TECHNIQUE: Multiplanar, multisequence images of the knee is performed without IV contrast. FINDINGS: MEDIAL MENISCUS: Truncated appearance posterior horn with abnormal horizontal oblique signal extendin g to articular surface. LATERAL MENISCUS: Abnormal signal anterior horn extends towards superior surface. CRUCIATE LIGAMENTS: The posterior cruciate ligament is intact and unremarkable. Significant tear of t he anterior cruciate ligament at its substances noted COLLATERAL LIGAMENTS: The medial collateral ligament and lateral collateral ligament complex are inta ct and unremarkable. EXTENSOR MECHANISM: Visualized quadriceps and patellar tendons are intact. EFFUSION: Moderate size suprapatellar joint effusion. POPLITEAL CYST: Small multi septated popliteal/davis cyst sagittal image 9. TRICOMPARTMENT SPACES: Mild/moderate tricompartment joint space loss and mild spurring. CARTILAGE: Tricompartment articular cartilage fairly well-preserved. BONE MARROW SIGNAL: No focal abnormal marrow signal is appreciated. OTHER: No additional significant abnormality is appreciated. IMPRESSION: 1. Full-thickness tear posterior horn medial meniscus. 2. At least intrasubstance suspected full-thickness tear anterolateral horn lateral meniscus. 3. Significant tearing of the ACL. 4. Moderate-sized suprapatellar joint effusion. 5. Mild to moderate tricompartment degenerative changes as detailed above. 6. Small multiseptated popliteal cyst.
== END | disposition home or self-care (01) ==
LOC: RADMRIMAIN 18:00
PROVIDERS: ATTEND Student in an Organized Health Care Education/Training Program
DX: S83.241A Other tear of medial meniscus, current injury, right knee, initial encounter (principal); M17.11 Unilateral primary osteoarthritis, right knee; T14.8XXA Other injury of unspecified body region, initial encounter; M25.461 Effusion, right knee; M71.21 Synovial cyst of popliteal space [Baker], right knee

== ENCOUNTER 2023-01-03 17:56 | Emergency (ER) | payer MEDICARE, BC ==
[2023-01-03 18:50] VITALS: TEMP 97.6
[2023-01-03] MEDS ORDERED: TRANEXAMIC ACID 1,000 MG/10 ML VIAL IRRIGATION ONE (19:11)
--- NOTE | 2023-01-03 19:39 | ED ---
General Adult HPI - General Chief complaint: Wound/Laceration Stated complaint: Lip injury Time Seen by Provider: 01/03/23 18:51 Source: patient, RN notes reviewed Mode of arrival: ambulatory Limitations: no limitations - History of Present Illness Initial comments: 77-year-old female presents the emergency department with a chief complaint of lip laceration. Patient reports that the laceration to her lower lip that has been bleeding on and off for the last 3 days. She's been trying to put petroleum jelly on it with symptomatic relief. She denies any injury or trauma. She does report that she does take plavix. - Related Data Home Medications Medication Instructions Recorded Confirmed Colesevelam [Welchol] 1,250 mg PO BID@0900,1600 03/03/14 10/18/22 amLODIPine BESYLATE [Norvasc] 5 mg PO DAILY@0900 03/03/14 10/18/22 atenoloL [Tenormin] 25 mg PO BID@0900,2100 03/03/14 10/18/22 Amiodarone [Cordarone] 200 mg PO DAILY@0900 05/19/17 10/18/22 Atorvastatin [Lipitor] 5 mg PO HS@209905/19/17 10/18/22 Furosemide [Lasix] 60 mg PO DAILY@0900 04/08/18 10/18/22 Aspirin EC [Ecotrin Low Dose] 81 mg PO DAILY@0900 07/13/18 10/18/22 Calcitonin Nasal [Fortical 1 spray NASAL DAILY@0907/13/18 10/18/22 (Miacalcin)] Carboxymethyl/Gly/Poly80/Pf 1 dropper BOTH EYES QID PRN 07/13/18 10/18/22 [Refresh Optive Stanley-3 Drops] EPINEPHrine [Epipen 2-Sam] 0.3 mg IM ONCE PRN 07/13/18 10/18/22 Meclizine [Antivert] 6.25 mg PO Q6H PRN 07/13/18 10/18/22 Triamcinolone Acetonide [Nasacort] 2 spray EA NOSTRIL BID PRN 07/13/18 10/18/22 amLODIPine [Norvasc] 2.5 mg PO HS 07/13/18 10/18/22 Clopidogrel [Plavix] 75 mg PO DAILY@0900 02/27/2010/18/23 Omeprazole 40 mg PO DAILY@89902/27/20 10/18/22 Cetirizine HCl [Zyrtec] 2.5 mg PO BID@09,209904/11/20 10/18/22 Olmesartan [Benicar] 20 mg PO DAILY@1300 04/11/20 10/18/22 Potassium Chloride [Klor-Con 10] 5 meq PO HS@209904/11/20 10/18/22 Potassium Chloride [Klor-Con 10] 10 meq PO DAILY@89904/11/20 10/18/22 Calcium/Magnesium/Vit D3/Francitas 1 cap PO DAILY@89910/18/22 10/18/22 [Calcium-Mag Oxide-Vit D3 Sftgl] Cholecalciferol [Vitamin D3 (10 5 mcg PO DAILY@1200 10/18/22 10/18/22 Mcg = 400 Iu)] Cholecalciferol [Vitamin D3 (10 10 mcg PO DAILY@1600 10/18/22 10/18/22 Mcg = 400 Iu)] Nystatin 100,000Unit/gm Cream 1 applic TOPICAL BID 10/18/22 10/18/22 [Mycostatin Cream] Allergies Allergy/AdvReac Type Severity Reaction Status Date / Time iodine Allergy Severe Anaphylaxis Verified 10/18/22 21:50 shellfish derived Allergy Severe Anaphylaxis Verified 10/18/22 21:50 butorphanol tartrate Allergy Unknown Verified 10/18/22 21:50 [From Stadol] caffeine Allergy Unknown Verified 10/18/22 21:50 cefaclor [From Ceclor] Allergy Unknown Verified 10/18/22 21:50 cefpodoxime proxetil Allergy Unknown Verified 10/18/22 21:50 [From Vantin] cefuroxime axetil Allergy Unknown Verified 10/18/22 21:50 [From Ceftin] ciprofloxacin [From Cipro] Allergy Unknown Verified 10/18/22 21:50 ciprofloxacin HCl Allergy Unknown Verified 10/18/22 21:50 [From Cipro] doxepin Allergy Unknown Verified 10/18/22 21:50 Iodinated Contrast Media Allergy Unknown Verified 10/18/22 21:50 [Iodinated Contrast Media - IV Dye] ketoprofen [From Oruvail] Allergy Unknown Verified 10/18/22 21:50 lidocaine Allergy Unknown Verified 10/18/22 21:50 [From Terramycin (with lidocaine)] loratadine [From Claritin] Allergy Unknown Verified 10/18/22 21:50 methylprednisolone sodium Allergy Unknown Verified 10/18/22 21:50 succinate [From Solu-Medrol] metronidazole [From Flagyl] Allergy Unknown Verified 10/18/22 21:50 ofloxacin [From Floxin] Allergy Unknown Verified 10/18/22 21:50 oxycodone HCl [From Percocet] Allergy Unknown Verified 10/18/22 21:50 oxytetracycline Allergy Unknown Verified 10/18/22 21:50 [From Terramycin (with lidocaine)] penicillin V potassium Allergy Rash/Hives Verified 10/18/22 21:50 [From Pen-Vee K] pitavastatin calcium Allergy Unknown Verified 10/18/22 21:50 [From Livalo] propoxyphene napsylate Allergy Unknown Verified 10/18/22 21:50 [From Darvocet-N] quinapril HCl [From Accupril] Allergy Unknown Verified 10/18/22 21:50 solifenacin succinate Allergy Unknown Verified 10/18/22 21:50 [From Vesicare] Sulfa (Sulfonamide Allergy Unknown Verified 10/18/22 21:50 Antibiotics) Tetanus Vaccines and Toxoid Allergy Unknown Verified 10/18/22 21:50 [Tetanus Vaccines & Toxoid] nylon Allergy Unknown Uncoded 10/18/22 19:54 rheomacrodex Allergy Unknown Uncoded 10/18/22 19:54 trianlin Allergy Unknown Uncoded 10/18/22 19:54 Review of Systems ROS Statement: Those systems with pertinent positive or pertinent negative responses have been documented in the HPI. ROS Other: All systems not noted in ROS Statement are negative. Past Medical History Past Medical History: Atrial Fibrillation, CVA/TIA, Deep Vein Thrombosis (DVT), GERD/Reflux, Hyperlipidemia, Hypertension, Myocardial Infarction (CT), Pulmonary Embolus (PE), Rheumatoid Arthritis (RA) Additional Past Medical History / Comment(s): Hypoglycemia, Reynauds Syndrome. Hx ulcers, kidney stones, Shingles, H Pylori. Hiatal Hernia, [place] Palsy, Sciatcia. Hx Slight TIA, no damage. TMJ, Shingles Last Myocardial Infarction Date:: 2017 History of Any Multi-Drug Resistant Organisms: None Reported Past Surgical History: Appendectomy, Back Surgery, Cardiac Valve Replacement, Heart Catheterization With Stent, Joint Replacement, Orthopedic Surgery Additional Past Surgical History / Comment(s): Cardiac Valve Replacement 10/05. Carpal tunnel sx, hemmorhoid sx, miscarriage, bilateral carotid artery surgery, right radial heart cath with 2 stents ,lithotripsy, right shoulder surgery. BACK SX X 3 PLUS CAGE AND SCREWS, Dand C, aortic valve replacement with stent in abdominal area, sinus, stent to left upper leg (2020) , left thumb trigger finger, right index finger trigger sc 01/2022. Past Anesthesia/Blood Transfusion Reactions: Motion Sickness, Postoperative Nausea & Vomiting (PONV) Additional Past Anesthesia/Blood Transfusion Reaction / Comment(s): "Sensitive to anesthesia, a little bit goes a long way." Date of Last Stent Placement:: 05/09/17 Past Psychological History: No Psychological Hx Reported Smoking Status: Former smoker Past Alcohol Use History: None Reported Past Drug Use History: None Reported - Past Family History Mother Family Medical History: Cancer General Exam - General Exam Comments Initial Comments: General: Alert, in no acute distress Head: atraumatic normocephalic. Eyes PERRL, EOMI intact, mucous membranes moist, small dried r lesion on the lower lip without active bleeding. No airway involvement. Respiratory: Lungs clear to auscultation bilaterally Cardiovascular: Heart rate regular rate and rhythm Abdominal: Soft without guarding or rebound Extremities: Normal inspection with full range of motion and normal capillary refill Neuroogic: alert and oriented 3, CN II-XII intact, able to ambulate with steady gait Skin: warm dry and intact with normal color Limitations: no limitations Course Vital Signs 01/03/23 01/03/23 18:46 19:48 Temperature 97.6 F Pulse Rate 70 66 Respiratory 20 18 Rate Blood Pressure 161/72 120/72 O2 Sat by Pulse 99 Oximetry - Reevaluation(s) Reevaluation #1: 01/03/23 19:10 initial history and physical exam performed. Lower lip without any active bleeding 01/03/23 19:38 Patient reevaluated. Patient without any active bleeding Medical Decision Making - Medical Decision Making Was pt. sent in by a medical professional or institution (, PA, [employer], urgent care, hospital, or [facility]...) When possible be specific @ -[No] Did you speak to anyone other than the patient for history (EMS, parent, family, police, friend...)? What history was obtained from this source @ -[No] Did you review nursing and triage notes (agree or disagree)? Why? @ -[I reviewed and agree with nursing and triage notes] Were old charts reviewed (outside hosp., previous admission, EMS record, old EKG, old radiological studies, urgent care reports/EKG's, [facility] records)? Report findings @ -[No old charts were reviewed] Differential Diagnosis (chest pain, altered mental status, abdominal pain women, abdominal pain men, vaginal bleeding, weakness, fever, dyspnea, syncope, hea dache, dizziness, GI bleed, back pain, seizure, CVA, palpatations, mental health, musculoskeletal)? @ -[not applicable] EKG interpreted by me (3pts min.). @ -[As above] X-rays interpreted by me (1pt min.). @ -[None done] CT interpreted by me (1pt min.). @ -[None done] U/S interpreted by me (1pt. min.). @ -[None done] What testing was considered but not performed or refused? (CT, X-rays, U/S, labs)? Why? @ -[None] What meds were considered but not given or refused? Why? @ -[None] Did you discuss the management of the patient with other professionals (professionals i.e. , PA, [employer], lab, RT, psych nurse, social worker clinical, automobile wrecker, teacher, precinct commanding officer, rn case management)? Give summary @ -[No] Was smoking cessation discussed for >3mins.? @ -[No] Was critical care preformed (if so, how long)? @ -[No] Were there social determinants of health that impacted care today? How? (Homelessness, low income, unemployed, alcoholism, drug addiction, transportation, low edu. Level, literacy, decrease access to med. care, half-way, rehab)? @ -[No] Was there de-escalation of care discussed even if they declined (Discuss DNR or withdrawal of care, Hospice)? DNR status @ -[No] What co-morbidities impacted this encounter? (DM, HTN, Smoking, COPD, CAD, Cancer, CVA, ARF, Chemo, Hep., AIDS, mental health diagnosis, sleep apnea, morbid obesity)? @ -[None] Was patient admitted / discharged? Hospital course, mention meds given and route, prescriptions, significant lab abnormalities, going to OR and other pertinent info. @ -Discharged. This is a 77-year-old female who presents to the emergency department with a chief complaint of lip bleeding. No active bleeding during the course of the ED. Patient is requesting silver nitrate to be applied to the area. Patient discharged in stable condition case discussed with Dr. Raven CASEY who agrees with plan of care Undiagnosed new problem with uncertain prognosis? @ -[No] Drug Therapy requiring intensive monitoring for toxicity (Heparin, Nitro, Insulin, Cardizem)? @ -[No] Were any procedures done? @ -[No] Diagnosis/symptom? @ -lip laceration Acute, or Chronic, or Acute on Chronic? @ -acute Uncomplicated (without systemic symptoms) or Complicated (systemic symptoms)? @ -uncomplicated Side effects of treatment? @ -[No] Exacerbation, Progression, or Severe Exacerbation? @ -[No] Poses a threat to life or bodily function? How? (Chest pain, USA, CT, pneumonia, PE, COPD, DKA, ARF, appy, cholecystitis, CVA, Diverticulitis, Homicidal, Suicidal, threat to staff... and all critical care pts) @ -low likelihood Disposition Clinical Impression: Laceration Disposition: HOME SELF-CARE Condition: Stable Additional Instructions: These return to the nearest emergency department if symptoms worsen or persist Is patient prescribed a controlled substance at d/c from ED?: No Referrals: Hakeem Torres DO [Primary Care Provider] - 1-2 days Time of Disposition: 19:38
[2023-01-03 19:49] VITALS: BP 120/72; PULSE 66; RESP 18
== END 2023-01-03 20:14 | disposition home or self-care (01) ==
LOC: EC 17:56
DX: S01.511A Laceration without foreign body of lip, initial encounter (principal); I48.91 Unspecified atrial fibrillation; I10 Essential (primary) hypertension; I25.2 Old myocardial infarction; E78.5 Hyperlipidemia, unspecified; K21.9 Gastro-esophageal reflux disease without esophagitis; Z79.899 Other long term (current) drug therapy; Z79.82 Long term (current) use of aspirin; Z88.5 Allergy status to narcotic agent; Z88.8 Allergy status to other drugs, medicaments and biological substances; Z91.018 Allergy to other foods; X58.XXXA Exposure to other specified factors, initial encounter
CPT/HCPCS: 99282

== ENCOUNTER → 2023-01-13 | Outpatient (CLI) | payer MEDICARE, BC ==
[2023-01-13 13:31] LABS: INR 0.9 (<1.2)
[2023-01-13 16:09] LABS: Basophils # (A) 0.04 X 10*3/uL (0.00-0.10); Basophils % (A) 0.7 %; Eosinophils # (A) 0.18 X 10*3/uL (0.04-0.35); Eosinophils % (A) 3.2 %; HCT 43.5 % (37.2-46.3); HGB 13.7 d/dL (12.0-15.0); Lymphocytes % (A) 23.2 %; MCH 30.9 pg (27.0-32.0); MCHC 31.5 d/dL (32.0-37.0); MCV 98.2 FL (80.0-97.0); Mean Platelet Volume 10.4 FL (9.5-12.2); Monocytes # (A) 0.52 X 10*3/uL (0.20-1.00); Monocytes % (A) 9.3 %; NRBC Per 100 WBC 0 X 10*3/uL (0.00-0.01); Neutrophils # (A) 3.55 X 10*3/uL (1.80-7.70); Neutrophils % (A) 63.2 %; Platelet Count 178 X 10*3/uL (140-440); RBC 4.43 X 10*6/uL (4.10-5.20); WBC 5.61 X 10*3/uL (4.50-10.00)
[2023-01-13 16:51] LABS: ALT 20 U/L (8-44); AST 23 U/L (13-35); Albumin 4.6 d/dL (3.8-4.9); Albumin/Globulin Ratio 1.44 Ratio (1.60-3.17); Alkaline Phosphatase 64 U/L (41-126); BUN/Creat Ratio 25.45 Ratio (12.00-20.00); Calcium 9.5 mg/dL (8.7-10.3); Carbon Dioxide 27.1 mmol/L (21.6-31.8); Chloride 100 mmol/L (96-109); Globulin 3.2 d/dL (1.6-3.3); Glucose 124 mg/dL (70-110); Potassium 4.6 mmol/L (3.5-5.5); Sodium 140 mmol/L (135-145); Total Bilirubin 0.5 mg/dL (0.3-1.2); Total Protein 7.8 d/dL (6.2-8.2)
[2023-01-13 21:03] LABS: Appearance,Urine Clear (Clear); Bilirubin,Urine Negative (Negative); Blood,Urine Negative (Negative); Color,Urine Yellow (Yellow); Ketones,Urine Negative (Negative); Nitrite,Urine Negative (Negative); Specific Gravity,Urine 1.013 (1.001-1.030); Urobilinogen,Urine 0.2 E.U./DL
[2023-01-13 21:10] LABS: Bacteria,Urine None Seen (None Seen)
== END | disposition home or self-care (01) ==
LOC: LABWHC1 12:16
PROVIDERS: ATTEND Student in an Organized Health Care Education/Training Program
DX: Z01.89 Encounter for other specified special examinations (principal)
CPT/HCPCS: 36415; 80053; 81001; 85025; 85610; 86850; 86900; 86901; 87070

== ENCOUNTER → 2023-01-22 | Outpatient (CLI) | payer MEDICARE, BC ==
[2023-01-22 16:23] LABS: Basophils # (A) 0.04 X 10*3/uL (0.00-0.10); Basophils % (A) 0.7 %; Eosinophils # (A) 0.16 X 10*3/uL (0.04-0.35); Eosinophils % (A) 2.9 %; HCT 43.5 % (37.2-46.3); HGB 13.8 d/dL (12.0-15.0); Lymphocytes # (A) 1.17 X 10*3/uL (0.90-5.00); Lymphocytes % (A) 21.1 %; MCH 30.8 pg (27.0-32.0); MCHC 31.7 d/dL (32.0-37.0); MCV 97.1 FL (80.0-97.0); Mean Platelet Volume 10.5 FL (9.5-12.2); Monocytes # (A) 0.61 X 10*3/uL (0.20-1.00); NRBC Per 100 WBC 0 X 10*3/uL (0.00-0.01); Neutrophils # (A) 3.55 X 10*3/uL (1.80-7.70); Neutrophils % (A) 63.9 %; Platelet Count 170 X 10*3/uL (140-440); RBC 4.48 X 10*6/uL (4.10-5.20); RDW 15.3 % (11.5-14.5); WBC 5.55 X 10*3/uL (4.50-10.00)
[2023-01-22 16:28] LABS: Appearance,Urine Clear (Clear); Bilirubin,Urine Negative (Negative); Blood,Urine Negative (Negative); Color,Urine Yellow (Yellow); Ketones,Urine Negative (Negative); Nitrite,Urine Negative (Negative); Specific Gravity,Urine 1.014 (1.001-1.030); Urobilinogen,Urine 0.2 E.U./DL
[2023-01-22 16:32] LABS: % Iron Saturation 20.12 (12.00-45.00); Albumin 4.8 d/dL (3.8-4.9); BUN/Creat Ratio 26.33 Ratio (12.00-20.00); Blood Urea Nitrogen 31.6 mg/dL (9.0-27.0); Carbon Dioxide 26.6 mmol/L (21.6-31.8); Chloride 100 mmol/L (96-109); Ferritin 74.2 ng/mL (10.0-291.0); Glucose 137 mg/dL (70-110); Iron 102 UG/DL (50-170); Magnesium 2.3 mg/dL (1.5-2.4); Phosphorus 4.9 mg/dL (2.4-5.1); Potassium 4.7 mmol/L (3.5-5.5); Sodium 140 mmol/L (135-145); Total Iron Binding Capacity 507 UG/DL (228-460); Uric Acid 9.2 mg/dL (2.9-7.7)
== END | disposition home or self-care (01) ==
LOC: LABWHC1 11:35
PROVIDERS: ATTEND Internal Medicine Nephrology
DX: E55.9 Vitamin D deficiency, unspecified (principal); N25.81 Secondary hyperparathyroidism of renal origin; M10.9 Gout, unspecified; D63.1 Anemia in chronic kidney disease; N18.31 Chronic kidney disease, stage 3a; N39.0 Urinary tract infection, site not specified; R80.9 Proteinuria, unspecified
CPT/HCPCS: 36415; 80048; 81003; 82040; 82043; 82306; 82570; 82728; 83540; 83550; 83735; 83970; 84100; 84550; 85025

== ENCOUNTER → 2023-02-02 | Outpatient (CLI) | payer MEDICARE, BC ==
[2023-02-02 19:56] LABS: INR <0.93 sec (0.93-1.11); Prothrombin Time 10.3 sec (9.9-11.9)
[2023-02-02 20:35] LABS: Basophils # (A) 0.03 X 10*3/uL (0.00-0.10); Basophils % (A) 0.6 %; Eosinophils # (A) 0.11 X 10*3/uL (0.04-0.35); Eosinophils % (A) 2.3 %; HGB 13.6 d/dL (12.0-15.0); Lymphocytes # (A) 1.06 X 10*3/uL (0.90-5.00); Lymphocytes % (A) 22.6 %; MCH 30.8 pg (27.0-32.0); MCHC 31.6 d/dL (32.0-37.0); MCV 97.5 FL (80.0-97.0); Mean Platelet Volume 10.3 FL (9.5-12.2); Monocytes # (A) 0.54 X 10*3/uL (0.20-1.00); Monocytes % (A) 11.5 %; NRBC Per 100 WBC 0 X 10*3/uL (0.00-0.01); Neutrophils # (A) 2.93 X 10*3/uL (1.80-7.70); Neutrophils % (A) 62.6 %; Platelet Count 183 X 10*3/uL (140-440); RBC 4.41 X 10*6/uL (4.10-5.20); RDW 15.3 % (11.5-14.5); WBC 4.69 X 10*3/uL (4.50-10.00)
[2023-02-03 02:47] LABS: ALT 24 U/L (8-44); AST 26 U/L (13-35); Albumin 4.7 d/dL (3.8-4.9); Albumin/Globulin Ratio 1.57 Ratio (1.60-3.17); Alkaline Phosphatase 59 U/L (41-126); BUN/Creat Ratio 27.82 Ratio (12.00-20.00); Blood Urea Nitrogen 30.6 mg/dL (9.0-27.0); Calcium 9.8 mg/dL (8.7-10.3); Carbon Dioxide 25.9 mmol/L (21.6-31.8); Chloride 103 mmol/L (96-109); Glucose 116 mg/dL (70-110); Potassium 4.6 mmol/L (3.5-5.5); Sodium 141 mmol/L (135-145); Total Bilirubin 0.3 mg/dL (0.3-1.2); Total Protein 7.7 d/dL (6.2-8.2)
[2023-02-03 02:50] LABS: Microalbumin Creatinine Ratio <14 mg/g Cr (0-30)
== END | disposition home or self-care (01) ==
LOC: LABWHC1 15:15
PROVIDERS: ATTEND Nurse Practitioner Family
DX: Z01.812 Encounter for preprocedural laboratory examination (principal); N18.31 Chronic kidney disease, stage 3a
CPT/HCPCS: 36415; 80053; 82043; 82570; 85025; 85610

== ENCOUNTER → 2023-02-12 | Outpatient (CLI) | payer MEDICARE, BC | END | disposition home or self-care (01) | LOC: LABPAT 11:12 | PROVIDERS: ATTEND Family Medicine | DX: Z01.812 Encounter for preprocedural laboratory examination (principal); N18.31 Chronic kidney disease, stage 3a | CPT/HCPCS: 86850; 86900; 86901; 87070 ==

== ENCOUNTER → 2023-06-21 | Outpatient (CLI) | payer MEDICARE, BC ==
[2023-06-21 18:27] LABS: Basophils # (A) 0.04 X 10*3/uL (0.00-0.10); Basophils % (A) 0.7 %; Eosinophils # (A) 0.24 X 10*3/uL (0.04-0.35); Eosinophils % (A) 4.1 %; HCT 42.4 % (37.2-46.3); HGB 13.1 g/dL (12.0-15.0); Lymphocytes # (A) 1.12 X 10*3/uL (0.90-5.00); Lymphocytes % (A) 19.3 %; MCH 30.1 pg (27.0-32.0); MCHC 30.9 g/dL (32.0-37.0); MCV 97.5 FL (80.0-97.0); Mean Platelet Volume 10.3 FL (9.5-12.2); Monocytes # (A) 0.71 X 10*3/uL (0.20-1.00); Monocytes % (A) 12.2 %; NRBC Per 100 WBC 0 X 10*3/uL (0.00-0.01); Neutrophils # (A) 3.67 X 10*3/uL (1.80-7.70); Neutrophils % (A) 63.4 %; Platelet Count 204 X 10*3/uL (140-440); RBC 4.35 X 10*6/uL (4.10-5.20); RDW 14.6 % (11.5-14.5)
[2023-06-22 02:59] LABS: % Iron Saturation 12.92 (12.00-45.00); Albumin 4.5 g/dL (3.8-4.9); BUN/Creat Ratio 29.92 Ratio (12.00-20.00); Blood Urea Nitrogen 38.9 mg/dL (9.0-27.0); Calcium 9.7 mg/dL (8.7-10.3); Carbon Dioxide 27.1 mmol/L (21.6-31.8); Chloride 98 mmol/L (96-109); Glucose 136 mg/dL (70-110); Iron 65 UG/DL (50-170); Magnesium 2.3 mg/dL (1.5-2.4); Phosphorus 4.5 mg/dL (2.4-5.1); Potassium 4.7 mmol/L (3.5-5.5); Sodium 139 mmol/L (135-145); Total Iron Binding Capacity 503 UG/DL (228-460); Uric Acid 7.7 mg/dL (2.9-7.7)
[2023-06-22 04:12] LABS: Appearance,Urine Clear (Clear); Bilirubin,Urine Negative (Negative); Blood,Urine Negative (Negative); Color,Urine Yellow (Yellow); Ketones,Urine Negative (Negative); Nitrite,Urine Negative (Negative); Urobilinogen,Urine 0.2 E.U./DL
== END | disposition home or self-care (01) ==
LOC: LABWHC1 14:33
PROVIDERS: ATTEND Nurse Practitioner Family
DX: E55.9 Vitamin D deficiency, unspecified (principal); N25.81 Secondary hyperparathyroidism of renal origin; N18.31 Chronic kidney disease, stage 3a; M10.9 Gout, unspecified; N39.0 Urinary tract infection, site not specified; D63.1 Anemia in chronic kidney disease
CPT/HCPCS: 36415; 80048; 81003; 82040; 82043; 82306; 82570; 82728; 83540; 83550; 83735; 83970; 84100; 84550; 85025

== ENCOUNTER 2023-11-07 05:56 | Emergency (ER) | payer MEDICARE, BC ==
--- NOTE | 2023-11-07 06:16 | ED ---
Back Pain HPI - General Chief Complaint: Back Pain/Injury Stated Complaint: Kidney stones Time Seen by Provider: 11/07/23 05:59 Source: patient, EMS, RN notes reviewed Mode of arrival: EMS Limitations: no limitations - History of Present Illness Initial Comments: This is a 78-year-old female who presents to the emergency department for right flank pain. States that this started 2 days ago. Pain has not moved since this time. She initially attributed it to a pulled muscle, but states that it has not gotten any better. Reports a history of kidney stones about 3 years ago, and states that symptoms feel similar. She required surgical intervention for those stones at that time. Reports mild nausea but no vomiting. Denies any changes in bowel/bladder habits. She has been taking Tylenol for her pain which is not particularly effective, but states that she is allergic to all other pain medication. She has also noticed increased swelling in her bilateral lower extremities. Attributes this to weight gain over the last several months. She has ongoing shortness of breath that is not any worse than usual. MD Complaint: back pain - Related Data Home Medications Medication Instructions Recorded Confirmed Colesevelam [Welchol] 1,250 mg PO BID@0900,1600 03/03/14 10/18/22 amLODIPine BESYLATE [Norvasc] 5 mg PO DAILY@0903/03/14 10/18/22 atenoloL [Tenormin] 25 mg PO BID@0900,2100 03/03/14 10/18/22 Amiodarone [Cordarone] 200 mg PO DAILY@0900 05/19/17 10/18/22 Atorvastatin [Lipitor] 5 mg PO HS@209905/19/17 10/18/22 Furosemide [Lasix] 60 mg PO DAILY@0904/08/18 10/18/22 Aspirin EC [Ecotrin Low Dose] 81 mg PO DAILY@0907/13/18 10/18/22 Calcitonin Nasal [Fortical 1 spray NASAL DAILY@89907/13/18 10/18/22 (Miacalcin)] Carboxymethyl/Gly/Poly80/Pf 1 dropper BOTH EYES QID PRN 07/13/18 10/18/22 [Refresh Optive [place]-3 Drops] EPINEPHrine [Epipen 2-Sam] 0.3 mg IM ONCE PRN 07/13/18 10/18/22 Meclizine [Antivert] 6.25 mg PO Q6H PRN 07/13/18 10/18/22 Triamcinolone Acetonide [Nasacort] 2 spray EA NOSTRIL BID PRN 07/13/18 10/18/22 amLODIPine [Norvasc] 2.5 mg PO HS 07/13/18 10/18/22 Clopidogrel [Plavix] 75 mg PO DAILY@89902/27/20 10/18/22 Omeprazole 40 mg PO DAILY@89902/27/20 10/18/22 Cetirizine HCl [Zyrtec] 2.5 mg PO BID@0900,209904/11/20 10/18/22 Olmesartan [Benicar] 20 mg PO DAILY@1300 04/11/20 10/18/22 Potassium Chloride [Klor-Con 10] 5 meq PO HS@209904/11/20 10/18/22 Potassium Chloride [Klor-Con 10] 10 meq PO DAILY@89904/11/20 10/18/22 Calcium/Magnesium/Vit D3/[place] 1 cap PO DAILY@89910/18/22 10/18/22 [Calcium-Mag Oxide-Vit D3 Sftgl] Cholecalciferol [Vitamin D3 (10 5 mcg PO DAILY@1200 10/18/22 10/18/22 Mcg = 400 Iu)] Cholecalciferol [Vitamin D3 (10 10 mcg PO DAILY@1600 10/18/22 10/18/22 Mcg = 400 Iu)] Nystatin 100,000Unit/gm Cream 1 applic TOPICAL BID 10/18/22 10/18/22 [Mycostatin Cream] Previous Rx's Medication Instructions Recorded Lidocaine 5% Patch [Lidoderm 5% 1 patch TOPICAL DAILY PRN #30 patch 11/07/23 Patch] Allergies Allergy/AdvReac Type Severity Reaction Status Date / Time iodine Allergy Severe Anaphylaxis Verified 11/07/23 06:08 shellfish derived Allergy Severe Anaphylaxis Verified 11/07/23 06:08 butorphanol tartrate Allergy Unknown Verified 11/07/23 06:08 [From Stadol] caffeine Allergy Unknown Verified 11/07/23 06:08 cefaclor [From Ceclor] Allergy Unknown Verified 11/07/23 06:08 cefpodoxime proxetil Allergy Unknown Verified 11/07/23 06:08 [From Vantin] cefuroxime axetil Allergy Unknown Verified 11/07/23 06:08 [From Ceftin] ciprofloxacin [From Cipro] Allergy Unknown Verified 11/07/23 06:08 ciprofloxacin HCl Allergy Unknown Verified 11/07/23 06:08 [From Cipro] doxepin Allergy Unknown Verified 11/07/23 06:08 Iodinated Contrast Media Allergy Unknown Verified 11/07/23 06:08 [Iodinated Contrast Media - IV Dye] ketoprofen [From Oruvail] Allergy Unknown Verified 11/07/23 06:08 lidocaine Allergy Unknown Verified 11/07/23 06:08 [From Terramycin (with lidocaine)] loratadine [From Claritin] Allergy Unknown Verified 11/07/23 06:08 methylprednisolone sodium Allergy Unknown Verified 11/07/23 06:08 succinate [From Solu-Medrol] metronidazole [From Flagyl] Allergy Unknown Verified 11/07/23 06:08 ofloxacin [From Floxin] Allergy Unknown Verified 11/07/23 06:08 oxycodone HCl [From Percocet] Allergy Unknown Verified 11/07/23 06:08 oxytetracycline Allergy Unknown Verified 11/07/23 06:08 [From Terramycin (with lidocaine)] penicillin V potassium Allergy Rash/Hives Verified 11/07/23 06:08 [From Pen-Vee K] pitavastatin calcium Allergy Unknown Verified 11/07/23 06:08 [From Livalo] propoxyphene napsylate Allergy Unknown Verified 11/07/23 06:08 [From Darvocet-N] quinapril HCl [From Accupril] Allergy Unknown Verified 11/07/23 06:08 solifenacin succinate Allergy Unknown Verified 11/07/23 06:08 [From Vesicare] Sulfa (Sulfonamide Allergy Unknown Verified 11/07/23 06:08 Antibiotics) Tetanus Vaccines and Toxoid Allergy Unknown Verified 11/07/23 06:08 [Tetanus Vaccines & Toxoid] nylon Allergy Unknown Uncoded 11/07/23 06:08 rheomacrodex Allergy Unknown Uncoded 11/07/23 06:08 trianlin Allergy Unknown Uncoded 11/07/23 06:08 Review of Systems ROS Statement: Those systems with pertinent positive or pertinent negative responses have been documented in the HPI. ROS Other: All systems not noted in ROS Statement are negative. Past Medical History Past Medical History: Atrial Fibrillation, CVA/TIA, Deep Vein Thrombosis (DVT), GERD/Reflux, Hyperlipidemia, Hypertension, Myocardial Infarction ([place]), Pulmonary Embolus ([place]), Rheumatoid Arthritis (RA) Additional Past Medical History / Comment(s): Hypoglycemia, Reynauds Syndrome. Hx ulcers, kidney stones, Shingles, H Pylori. Hiatal Hernia, Banks Palsy, Sciatcia. Hx Slight TIA, no damage. TMJ, Shingles Last Myocardial Infarction Date:: 2017 History of Any Multi-Drug Resistant Organisms: None Reported Past Surgical History: Appendectomy, Back Surgery, Cardiac Valve Replacement, Heart Catheterization With Stent, Joint Replacement, Orthopedic Surgery Additional Past Surgical History / Comment(s): Cardiac Valve Replacement 10/05. Carpal tunnel sx, hemmorhoid sx, miscarriage, bilateral carotid artery surgery, right radial heart cath with 2 stents ,lithotripsy, right shoulder surgery. BACK SX X 3 PLUS CAGE AND SCREWS, Dand C, aortic valve replacement with stent in abdominal area, sinus, stent to left upper leg (2020) , left thumb trigger finger, right index finger trigger sc 01/2022. Past Anesthesia/Blood Transfusion Reactions: Motion Sickness, Postoperative Nausea & Vomiting (PONV) Additional Past Anesthesia/Blood Transfusion Reaction / Comment(s): "Sensitive to anesthesia, a little bit goes a long way." Date of Last Stent Placement:: 05/09/17 Past Psychological History: No Psychological Hx Reported Smoking Status: Former smoker Past Alcohol Use History: None Reported Past Drug Use History: None Reported - Past Family History Mother Family Medical History: Cancer General Exam Limitations: no limitations General appearance: alert, in no apparent distress Head exam: Present: atraumatic, normocephalic, normal inspection Respiratory exam: Present: normal lung sounds bilaterally. Absent: respiratory distress, wheezes, rales, rhonchi, stridor Cardiovascular Exam: Present: regular rate, normal rhythm, normal heart sounds. Absent: systolic murmur, diastolic murmur, rubs, gallop, clicks GI/Abdominal exam: Present: soft, tenderness (RLQ), normal bowel sounds. Absent: distended, guarding, rebound, rigid Back exam: Present: CVA tenderness (R). Absent: CVA tenderness (L) Neurological exam: Present: alert, oriented X3, CN II-XII intact Psychiatric exam: Present: normal affect, normal mood Skin exam: Present: warm, dry, intact, normal color. Absent: rash Course Vital Signs 11/07/23 11/07/23 06:01 09:40 Temperature 97.7 F 97.7 F Pulse Rate 70 68 Respiratory 20 20 Rate Blood Pressure 131/56 134/58 O2 Sat by Pulse 97 97 Oximetry Medical Decision Making - Medical Decision Making This is a 78 year old female who presents to the emergency department for back pain. Was pt. sent in by a medical professional or institution? @ -No Did you speak to anyone other than the patient for history? @ -No Did you review nursing and triage notes? @ -Yes, and I agree, it is accurate with regards to the patient's symptoms. Were old charts reviewed? @ -No Differential Diagnosis? @ -Differential Back Pain: Strain, zoster, cauda equina syndrome, epidural abscess, vertebral osteomyelitis, discitis, fracture, subluxation, disc herniation, DJD, spinal st enosis, dissection, AAA, pancreatitis, peptic ulcer disease, pyelonephritis, kidney stone, this is not meant to be an all-inclusive list. EKG interpreted by me (3pts min.)? @ -EKG interpreted by me demonstrating the following: Sinus rhythm. Ventricular rate 61 bpm, IN interval 257 ms, QRS duration 163 ms, QTc 510 ms. X-rays interpreted by me (1pt min.)? @ -Not obtained CT interpreted by me (1pt min.)? @ -CT scan of the abdomen and pelvis obtained. My interpretation identifies no evidence of a ureteral calculus. U/S interpreted by me (1pt. min.)? @ -Gallbladder ultrasound obtained. My interpretation identifies no evidence of cholelithiasis. What testing was considered but not performed? (CT, X-rays, U/S, labs)? Why? @ -None What meds were considered but not given? Why? @ -None Did you discuss the management of the patient with other professionals? @ -No Did you reconcile home meds? @ -No Was smoking cessation discussed for >3mins.? @ -No Was critical care preformed (if so, how long)? @ -No Were there social determinants of health that impacted care today? How? (Homelessness, low income, unemployed, alcoholism, drug addiction, transportation, low edu. Level, literacy, decrease access to med. care, longterm, rehab)? @ -No Was there de-escalation of care discussed even if they declined? (Discuss DNR or withdrawal of care, Hospice)? @ -No What co-morbidities impacted this encounter? (DM, HTN, Smoking, COPD, CAD, Cancer, CVA, Hep., AIDS, mental health diagnosis, sleep apnea, morbid obesity)? @ -A-fib, GERD, HTN, HLD, Kidney stones Was patient admitted / discharged? @ -Discharged. Lab work demonstrates signs of dehydration and was otherwise unremarkable. Urinalysis negative for signs of infection. CT scan of the abdomen and pelvis reveals no acute process to account for the patient's symptoms, including no evidence of an obstructive calculus. She did have tenderness to the right upper quadrant, and we discussed a gallbladder ultrasound for further evaluation. This was obtained and no acute process was identified to account for the patient's pain. Discussed the possibility of symptoms being musculoskeletal in nature. She was given a liter bolus of fluids and 1 g of Tylenol in the emergency department. Given her multiple medication allergies, we were unable to try any other pain medication, however a lidocaine patch was applied which she did find somewhat helpful. Prescription for lidocaine patches provided with dosing instructions reviewed. Also discussed rens-cxd-aledags topical pain medications that she may tolerate such as topical diclofenac gel, capsaicin, and Arnicare cream. Advised she discuss this with her primary care provider. Patient discharged home in stable condition. Undiagnosed new problem with uncertain prognosis? @ -None Drug Therapy requiring intensive monitoring for toxicity (Heparin, Nitro, Insulin, Cardizem)? @ -None Were any procedures done? @ -None Diagnosis/symptom? @ -Right mid back pain Acute, or Chronic, or Acute on Chronic? @ -Acute Uncomplicated (without systemic symptoms) or Complicated (systemic symptoms)? @ -Uncomplicated Side effects of treatment? @ -None Exacerbation, Progression, or Severe Exacerbation] @ -Not applicable Poses a threat to life or bodily function? @ -No Return precautions reviewed in depth, the patient is instructed to return to the emergency department with any new, worsening, or concerning symptoms. Patient verbalized understanding. This case was discussed in detail with the attending ED physician, Dr. Perales. Presentation, findings, and treatment plan discussed in detail as well. - Lab Data Result diagrams: 11/07/23 06:25 11/07/23 06:25 Lab Results 11/07/23 11/07/23 11/07/23 Range/Units 06:25 06:25 06:25 WBC 4.4 (3.8-10.6) k/uL RBC 3.98 (3.80-5.40) m/uL Hgb 12.5 (11.4-16.0) gm/dL Hct 38.0 (34.0-46.0) % MCV 95.4 (80.0-100.0) fL MCH 31.3 (25.0-35.0) pg MCHC 32.8 (31.0-37.0) g/dL RDW 14.8 (11.5-15.5) % Plt Count 198 (150-450) k/uL MPV 7.4 Neutrophils % 59 % Lymphocytes % 25 % Monocytes % 8 % Eosinophils % 4 % Basophils % 1 % Neutrophils # 2.6 (1.3-7.7) k/uL Lymphocytes # 1.1 (1.0-4.8) k/uL Monocytes # 0.4 (0-1.0) k/uL Eosinophils # 0.2 (0-0.7) k/uL Basophils # 0.0 (0-0.2) k/uL Sodium 138 (137-145) mmol/L Potassium 4.7 (3.5-5.1) mmol/L Chloride 105 (98-107) mmol/L Carbon Dioxide 25 (22-30) mmol/L Anion Gap 8 mmol/L BUN 38 H (7-17) mg/dL Creatinine 1.18 H (0.52-1.04) mg/dL Est GFR (CKD-EPI)AfAm 52 (>60 ml/min/1.73 sqM) Est GFR (CKD-EPI)NonAf 45 (>60 ml/min/1.73 sqM) Glucose 161 H (74-99) mg/dL Plasma Lactic Acid Mikel 1.7 (0.7-2.0) mmol/L Calcium 8.9 (8.4-10.2) mg/dL Total Bilirubin 0.7 (0.2-1.3) mg/dL AST 35 (14-36) U/L ALT 32 (4-34) U/L Alkaline Phosphatase 62 (38-126) U/L Troponin I (0.000-0.034) ng/mL NT-Pro-B Natriuret Pep 329 pg/mL Total Protein 8.0 (6.3-8.2) g/dL Albumin 4.5 (3.5-5.0) g/dL Amylase 60 (30-110) U/L Lipase 101 (23-300) U/L Urine Color Urine Appearance (Clear) Urine pH (5.0-8.0) Ur Specific [place] (1.001-1.035) Urine Protein (Negative) Urine Glucose (UA) (Negative) Urine Ketones (Negative) Urine Blood (Negative) Urine Nitrite (Negative) Urine Bilirubin (Negative) Urine Urobilinogen (<2.0) mg/dL Ur Leukocyte Esterase (Negative) 11/07/23 11/07/23 Range/Units 06:25 07:15 WBC (3.8-10.6) k/uL RBC (3.80-5.40) m/uL Hgb (11.4-16.0) gm/dL Hct (34.0-46.0) % MCV (80.0-100.0) fL MCH (25.0-35.0) pg MCHC (31.0-37.0) g/dL RDW (11.5-15.5) % Plt Count (150-450) k/uL MPV Neutrophils % % Lymphocytes % % Monocytes % % Eosinophils % % Basophils % % Neutrophils # (1.3-7.7) k/uL Lymphocytes # (1.0-4.8) k/uL Monocytes # (0-1.0) k/uL Eosinophils # (0-0.7) k/uL Basophils # (0-0.2) k/uL Sodium (137-145) mmol/L Potassium (3.5-5.1) mmol/L Chloride (98-107) mmol/L Carbon Dioxide (22-30) mmol/L Anion Gap mmol/L BUN (7-17) mg/dL Creatinine (0.52-1.04) mg/dL Est GFR (CKD-EPI)AfAm (>60 ml/min/1.73 sqM) Est GFR (CKD-EPI)NonAf (>60 ml/min/1.73 sqM) Glucose (74-99) mg/dL Plasma Lactic Acid Mikel (0.7-2.0) mmol/L Calcium (8.4-10.2) mg/dL Total Bilirubin (0.2-1.3) mg/dL AST (14-36) U/L ALT (4-34) U/L Alkaline Phosphatase (38-126) U/L Troponin I <0.012 (0.000-0.034) ng/mL NT-Pro-B Natriuret Pep pg/mL Total Protein (6.3-8.2) g/dL Albumin (3.5-5.0) g/dL Amylase (30-110) U/L Lipase (23-300) U/L Urine Color Colorless Urine Appearance Clear (Clear) Urine pH 6.5 (5.0-8.0) Ur Specific [place] 1.018 (1.001-1.035) Urine Protein Trace H (Negative) Urine Glucose (UA) Negative (Negative) Urine Ketones Negative (Negative) Urine Blood Negative (Negative) Urine Nitrite Negative (Negative) Urine Bilirubin Negative (Negative) Urine Urobilinogen <2.0 (<2.0) mg/dL Ur Leukocyte Esterase Negative (Negative) - Radiology Data Radiology results: report reviewed, image reviewed Disposition Clinical Impression: Right-sided back pain Disposition: HOME SELF-CARE Instructions (If sedation given, give patient instructions): Flank Pain (ED), Back Pain (ED) Additional Instructions: Return to the emergency department with any new, worsening, or concerning symptoms. Take Tylenol as needed for pain relief. You can apply the lidocaine patches daily. Discuss the following creams with your primary care provider and other specialists: Diclofenac gel, capsaicin cream, and Arnicare cream, all of which can be purchased over the counter. Follow up with your primary care provider in 1-2 days. Prescriptions: Lidocaine 5% Patch [Lidoderm 5% Patch] 1 patch TOPICAL DAILY PRN #30 patch PRN Reason: Pain Is patient prescribed a controlled substance at d/c from ED?: No Referrals: Hakeem Torres DO [Primary Care Provider] - 1-2 days Time of Disposition: 09:26
[2023-11-07 06:21] VITALS: RESP 20; TEMP 97.7
[2023-11-07] MEDS: ACETAMINOPHEN IV (For NPO) 1,000 MG in EMPTY BAG 1 BAG IVPB STA (06:22)
[2023-11-07] MEDS: SODIUM CHLORIDE 0.9% 1,000 ML IV STA (06:23)
[2023-11-07 06:39] LABS: Basophils % (A) 1 %; Eosinophils # (A) 0.2 k/uL (0-0.7); Eosinophils % (A) 4 %; HGB 12.5 gm/dL (11.4-16.0); Lymphocytes # (A) 1.1 k/uL (1.0-4.8); Lymphocytes % (A) 25 %; MCH 31.3 pg (25.0-35.0); MCHC 32.8 g/dL (31.0-37.0); MCV 95.4 fL (80.0-100.0); Mean Platelet Volume 7.4; Monocytes # (A) 0.4 k/uL (0-1.0); Monocytes % (A) 8 %; Neutrophils # (A) 2.6 k/uL (1.3-7.7); Neutrophils % (A) 59 %; Platelet Count 198 k/uL (150-450); RBC 3.98 m/uL (3.80-5.40); RDW 14.8 % (11.5-15.5); WBC 4.4 k/uL (3.8-10.6)
[2023-11-07 07:09] LABS: ALT 32 U/L (4-34); African American GFR (CKD) 52 (>60 ml/min/1.73 sqM); Albumin 4.5 g/dL (3.5-5.0); Amylase 60 U/L (30-110); Anion Gap 8 mmol/L; Blood Urea Nitrogen 38 mg/dL (7-17); Calcium 8.9 mg/dL (8.4-10.2); Carbon Dioxide 25 mmol/L (22-30); Chloride 105 mmol/L (98-107); Glucose 161 mg/dL (74-99); Lipase 101 U/L (23-300); Non-African American GFR(CKD) 45 (>60 ml/min/1.73 sqM); Sodium 138 mmol/L (137-145); Total Bilirubin 0.7 mg/dL (0.2-1.3)
[2023-11-07 07:16] LABS: NT-Pro-B-Type Natriuretic Pept 329 pg/mL
[2023-11-07 07:19] LABS: Potassium 4.7 mmol/L (3.5-5.1)
[2023-11-07 07:20] LABS: AST 35 U/L (14-36); Alkaline Phosphatase 62 U/L (38-126)
--- NOTE | 2023-11-07 07:32 | CT ---
EXAMINATION TYPE: CT abdomen pelvis wo con DATE OF EXAM: 11/07/2023 COMPARISON: 10/17/2021 HISTORY: 78-year-old female Rt side flank pain. CT DLP: 1780.6 mGycm. Automated exposure control for dose reduction was used. TECHNIQUE: Contiguous axial scanning of the abdomen and pelvis without IV contrast. Coronal and sagit nicole reconstructions performed. FINDINGS: The heart is borderline enlarged without pericardial effusion. Partially visualized and vascular aort ic valve replacement. Dependent atelectasis in the lungs. Mosaic attenuation suggests small airways d isease. Some mild subpleural reticulations may reflect mild fibrosis. Redemonstrated prominent varices along the left heart margin and along the azygos and hemiazygos syst em along the posterior mediastinum. The infrahepatic IVC appears to be small in caliber but with a pr ominent varices joining the IVC at the level of the kidneys giving it a more typical caliber. There is low attenuation of the hepatic parenchyma now demonstrated suggesting fatty infiltration. Noncontrast appearance of the gallbladder, adrenal glands and spleen with tiny hilar splenule, pancre as show no gross abnormality. Small parapelvic cysts in the kidneys measuring up to 1.6 cm. There is a punctate 2 mm nonobstructive right renal calculus. There is no hydronephrosis. No suspicious stone along the course of the ureter s. Moderate to severe atherosclerotic calcifications abdominal aorta and iliac arteries. Bilateral commo n iliac artery stents are present. No dilated small bowel, free fluid, or free air. No mesenteric or retroperitoneal lymphadenopathy. No significant stool burden. Minimal diverticular change mid sigmoid colon. No pericolonic inflammato ry change. Bladder not distended. Uterus anteverted. Both ovaries are visualized. No abnormal fluid collection i n the pelvis or pelvic lymphadenopathy. Bones: Patient status post L5-S1 posterior and interbody lumbar fusion. There is advanced hypertrophi c facet arthropathy with degenerative grade 1 anterolisthesis L4-L5 and moderate degenerative disc di sease L3-L4 and L4-L5. There is moderate focal spinal canal stenosis L3-L4. [facility] throughout the visua lized lower thoracic and upper lumbar spine. Mild degenerative change of the hips. IMPRESSION: 1. A punctate 2 mm nonobstructive right renal calculus. No obstructing stone or hydronephrosis seen on either side. 2. Interval development of hepatic steatosis. Correlation with LFTs, lipid profile, and patient risk factors. 3. Unchanged varices along the left heart margin and along the azygos/hemiazygos system at the lower chest and within the retroperitoneum at the level of the kidneys.
[2023-11-07 07:43] LABS: Appearance,Urine Clear (Clear); Bilirubin,Urine Negative (Negative); Blood,Urine Negative (Negative); Color,Urine Colorless; Glucose,Urine (UA) Negative (Negative); Ketones,Urine Negative (Negative); Leukocyte Esterase,Urine Negative (Negative); Nitrite,Urine Negative (Negative); PH, Urine 6.5 (5.0-8.0); Protein,Urine Trace (Negative); Specific Gravity,Urine 1.018 (1.001-1.035); Urobilinogen,Urine <2.0 mg/dL (<2.0)
[2023-11-07] MEDS: LIDOCAINE 4% PATCH TOPICAL ONE (08:18)
--- NOTE | 2023-11-07 08:48 | US ---
EXAMINATION TYPE: US gallbladder DATE OF EXAM: 11/07/2023 COMPARISON: CT 11/07/2023 CLINICAL INDICATION: Female, 78 years old with history of RUQ pain and back pain; Hx Kidney stones an d HTN TECHNIQUE: Multiple sonographic images of the right upper quadrant are obtained. FINDINGS: EXAM MEASUREMENTS: Liver Length: 16 cm Gallbladder Wall: 0.1 cm CBD: 4.5 mm Right Kidney: 10.8 x 4.7 x 5.1 cm TRAINER NOTES:Difficult exam due to patient tolerance and body habitus, and overlying bowel gas Pancreas: Suboptimal visualization due to shadowing from bowel gas. Liver: Increased attenuation, decreased visualization of vessels suggestive of fatty infiltrate Gallbladder: wnl Evidence for sonographic Pena's sign: ?? Pain throughout exam - patient not able to decipher bet ween back pain and pain from probe pressure CBD: wnl Right Kidney: Limited visualization, unable to adequately assess IMPRESSION: 1. Severe hepatic steatosis. Appropriate clinical management advised. 2. No gallstones or biliary ductal dilatation. 3. Unable to adequately assess the pancreas or right kidney due to exam limitations.
[2023-11-07 10:24] VITALS: BP 134/58; PULSE 68
== END 2023-11-07 09:40 | disposition home or self-care (01) ==
LOC: EC 05:56
DX: M54.9 Dorsalgia, unspecified (principal); K76.0 Fatty (change of) liver, not elsewhere classified; Z87.891 Personal history of nicotine dependence; Z91.041 Radiographic dye allergy status; Z88.7 Allergy status to serum and vaccine; Z88.8 Allergy status to other drugs, medicaments and biological substances; Z88.0 Allergy status to penicillin; Z88.6 Allergy status to analgesic agent; Z91.013 Allergy to seafood
CPT/HCPCS: 36415; 83880; 80053; 82150; 83605; 83690; 84484; 85025; 81003; 76705; 74176; 99285; 96365; 96361; J0131

== ENCOUNTER → 2023-11-18 | Outpatient (CLI) | payer MEDICARE, BC ==
--- NOTE | 2023-11-18 11:08 | XR ---
EXAMINATION TYPE: XR abdomen 1V DATE OF EXAM: 11/18/2023 11:01 AM CLINICAL INDICATION:Female, 78 years old with history of R10.9 ABD PAIN; [facility] COMPARISON: 08/18/2021. TECHNIQUE: One radiographic view of the abdomen was obtained. FINDINGS: Limited exam due to underpenetration. The bowel gas pattern is nonspecific without dilated loops of small or large bowel. There is no evidence for organomegaly or pneumoperitoneum. The osseou s structures are intact. No abnormal calcifications are present. Fecal material and gas are demonstr ated throughout the colon and rectum. L4-L5 fixation hardware with hardware intact. IMPRESSION: Nonspecific bowel gas pattern without radiographic evidence for acute process.
== END | disposition home or self-care (01) ==
LOC: RADXRMAIN 10:39
PROVIDERS: ATTEND Internal Medicine Gastroenterology
DX: R10.9 Unspecified abdominal pain (principal)
CPT/HCPCS: 74018

== ENCOUNTER → 2023-11-29 | Outpatient (CLI) | payer MEDICARE, BC ==
[2023-11-29 14:37] LABS: Basophils # (A) 0.04 X 10*3/uL (0.00-0.10); Basophils % (A) 0.8 %; Eosinophils # (A) 0.19 X 10*3/uL (0.04-0.35); Eosinophils % (A) 3.8 %; HCT 39.7 % (37.2-46.3); HGB 12.2 g/dL (12.0-15.0); Lymphocytes # (A) 1.16 X 10*3/uL (0.90-5.00); Lymphocytes % (A) 23.4 %; MCH 29.4 pg (27.0-32.0); MCHC 30.7 g/dL (32.0-37.0); MCV 95.7 FL (80.0-97.0); Mean Platelet Volume 9.9 FL (9.5-12.2); Monocytes # (A) 0.51 X 10*3/uL (0.20-1.00); Monocytes % (A) 10.3 %; NRBC Per 100 WBC 0 X 10*3/uL (0.00-0.01); Neutrophils # (A) 3.04 X 10*3/uL (1.80-7.70); Neutrophils % (A) 61.5 %; Platelet Count 203 X 10*3/uL (140-440); RBC 4.15 X 10*6/uL (4.10-5.20); RDW 14.5 % (11.5-14.5); WBC 4.95 X 10*3/uL (4.50-10.00)
[2023-11-29 15:13] LABS: % Iron Saturation 11.91 (12.00-45.00); Albumin 4.7 g/dL (3.8-4.9); BUN/Creat Ratio 27.14 Ratio (12.00-20.00); Calcium 9.5 mg/dL (8.7-10.3); Carbon Dioxide 23.4 mmol/L (21.6-31.8); Chloride 102 mmol/L (96-109); Ferritin 26.7 ng/mL (10.0-291.0); Glucose 139 mg/dL (70-110); Iron 63 UG/DL (50-170); Magnesium 2.2 mg/dL (1.5-2.4); Phosphorus 4.4 mg/dL (2.4-5.1); Potassium 4.8 mmol/L (3.5-5.5); Sodium 140 mmol/L (135-145); Total Iron Binding Capacity 529 UG/DL (228-460); Uric Acid 8.8 mg/dL (2.9-7.7)
[2023-11-29 15:46] LABS: Appearance,Urine Clear (Clear); Bilirubin,Urine Negative (Negative); Blood,Urine Negative (Negative); Color,Urine Yellow (Yellow); Ketones,Urine Negative (Negative); Nitrite,Urine Negative (Negative); Urobilinogen,Urine 0.2 E.U./DL
[2023-11-29 15:52] LABS: Bacteria,Urine None Seen (None Seen)
[2023-11-29 22:34] LABS: Urine Creatinine 49.5 mg/dL (28.0-217.0)
== END | disposition home or self-care (01) ==
LOC: LABWHC1 09:49
PROVIDERS: ATTEND Internal Medicine Nephrology
DX: E55.9 Vitamin D deficiency, unspecified (principal); N25.81 Secondary hyperparathyroidism of renal origin; M10.9 Gout, unspecified; N39.0 Urinary tract infection, site not specified; N18.31 Chronic kidney disease, stage 3a; D63.1 Anemia in chronic kidney disease
CPT/HCPCS: 36415; 80048; 81001; 82040; 82043; 82306; 82570; 82728; 83540; 83550; 83735; 83970; 84100; 84550; 85025

== ENCOUNTER 2023-12-02 08:05 | Emergency (ER) | payer MEDICARE, BC ==
--- NOTE | 2023-12-02 08:50 | XR ---
EXAMINATION TYPE: XR foot complete LT DATE OF EXAM: 12/02/2023 8:43 AM CLINICAL INDICATION:Female, 78 years old with history of pain; [facility] COMPARISON: 04/04/2016 TECHNIQUE: XR foot complete LT examined in the AP, oblique, and lateral projections. FINDINGS: A linear lucent lines are seen seen extending through the base of the first digit proximal phalanx me dially. Mild soft tissue swelling along the medial aspect of the foot.. Multifocal degeneration lock es throughout the joints of the foot with osteophyte formation and joint space narrowing. Calcaneal p lantar spurring is present. IMPRESSION: Lucency through the medial aspect of the first digit proximal phalanx base correlate with tenderness for fracture..
--- NOTE | 2023-12-02 09:11 | ED ---
Lower Extremity Injury HPI - General Chief Complaint: Extremity Injury, Lower Stated Complaint: fall/blood thinners Time Seen by Provider: 12/02/23 08:12 Source: patient, RN notes reviewed Mode of arrival: wheelchair Limitations: no limitations - History of Present Illness Initial Comments: 78-year-old female presents emergency department chief complaint of left foot injury. She states she slipped on a rug in her bathroom states that she struck her foot and twisted. She complains of foot pain, swelling. Patient states it is worse with ambulation better with rest and elevation. No paresthesias no head injury no loss conscious - Related Data Home Medications Medication Instructions Recorded Confirmed Colesevelam [Welchol] 1,250 mg PO BID@0900,1600 03/03/14 10/18/22 amLODIPine BESYLATE [Norvasc] 5 mg PO DAILY@0900 03/03/14 10/18/22 atenoloL [Tenormin] 25 mg PO BID@0900,2100 03/03/14 10/18/22 Amiodarone [Cordarone] 200 mg PO DAILY@0900 05/19/17 10/18/22 Atorvastatin [Lipitor] 5 mg PO HS@209905/19/17 10/18/22 Furosemide [Lasix] 60 mg PO DAILY@0900 04/08/18 10/18/22 Aspirin EC [Ecotrin Low Dose] 81 mg PO DAILY@0907/13/18 10/18/22 Calcitonin Nasal [Fortical 1 spray NASAL DAILY@0907/13/18 10/18/22 (Miacalcin)] Carboxymethyl/Gly/Poly80/Pf 1 dropper BOTH EYES QID PRN 07/13/18 10/18/22 [Refresh Optive Stanley-3 Drops] EPINEPHrine [Epipen 2-Sam] 0.3 mg IM ONCE PRN 07/13/18 10/18/22 Meclizine [Antivert] 6.25 mg PO Q6H PRN 07/13/18 10/18/22 Triamcinolone Acetonide [Nasacort] 2 spray EA NOSTRIL BID PRN 07/13/18 10/18/22 amLODIPine [Norvasc] 2.5 mg PO HS 07/13/18 10/18/22 Clopidogrel [Plavix] 75 mg PO DAILY@0900 02/27/2023 Omeprazole 40 mg PO DAILY@0902/27/20 10/18/22 Cetirizine HCl [Zyrtec] 2.5 mg PO BID@09,209904/11/20 10/18/22 Olmesartan [Benicar] 20 mg PO DAILY@1300 04/11/20 10/18/22 Potassium Chloride [Klor-Con 10] 5 meq PO HS@209904/11/20 10/18/22 Potassium Chloride [Klor-Con 10] 10 meq PO DAILY@89904/11/20 10/18/22 Calcium/Magnesium/Vit D3/Howe 1 cap PO DAILY@89910/18/22 10/18/22 [Calcium-Mag Oxide-Vit D3 Sftgl] Cholecalciferol [Vitamin D3 (10 5 mcg PO DAILY@119910/18/22 10/18/22 Mcg = 400 Iu)] Cholecalciferol [Vitamin D3 (10 10 mcg PO DAILY@1600 10/18/22 10/18/22 Mcg = 400 Iu)] Nystatin 100,000Unit/gm Cream 1 applic TOPICAL BID 10/18/22 10/18/22 [Mycostatin Cream] Previous Rx's Medication Instructions Recorded Lidocaine 5% Patch [Lidoderm 5% 1 patch TOPICAL DAILY PRN #30 patch 11/07/23 Patch] Allergies Allergy/AdvReac Type Severity Reaction Status Date / Time iodine Allergy Severe Anaphylaxis Verified 12/02/23 08:10 shellfish derived Allergy Severe Anaphylaxis Verified 12/02/23 08:10 butorphanol tartrate Allergy Unknown Verified 12/02/23 08:10 [From Stadol] caffeine Allergy Unknown Verified 12/02/23 08:10 cefaclor [From Ceclor] Allergy Unknown Verified 12/02/23 08:10 cefpodoxime proxetil Allergy Unknown Verified 12/02/23 08:10 [From Vantin] cefuroxime axetil Allergy Unknown Verified 12/02/23 08:10 [From Ceftin] ciprofloxacin [From Cipro] Allergy Unknown Verified 12/02/23 08:10 ciprofloxacin HCl Allergy Unknown Verified 12/02/23 08:10 [From Cipro] doxepin Allergy Unknown Verified 12/02/23 08:10 Iodinated Contrast Media Allergy Unknown Verified 12/02/23 08:10 [Iodinated Contrast Media - IV Dye] ketoprofen [From Oruvail] Allergy Unknown Verified 12/02/23 08:10 lidocaine Allergy Unknown Verified 12/02/23 08:10 [From Terramycin (with lidocaine)] loratadine [From Claritin] Allergy Unknown Verified 12/02/23 08:10 methylprednisolone sodium Allergy Unknown Verified 12/02/23 08:10 succinate [From Solu-Medrol] metronidazole [From Flagyl] Allergy Unknown Verified 12/02/23 08:10 ofloxacin [From Floxin] Allergy Unknown Verified 12/02/23 08:10 oxycodone HCl [From Percocet] Allergy Unknown Verified 12/02/23 08:10 oxytetracycline Allergy Unknown Verified 12/02/23 08:10 [From Terramycin (with lidocaine)] penicillin V potassium Allergy Rash/Hives Verified 12/02/23 08:10 [From Pen-Vee K] pitavastatin calcium Allergy Unknown Verified 12/02/23 08:10 [From Livalo] propoxyphene napsylate Allergy Unknown Verified 12/02/23 08:10 [From Darvocet-N] quinapril HCl [From Accupril] Allergy Unknown Verified 12/02/23 08:10 solifenacin succinate Allergy Unknown Verified 12/02/23 08:10 [From Vesicare] Sulfa (Sulfonamide Allergy Unknown Verified 12/02/23 08:10 Antibiotics) Tetanus Vaccines and Toxoid Allergy Unknown Verified 12/02/23 08:10 [Tetanus Vaccines & Toxoid] nylon Allergy Unknown Uncoded 12/02/23 08:10 rheomacrodex Allergy Unknown Uncoded 12/02/23 08:10 trianlin Allergy Unknown Uncoded 12/02/23 08:10 Review of Systems ROS Statement: Those systems with pertinent positive or pertinent negative responses have been documented in the HPI. ROS Other: All systems not noted in ROS Statement are negative. Past Medical History Past Medical History: Atrial Fibrillation, CVA/TIA, Deep Vein Thrombosis (DVT), GERD/Reflux, Hyperlipidemia, Hypertension, Myocardial Infarction ([place]), Pulmonary Embolus ([place]), Rheumatoid Arthritis (RA) Additional Past Medical History / Comment(s): Hypoglycemia, Reynauds Syndrome. Hx ulcers, kidney stones, Shingles, H Pylori. Hiatal Hernia, [place] Palsy, Sciatcia. Hx Slight TIA, no damage. TMJ, Shingles Last Myocardial Infarction Date:: 2017 History of Any Multi-Drug Resistant Organisms: None Reported Past Surgical History: Appendectomy, Back Surgery, Cardiac Valve Replacement, Heart Catheterization With Stent, Joint Replacement, Orthopedic Surgery Additional Past Surgical History / Comment(s): Cardiac Valve Replacement 10/05. Carpal tunnel sx, hemmorhoid sx, miscarriage, bilateral carotid artery surgery, right radial heart cath with 2 stents ,lithotripsy, right shoulder surgery. BACK SX X 3 PLUS CAGE AND SCREWS, Dand C, aortic valve replacement with stent in abdominal area, sinus, stent to left upper leg (2020) , left thumb trigger finger, right index finger trigger sc 01/2022. Past Anesthesia/Blood Transfusion Reactions: Motion Sickness, Postoperative Nausea & Vomiting (PONV) Additional Past Anesthesia/Blood Transfusion Reaction / Comment(s): "Sensitive to anesthesia, a little bit goes a long way." Date of Last Stent Placement:: 05/09/17 Past Psychological History: No Psychological Hx Reported Smoking Status: Former smoker Past Alcohol Use History: None Reported Past Drug Use History: None Reported - Past Family History Mother Family Medical History: Cancer General Exam Limitations: no limitations General appearance: alert, in no apparent distress Head exam: Present: atraumatic, normocephalic, normal inspection Eye exam: Present: normal appearance, PERRL, EOMI. Absent: scleral icterus, conjunctival injection, periorbital swelling Respiratory exam: Present: normal lung sounds bilaterally. Absent: respiratory distress, wheezes, rales, rhonchi, stridor Cardiovascular Exam: Present: regular rate, normal rhythm, normal heart sounds. Absent: systolic murmur, diastolic murmur, rubs, gallop, clicks Extremities exam: Present: other (Left foot there is mild swelling there is ecchymosis noted tenderness over the left first MTP region) Course Vital Signs 12/02/23 12/02/23 08:08 09:50 Temperature 98 F 97.9 F Pulse Rate 60 64 Respiratory 20 18 Rate Blood Pressure 146/71 139/81 O2 Sat by Pulse 99 99 Oximetry Medical Decision Making - Medical Decision Making Was pt. sent in by a medical professional or institution (, PA, VETERINARY SURGERY TECHNICIAN, urgent care, hospital, or care home...) When possible be specific @ -No Did you speak to anyone other than the patient for history (EMS, parent, family, police, friend...)? What history was obtained from this source @ -No Did you review nursing and triage notes (agree or disagree)? Why? @ -I reviewed and agree with nursing and triage notes Were old charts reviewed (outside hosp., previous admission, EMS record, old EKG, old radiological studies, urgent care reports/EKG's, care home records)? Report findings @ -No old charts were reviewed Differential Diagnosis (chest pain, altered mental status, abdominal pain women, abdominal pain men, vaginal bleeding, weakness, fever, dyspnea, syncope, headache, dizziness, GI bleed, back pain, seizure, CVA, palpatations, mental health, musculoskeletal)? @ -Foot sprain, foot fracture EKG interpreted by me (3pts min.). @ -None X-rays interpreted by me (1pt min.). @ -X-ray left foot shows evidence of first digit fracture no metatarsal fracture CT interpreted by me (1pt min.). @ -None done U/S interpreted by me (1pt. min.). @ -None done What testing was considered but not performed or refused? (CT, X-rays, U/S, labs)? Why? @ -None What meds were considered but not given or refused? Why? @ -None Did you discuss the management of the patient with other professionals (professionals i.e. , PA, VETERINARY SURGERY TECHNICIAN, lab, RT, psych nurse, psychosocial rehabilitation counselor, bronze chaser, teacher, chief supply chain officer, nurse case management)? Give summary @ -No Was smoking cessation discussed for >3mins.? @ -No Was critical care preformed (if so, how long)? @ -No Were there social determinants of health that impacted care today? How? (Homelessness, low income, unemployed, alcoholism, drug addiction, transportation, low edu. Level, literacy, decrease access to med. care, [facility], rehab)? @ -No Was there de-escalation of care discussed even if they declined (Discuss DNR or withdrawal of care, Hospice)? DNR status @ -No What co-morbidities impacted this encounter? (DM, HTN, Smoking, COPD, CAD, Cancer, CVA, ARF, Chemo, Hep., AIDS, mental health diagnosis, sleep apnea, morbid obesity)? @ -None Was patient admitted / discharged? Hospital course, mention meds given and route, prescriptions, significant lab abnormalities, going to OR and other pertinent info. @ -Discharge patient has a toe fracture patient placed in orthopedic shoe will follow-up with orthopedics return parameters sharon. Undiagnosed new problem with uncertain prognosis? @ -No Drug Therapy requiring intensive monitoring for toxicity (Heparin, Nitro, Insulin, Cardizem)? @ -No Were any procedures done? @ -No Diagnosis/symptom? @ -Toe fracture left foot Acute, or Chronic, or Acute on Chronic? @ -Acute Uncomplicated (without systemic symptoms) or Complicated (systemic symptoms)? @ -Uncomplicated Side effects of treatment? @ -No Exacerbation, Progression, or Severe Exacerbation? @ -No Poses a threat to life or bodily function? How? (Chest pain, [place], [place], pneumonia, PE, COPD, DKA, ARF, appy, cholecystitis, CVA, Diverticulitis, Homicidal, Suicidal, threat to staff... and all critical care pts) @ -No Disposition Clinical Impression: Fracture of toe of left foot Disposition: HOME SELF-CARE Condition: Stable Instructions (If sedation given, give patient instructions): Toe Fracture (ED) Additional Instructions: Please return to the Emergency Department if symptoms worsen or any other concerns. Is patient prescribed a controlled substance at d/c from ED?: No Referrals: Hakeem Torres DO [Primary Care Provider] - 1-2 days Yaya Craven DO [Doctor of Osteopathic Medicine] - 1-2 days Time of Disposition: 09:11
[2023-12-02 10:12] VITALS: BP 139/81; PULSE 64; RESP 18; TEMP 97.9
== END 2023-12-02 11:24 | disposition home or self-care (01) ==
LOC: EC 08:05
DX: S92.902A Unspecified fracture of left foot, initial encounter for closed fracture (principal); Z87.891 Personal history of nicotine dependence; Z91.041 Radiographic dye allergy status; Z88.2 Allergy status to sulfonamides; Z88.0 Allergy status to penicillin; Z88.5 Allergy status to narcotic agent; Z91.013 Allergy to seafood; Z88.1 Allergy status to other antibiotic agents; Z88.8 Allergy status to other drugs, medicaments and biological substances; Z88.6 Allergy status to analgesic agent; X50.1XXA Overexertion from prolonged static or awkward postures, initial encounter
CPT/HCPCS: 99283

== ENCOUNTER → 2024-03-27 | Outpatient (CLI) | payer MEDICARE, BC ==
[2024-03-27 18:20] LABS: Basophils # (A) 0.06 X 10*3/uL (0.00-0.10); Basophils % (A) 1.1 %; Eosinophils # (A) 0.19 X 10*3/uL (0.04-0.35); Eosinophils % (A) 3.4 %; HCT 41.1 % (37.2-46.3); HGB 13.1 g/dL (12.0-15.0); Lymphocytes # (A) 1.03 X 10*3/uL (0.90-5.00); Lymphocytes % (A) 18.4 %; MCH 31.4 pg (27.0-32.0); MCHC 31.9 g/dL (32.0-37.0); MCV 98.6 FL (80.0-97.0); Mean Platelet Volume 9.9 FL (9.5-12.2); Monocytes # (A) 0.69 X 10*3/uL (0.20-1.00); Monocytes % (A) 12.3 %; NRBC Per 100 WBC 0 X 10*3/uL (0.00-0.01); Neutrophils # (A) 3.59 X 10*3/uL (1.80-7.70); Neutrophils % (A) 64.1 %; Platelet Count 177 X 10*3/uL (140-440); RBC 4.17 X 10*6/uL (4.10-5.20); RDW 16.1 % (11.5-14.5)
[2024-03-27 19:34] LABS: Albumin 4.5 g/dL (3.8-4.9); Blood Urea Nitrogen 32.5 mg/dL (9.0-27.0); Calcium 9.1 mg/dL (8.7-10.3); Carbon Dioxide 25.7 mmol/L (21.6-31.8); Chloride 100 mmol/L (96-109); Glucose 153 mg/dL (70-110); Iron 139 UG/DL (50-170); Magnesium 2.4 mg/dL (1.5-2.4); Phosphorus 3.8 mg/dL (2.4-5.1); Potassium 4.8 mmol/L (3.5-5.5); Sodium 139 mmol/L (135-145); Total Iron Binding Capacity 384 UG/DL (228-460); Uric Acid 9.6 mg/dL (2.9-7.7)
== END | disposition home or self-care (01) ==
LOC: LABWHC1 15:26
PROVIDERS: ATTEND Internal Medicine Nephrology
DX: N18.31 Chronic kidney disease, stage 3a
CPT/HCPCS: 36415; 72072; 80048; 82040; 82306; 82728; 83540; 83550; 83735; 83970; 84100; 84550; 85025; 99213